=== PATIENT | male | born 1945 | race Caucasian/White ===

== ENCOUNTER → 2016-07-29 16:59 | Outpatient (CLI) | payer MEDICARE ==
[2016-01-21 04:57] VITALS: BMI 41.6
[~2016-07-29 16:59] MED LIST: ARAVA10 MG PO; BABY ASPIRIN81 MG PO; BACLOFEN20 M1 PO; BUDEPRION SR150 MG PO; CARAFATE1 G PO; CATAPRES0.1 MG PO; CLEOCIN HCL150 MG PO; COZAAR25 MG PO; COZAAR50 MG PO; CYCLOSPORINE50 MG PO; DEXILANT60 MG PO; DIOVAN HCT 320/1 TA2 PO; EFFEXOR XR150 MG PO; EFFEXOR XR75 MG PO; EFFIENT10 MG PO; ENDOCET 10-3251 TAB PO; FLOMAX0.4 MG PO; FOLIC ACID1 MG PO; FUROSEMIDE20 MG PO; HYDROCODONE-APA1 TAB PO; IMODIUM A-D2 MG PO; LEVAQUIN500 MG PO; MEDROL DOSE PACK4 MG PO; METHOTREXATE2.5 MG PO; NEURONTIN 300300 MG PO; NEXIUM20 MG PO; NITROSTAT0.4 MG SL; NORCO 10/325 TA1 TA1 PO; PLAVIX75 MG PO; PRAVACHOL40 MG PO; PROSCAR5 MG PO; PROTONIX40 MG PO; SOMA350 MG PO; TRICOR145 MG PO; TRIGLIDE160 MG PO; VITAMIN D31000 UNIT PO; VYTORIN 10-40 M1 TAB PO; WELLBUTRIN SR150 MG PO; ZANAFLEX4 MG; ZANAFLEX4 MG PO; ZANTAC150 MG PO; ZESTRIL20 MG PO; ZOCOR80 MG PO; ZOFRAN4 MG PO
[2016-07-29 19:21] LABS: ANION GAP 10.4 mmol/L (8-16); CALCIUM 8.8 mg/dL (8.5-10.1); CARBON DIOXIDE 31.9 mmol/L (21.0-32.0); CREATININE - SERUM 1.4 mg/dL (0.6-1.3); POTASSIUM - SERUM 4.3 mmol/L (3.5-5.1)
== END | disposition home or self-care (01) ==
LOC: D.LABREF 16:59
PROVIDERS: Internal Medicine Interventional Cardiology
DX: I25.10 Atherosclerotic heart disease of native coronary artery without angina pectoris (principal); R60.9 Edema, unspecified

== ENCOUNTER 2016-11-05 20:36 | Emergency (ER) | payer MEDICARE ==
[2016-01-21 04:57] VITALS: BMI 41.6
[2016-11-05 23:33] LABS: HEMATOCRIT 38.8 % (42.0-54.0); HEMOGLOBIN 12.7 g/dL (13.5-17.5); LYMPHOCYTES 25.8 % (15-50); MCH 31.1 pg (26.0-34.0); MCHC 32.7 g/dL (31.0-37.0); MCV 94.9 fL (80.0-100.0); MEAN PLATELET VOLUME 9.8 fL (7.4-10.4); NEUTROPHILS 62.7 % (40-80); RBC 4.09 10x6/uL (4.20-6.10); RDW 13.4 % (11.5-14.5); WBC 9.7 10x3/uL (4.8-10.8)
[2016-11-05 23:34] LABS: PLATELET COUNT 224 10x3/uL (130-400)
[2016-11-05 23:43] LABS: ALBUMIN 3.4 g/dL (3.4-5.0); ANION GAP 10.7 mmol/L (8-16); BILIRUBIN - TOTAL 0.22 mg/dL (0.2-1.3); CALCIUM 9.2 mg/dL (8.5-10.1); CARBON DIOXIDE 29.3 mmol/L (21.0-32.0); CREATININE - SERUM 1.3 mg/dL (0.6-1.3); PROTEIN - SERUM 7.1 g/dL (6.4-8.2)
== END 2016-11-06 00:20 | disposition home or self-care (01) ==
LOC: D.ER 20:36
PROVIDERS: Nurse Practitioner Family
DX: M50.30 Other cervical disc degeneration, unspecified cervical region (principal); S16.1XXA Strain of muscle, fascia and tendon at neck level, initial encounter; X58.XXXA Exposure to other specified factors, initial encounter; Y93.89 Activity, other specified; Y92.89 Other specified places as the place of occurrence of the external cause; I10 Essential (primary) hypertension; Z95.0 Presence of cardiac pacemaker

== ENCOUNTER → 2016-12-26 14:46 | Outpatient (CLI) | payer MEDICARE ==
[2016-01-21 04:57] VITALS: BMI 41.6
== END | disposition home or self-care (01) ==
LOC: D.RAD 14:46
DX: M54.5 Low back pain (principal); R53.1 Weakness

== ENCOUNTER 2017-04-08 06:03 | Day surgery (SDC) | payer MEDICARE ==
[~2017-04-08] VITALS: Ht 165.1 cm; Wt 101.8 kg
[2017-04-08] MEDS ORDERED: OMEPRAZOLE20 M1 PO (07:23)
[2017-04-08] MEDS ORDERED: ZANTAC150 MG PO (07:23)
[2017-04-08] MEDS ORDERED: CARDIZEM CD180 MG PO (07:24)
[2017-04-08] MEDS ORDERED: AZULFIDINE500 MG PO (07:25)
[2017-04-08] MEDS ORDERED: MS CONTIN15 MG PO (07:25)
[2017-04-08] MEDS ORDERED: EFFEXOR75 MG PO (07:26)
[2017-04-08] MEDS ORDERED: VITAMIN D31000 UNIT PO (07:26)
[2017-04-08 07:32] VITALS: BP 142/62; Ht 165.1 cm; Wt 101.8 kg
[2017-04-08 08:36] LABS: HEMATOCRIT 40.6 % (42.0-54.0); HEMOGLOBIN 13.2 g/dL (13.5-17.5); MCH 32.3 pg (26.0-34.0); MCHC 32.5 g/dL (31.0-37.0); MCV 99.3 fL (80.0-100.0); MEAN PLATELET VOLUME 10.7 fL (7.4-10.4); RBC 4.09 10x6/uL (4.20-6.10); WBC 6.8 10x3/uL (4.8-10.8)
--- NOTE | 2017-04-08 08:49 | NUR ---
0850-18 BAHRAINI CRE BALLOON TO 54 BAHRAINI
--- NOTE | 2017-04-08 10:12 | NUR ---
D/C INSTRUCTIONS EXPLAINED TO PT. VOICED UNDERSTANDING. COPIES OF ALL GIVEN TO PT.
--- NOTE | 2017-04-08 10:16 | NUR ---
D/C'D HOME VIA W/C TO PRIVATE CAR.
--- NOTE | 2017-04-15 15:43 | OP ---
PATIENT NAME: MONO MENSAH MEDICAL RECORD: [id number] :49 LOCATION:D.OPS ADMISSION DATE: SURGEON: MELQUIADES GOVEA MD DATE OF OPERATION: 04/08/2017 PREOPERATIVE DIAGNOSES: 1. Volume reflux. 2. Rule out eosinophilic esophagitis. 3. Dysphagia. 4. Gastroesophageal reflux. 5. History of gastric antral vascular ectasias. POSTOPERATIVE DIAGNOSES: 1. Volume reflux. 2. Rule out eosinophilic esophagitis. 3. Dysphagia. 4. Gastroesophageal reflux. 5. History of gastric antral vascular ectasias. 6. One prepyloric erosion. 7. Grade III hiatal hernia. 8. Rule out Walls esophagus. 9. No residual gastric antral vascular ectasias. PROCEDURES: Esophagogastroduodenoscopy with antral and random esophageal biopsies. Esophageal dilation through the catheter balloon to 54-Libyan. SURGEON: Melquiades Govea MD LAND SURVEY TECHNICIAN: None. BLOOD LOSS: Minimal. ANESTHESIA: IV sedation. COMPLICATIONS: None. The risks, possible complications, and alternatives to the procedure were explained to the patient. A consent form was signed. OPERATIVE COURSE: The patient was conveyed to the gastroenterology laboratory on 04/08/2017. IV sedation was induced by the anesthesia staff. A bite block was inserted. A gastroscope was inserted into the mouth. It was advanced easily into the esophagus. The stomach and duodenum were easily intubated. I advanced the third portion of duodenum. Upon withdrawal, retroflexed and angulus views were obtained. Antral biopsies were obtained. I then withdrew into the cardia of the stomach. Through the catheter a balloon was advanced. I sequentially dilated the entire length of the esophagus to 54-Libyan. The gastroscope and esophageal balloon were removed. The gastroscope was then readvanced. There had been no false passage. No perforation. Random esophageal biopsies were obtained to rule out Walls esophagus as well as eosinophilic esophagitis. The endoscope was then withdrawn under direct vision. I will see the patient in my office in 2-3 weeks. He needs to continue on his proton pump inhibitor. OPERATIVE REPORT [id number] MONO MENSAH TRANSINT:[id number] Voice Confirmation ID: [id number] DOCUMENT ID: [id number] MELQUIADES GOVEA MD at 5865 CC: VINAYAK MCFARLANE DO and MARK CORDERO MD [id number] DICTATION DATE: 04/08/17 0903 HIGH SCHOOL CHEMISTRY TEACHER: 04/08/17 1005 [facility] 04/08/17 [id number] [place] [address]
--- NOTE | 2017-04-15 15:43 | HP ---
PATIENT: MONO MENSAH MEDICAL RECORD: [id number] ACCOUNT: [id number] LOCATION:[place] : [birth year] ADMISSION DATE: 04/08/17 HISTORY AND PHYSICAL EXAMINATION CHIEF COMPLAINT: Reflux. HISTORY OF PRESENT ILLNESS: The patient has a history of hiatal hernia and he has dysphagia at the level of the cricopharyngeus, also reflux. He has volume refluxer. Also, history of gastric antral vascular ectasias. He has noted no rectal bleeding. I will plan for an EGD with biopsies of the esophagus and stomach with esophageal dilation and possible gold probe treatment of any areas of gastric antral vascular ectasias, also esophageal biopsies to rule out eosinophilic esophagitis. The patient has explosive belching as well as bloating. Reglan helps with the volume reflux. 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 He has diffuse abdominal pain as well. The risks, possible complications, and alternatives to procedure were explained to the patient. He elects to proceed. ALLERGIES: No known drug allergies. HOME MEDICATIONS: MS Contin, baclofen, Neurontin, Azulfidine, [place], nitroglycerin, Pravachol, Effexor, Lasix, omeprazole, aspirin, Zofran, Zantac. SOCIAL HISTORY: Ex-smoker. PAST MEDICAL AND SURGICAL HISTORY: Depression, neuropathy, he is hard of hearing, hiatal hernia, gastroesophageal reflux, history of prostate cancer, history of coronary stents, ORIF, foraminotomy, carpal tunnel release, hypertension, coronary artery disease, history of pacemaker placement, history of multiple coronary stents, COPD. PHYSICAL EXAMINATION: GENERAL: The patient does not appear acutely ill. He does not appear chronically ill. VITAL SIGNS: Reviewed. HEAD: External ears appear normal. EYES: Extraocular movements are intact. NECK: Trachea is midline. CHEST: No intercostal retractions. PULMONARY: Nonlabored. No stridor. ABDOMEN: No peritonitis with movement. IMPRESSION: 1. Gastroesophageal reflux. 2. Rule out eosinophilic esophagitis. 3. Dysphagia. 4. History of hiatal hernia. PLAN: EGD with biopsies and esophageal dilation. TRANSINT:[id number] Voice Confirmation ID: [id number] DOCUMENT ID: [id number] HISTORY AND PHYSICAL [id number] MAKENNAMONOBrenda GOVEA, MELQUIADES HERRERA at 1543 CC: MATILDE DOTY MD, VINAYAK MCFARLANE DO and MARK CORDERO [id number] DICTATION DATE: 04/08/17 0841 CEMETERY LABORER: 04/08/1754 [facility] SDC 04/08/17 [address] [place] [address]
== END 2017-04-08 10:18 | disposition home or self-care (01) ==
LOC: D.OPS 06:03
PROVIDERS: Anesthesiology
DX: K25.9 Gastric ulcer, unspecified as acute or chronic, without hemorrhage or perforation (principal); K44.9 Diaphragmatic hernia without obstruction or gangrene; R13.10 Dysphagia, unspecified; I25.10 Atherosclerotic heart disease of native coronary artery without angina pectoris; Z95.5 Presence of coronary angioplasty implant and graft; I10 Essential (primary) hypertension; Z95.0 Presence of cardiac pacemaker; J44.9 Chronic obstructive pulmonary disease, unspecified; F32.9 Major depressive disorder, single episode, unspecified; G62.9 Polyneuropathy, unspecified; Z85.46 Personal history of malignant neoplasm of prostate; Z79.891 Long term (current) use of opiate analgesic; Z79.82 Long term (current) use of aspirin; Z79.899 Other long term (current) drug therapy; Z87.891 Personal history of nicotine dependence; Z01.812 Encounter for preprocedural laboratory examination

== ENCOUNTER 2018-01-01 08:35 | Day surgery (SDC) | payer MEDICARE ==
[2017-12-31 15:12] LABS: BASOPHILS 0.6 % (0-2); EOSINOPHILS 5.6 % (0-7); HEMATOCRIT 42.6 % (42.0-54.0); HEMOGLOBIN 14.2 g/dL (13.5-17.5); IMMATURE GRANULOCYTES 0.5 % (0-5); LYMPHOCYTES 25.8 % (15-50); MCH 32.4 pg (26.0-34.0); MCHC 33.3 g/dL (31.0-37.0); MCV 97.3 fL (80.0-100.0); MEAN PLATELET VOLUME 9.9 fL (7.4-10.4); MONOCYTES 9.9 % (2-11); NEUTROPHILS 57.6 % (40-80); PLATELET COUNT 297 10x3/uL (130-400); RBC 4.38 10x6/uL (4.20-6.10); RDW 13.3 % (11.5-14.5); WBC 8.8 10x3/uL (4.8-10.8)
[2017-12-31 15:20] LABS: APTT 25.4 SECONDS (22.8-39.4); INR 1.06 (0.85-1.17); PROTIME 13.4 SECONDS (11.6-15.0)
[2017-12-31 15:22] LABS: ANION GAP 11.5 mmol/L (8-16); CALCIUM 8.7 mg/dL (8.5-10.1); CARBON DIOXIDE 26.5 mmol/L (21.0-32.0); CREATININE - SERUM 1.2 mg/dL (0.6-1.3)
[~2018-01-01] VITALS: Ht 165.1 cm; Wt 100.2 kg
--- NOTE | ~2018-01-01 | OP ---
PATIENT NAME: MONO MENSAH MEDICAL RECORD: [id number] :49 LOCATION:D.OPS ADMISSION DATE: SURGEON: CEZAR SMITH MD DATE OF OPERATION: 01/01/2018 PREOPERATIVE DIAGNOSIS: Right cubital tunnel syndrome. POSTOPERATIVE DIAGNOSIS: Right cubital tunnel syndrome. PROCEDURE: Right cubital tunnel release. SURGEON: Cezar Smith MD ANESTHESIA: General. INTRAOPERATIVE COMPLICATIONS: None. SUMMARY OF PATHOLOGIC FINDINGS: The patient has very tight bands at the cubital tunnel, more so proximally. OPERATIVE SUMMARY IN DETAIL: After obtaining the appropriate preoperative orthopedic surgery consent as well as anesthetic consultation, evaluation and clearance, the patient was brought to the operating room and placed on the operating table in supine. After general laryngeal mask was administered, tourniquet was placed about the proximal aspect of the right upper extremity. Right upper extremity was then prepped and draped in routine sterile fashion. The arm was elevated and exsanguinated. Tourniquet was inflated to 250 mmHg. Planned incision was drawn with a sterile marking pin. The incision was made between the medial epicondyle and the ulnar and the olecranon. Incision was gently taken down until the ulnar nerve was identified. Serial and sequential release of the ulnar nerve was done for approximately 10 cm distal and 10 cm proximal. The ulnar nerve was not transposed. Once the ulnar was completely free of all adhesions, wound was then irrigated and closed with 2-0 Vicryl followed by 4-0 Prolene in running fashion. Sterile dressings were applied. Tourniquet was deflated. The patient was awakened and taken to the recovery room in stable condition. All final needle and sponge counts were correct. TRANSINT:[id number] Voice Confirmation ID: [id number] DOCUMENT ID: [id number] CEZAR SMITH MD at 0939 CC: [id number] DICTATION DATE: 01/07/18820 HAND COPER: 01/07/18 1114 [facility] 01/01/[address] [address]
[~2018-01-01 08:35] MED LIST changes: +AZULFIDINE500 MG PO; +CARDIZEM CD180 MG PO; +CARTIA XT120 MG PO; +EFFEXOR75 MG PO; +MS CONTIN15 MG PO; +OMEPRAZOLE20 M1 PO
[2018-01-01 08:49] VITALS: BP 151/74; Ht 165.1 cm; Wt 100.2 kg
[2018-01-01] MEDS ORDERED: DILAUDID2 MG PO (10:04)
== END 2018-01-01 11:25 | disposition home or self-care (01) ==
LOC: D.OPS 08:35 → D.PAN 09:30 → D.OPS 10:30 → D.PAN 11:00 → D.OPS 11:00
PROVIDERS: Anesthesiology
DX: G56.21 Lesion of ulnar nerve, right upper limb (principal); Z01.812 Encounter for preprocedural laboratory examination

== ENCOUNTER → 2018-01-13 16:39 | Outpatient (CLI) | payer MEDICARE ==
[2018-01-01 08:49] VITALS: BMI 36.8
[~2018-01-13 16:39] MED LIST changes: +DILAUDID2 MG PO
[2018-01-13 17:27] LABS: BASOPHILS 0.5 % (0-2); EOSINOPHILS 4.7 % (0-7); HEMATOCRIT 40.9 % (42.0-54.0); HEMOGLOBIN 13.8 g/dL (13.5-17.5); IMMATURE GRANULOCYTES 0.5 % (0-5); LYMPHOCYTES 26.3 % (15-50); MCH 32.3 pg (26.0-34.0); MCHC 33.7 g/dL (31.0-37.0); MCV 95.8 fL (80.0-100.0); MEAN PLATELET VOLUME 10.7 fL (7.4-10.4); MONOCYTES 9.6 % (2-11); NEUTROPHILS 58.4 % (40-80); PLATELET COUNT 266 10x3/uL (130-400); RBC 4.27 10x6/uL (4.20-6.10); RDW 13.4 % (11.5-14.5); WBC 7.7 10x3/uL (4.8-10.8)
== END | disposition home or self-care (01) ==
LOC: D.LABREF 16:39
PROVIDERS: Nurse Practitioner
DX: I10 Essential (primary) hypertension (principal)

== ENCOUNTER → 2018-02-02 08:09 | Outpatient (CLI) | payer MEDICARE ==
[2018-01-01 08:49] VITALS: BMI 36.8
== END | disposition home or self-care (01) ==
LOC: D.NM 08:09
DX: C61 Malignant neoplasm of prostate (principal)

== ENCOUNTER 2018-02-18 08:24 | Inpatient (IN) | payer MEDICARE ==
[~2018-02-18] VITALS: Ht 165.1 cm; Wt 110.2 kg
[~2018-02-18 08:24] MED LIST changes: +ZANTAC300 MG PO
[2018-02-18] MEDS ORDERED: CARDIZEM CD180 MG PO (08:40)
[2018-02-18] MEDS ORDERED: NORCO 7.5/325 T1 TA1 PO (08:41)
[2018-02-18] MEDS ORDERED: COZAAR25 MG PO (08:43)
[2018-02-18] MEDS ORDERED: PROTONIX40 MG PO (08:43)
[2018-02-18] MEDS ORDERED: PLAQUENIL 200200 MG PO (08:44)
[2018-02-18 08:58] VITALS: BP 131/101
[2018-02-18 09:16] LABS: HEMATOCRIT 37.7 % (42.0-54.0); HEMOGLOBIN 12.7 g/dL (13.5-17.5); LYMPHOCYTES 11.9 % (15-50); MCH 32.2 pg (26.0-34.0); MCHC 33.7 g/dL (31.0-37.0); MCV 95.4 fL (80.0-100.0); MEAN PLATELET VOLUME 9.6 fL (7.4-10.4); NEUTROPHILS 79.6 % (40-80); PLATELET COUNT 291 10x3/uL (130-400); RBC 3.95 10x6/uL (4.20-6.10); RDW 13.2 % (11.5-14.5); WBC 12.6 10x3/uL (4.8-10.8)
[2018-02-18 09:24] LABS: APTT 28.8 SECONDS (22.8-39.4); INR 1.1 (0.85-1.17); PROTIME 13.8 SECONDS (11.6-15.0)
[2018-02-18 09:32] LABS: ALBUMIN 4.1 g/dL (3.4-5.0); ALKALINE PHOSPHATASE 64 U/L (46-116); ALT (SGPT) 38 U/L (10-68); BILIRUBIN - TOTAL 0.38 mg/dL (0.2-1.3); CALC OSMOLALITY 275 mosm/kg (275-300); CALCIUM 8.8 mg/dL (8.5-10.1); CARBON DIOXIDE 22.7 mmol/L (21.0-32.0); CHLORIDE - SERUM 100 mmol/L (98-107); CREATININE - SERUM 3.6 mg/dL (0.6-1.3); GLUCOSE 105 mg/dL (74-106); POTASSIUM - SERUM 4.3 mmol/L (3.5-5.1); PROTEIN - SERUM 7.8 g/dL (6.4-8.2); SODIUM 134 mmol/L (136-145); UREA NITROGEN 35 mg/dL (7-18); eGFR NON AFRICAN AMERICAN 18 mL/min (90-120)
[2018-02-18 09:43] LABS: CKMB 58.2 U/L (0.0-3.6); TROPONIN-I < 0.017 ng/mL (0.000-0.060)
[2018-02-18 09:46] LABS: CREATINE KINASE 1824 UL (21-232)
[2018-02-18 10:51] LABS: APPEARANCE HAZY (CLEAR); BACTERIA MODERATE /hpf (NONE SEEN); BILIRUBIN NEGATIVE (NEGATIVE); COLOR YELLOW (YELLOW); EPITHELIAL CELLS 0-5 /hpf (0-5); GLUCOSE NEGATIVE (NEGATIVE); GRANULAR CAST RARE /lpf (NONE SEEN); HYALINE CAST 0-5 /lpf (NONE SEEN); KETONE NEGATIVE (NEGATIVE); MUCUS <1+ /lpf (NONE SEEN); NITRITE NEGATIVE (NEGATIVE); PROTEIN NEGATIVE (NEGATIVE); SPECIFIC GRAVITY 1.025 (1.005-1.020); UROBILINOGEN NORMAL (NORMAL); WHITE CELLS - URINE 0-5 /hpf (0-5)
[2018-02-18 13:45] VITALS: BP 125/76
[2018-02-18 16:53] VITALS: BP 125/76; BMI 36.6
[2018-02-18 18:55] LABS: PROTEIN - URINE 50.4 mg/dL (0.0-11.9)
[2018-02-18 18:57] LABS: CREATININE - URINE 247.1 mg/dL (30-125); PRO/CRE RATIO URINE 0.2 mg/g
[2018-02-18 20:00] VITALS: BP 127/85
[2018-02-19] VITALS: BP 141/96
[2018-02-19 04:00] VITALS: BP 141/90
[2018-02-19 06:26] LABS: BASOPHILS 0.1 % (0-2); HEMATOCRIT 35.9 % (42.0-54.0); HEMOGLOBIN 11.6 g/dL (13.5-17.5); IMMATURE GRANULOCYTES 0.4 % (0-5); LYMPHOCYTES 18.3 % (15-50); MCH 31.9 pg (26.0-34.0); MCHC 32.3 g/dL (31.0-37.0); MONOCYTES 9.6 % (2-11); NEUTROPHILS 69.6 % (40-80); RBC 3.64 10x6/uL (4.20-6.10); RDW 13.8 % (11.5-14.5); WBC 10.6 10x3/uL (4.8-10.8)
[2018-02-19 06:39] LABS: MCV 98.6 fL (80.0-100.0); PLATELET COUNT 214 10x3/uL (130-400)
[2018-02-19 07:09] LABS: ALBUMIN 3.5 g/dL (3.4-5.0); ALKALINE PHOSPHATASE 51 U/L (46-116); ALT (SGPT) 39 U/L (10-68); BILIRUBIN - TOTAL 0.37 mg/dL (0.2-1.3); CALCIUM 8.2 mg/dL (8.5-10.1); CHLORIDE - SERUM 101 mmol/L (98-107); GLUCOSE 93 mg/dL (74-106); POTASSIUM - SERUM 3.9 mmol/L (3.5-5.1); PROTEIN - SERUM 6.9 g/dL (6.4-8.2); SODIUM 137 mmol/L (136-145); URIC ACID 8.5 mg/dL (2.6-7.2)
[2018-02-19 07:11] LABS: CALC OSMOLALITY 284 mosm/kg (275-300); CKMB 49.1 U/L (0.0-3.6); CREATINE KINASE 1798 UL (21-232); CREATININE - SERUM 2.6 mg/dL (0.6-1.3); UREA NITROGEN 44 mg/dL (7-18); eGFR NON AFRICAN AMERICAN 26 mL/min (90-120)
[2018-02-19 09:03] VITALS: BP 215/175
[2018-02-19 11:04] VITALS: BP 113/64
[2018-02-19 12:33] VITALS: Ht 165.1 cm; Wt 110.2 kg
[2018-02-19 15:26] VITALS: BP 122/80
[2018-02-19 19:36] LABS: APPEARANCE CLEAR (CLEAR); BILIRUBIN NEGATIVE (NEGATIVE); COLOR YELLOW (YELLOW); GLUCOSE NEGATIVE (NEGATIVE); KETONE NEGATIVE (NEGATIVE); NITRITE NEGATIVE (NEGATIVE); PROTEIN TRACE mg/dL (NEGATIVE); SPECIFIC GRAVITY 1.025 (1.005-1.020); UROBILINOGEN NORMAL (NORMAL); WHITE CELLS - URINE 0-5 /hpf (0-5)
[2018-02-19 19:37] LABS: BACTERIA MODERATE /hpf (NONE SEEN); EPITHELIAL CELLS 0-5 /hpf (0-5)
[2018-02-19 20:37] VITALS: BP 119/59
[2018-02-20 01:19] VITALS: BP 120/94
[2018-02-20 05:38] VITALS: BP 138/57
[2018-02-20 06:28] LABS: BASOPHILS 0.1 % (0-2); EOSINOPHILS 2.4 % (0-7); HEMATOCRIT 35.3 % (42.0-54.0); HEMOGLOBIN 11.2 g/dL (13.5-17.5); IMMATURE GRANULOCYTES 0.3 % (0-5); LYMPHOCYTES 17.9 % (15-50); MCH 31.6 pg (26.0-34.0); MCHC 31.7 g/dL (31.0-37.0); MCV 99.7 fL (80.0-100.0); MEAN PLATELET VOLUME 10.3 fL (7.4-10.4); MONOCYTES 11.1 % (2-11); NEUTROPHILS 68.2 % (40-80); PLATELET COUNT 202 10x3/uL (130-400); RBC 3.54 10x6/uL (4.20-6.10); RDW 13.8 % (11.5-14.5); WBC 7.6 10x3/uL (4.8-10.8)
[2018-02-20 07:04] LABS: CALCIUM 8.2 mg/dL (8.5-10.1); CARBON DIOXIDE 31.8 mmol/L (21.0-32.0); CHLORIDE - SERUM 103 mmol/L (98-107); PHOSPHOROUS 3.1 mg/dL (2.5-4.9); POTASSIUM - SERUM 3.4 mmol/L (3.5-5.1); SODIUM 139 mmol/L (136-145); UREA NITROGEN 40 mg/dL (7-18)
[2018-02-20 07:09] LABS: CALC OSMOLALITY 290 mosm/kg (275-300); CREATINE KINASE 1308 UL (21-232); CREATININE - SERUM 1.6 mg/dL (0.6-1.3); GLUCOSE 156 mg/dL (74-106); eGFR NON AFRICAN AMERICAN 46 mL/min (90-120)
[2018-02-20 07:10] LABS: CKMB 17.2 U/L (0.0-3.6)
[2018-02-20 12:12] VITALS: BP 149/69
[2018-02-20 12:18] VITALS: BP 140/51
[2018-02-20 21:13] VITALS: BP 145/58
[2018-02-21 00:54] VITALS: BP 132/45
[2018-02-21 05:23] LABS: BASOPHILS 0.2 % (0-2); EOSINOPHILS 2.8 % (0-7); HEMATOCRIT 33.9 % (42.0-54.0); HEMOGLOBIN 10.9 g/dL (13.5-17.5); IMMATURE GRANULOCYTES 0.2 % (0-5); LYMPHOCYTES 13.5 % (15-50); MCH 31.8 pg (26.0-34.0); MCHC 32.2 g/dL (31.0-37.0); MCV 98.8 fL (80.0-100.0); MEAN PLATELET VOLUME 10.2 fL (7.4-10.4); MONOCYTES 12.2 % (2-11); NEUTROPHILS 71.1 % (40-80); PLATELET COUNT 199 10x3/uL (130-400); RBC 3.43 10x6/uL (4.20-6.10); RDW 13.5 % (11.5-14.5); WBC 8.6 10x3/uL (4.8-10.8)
[2018-02-21 05:25] VITALS: BP 149/47
[2018-02-21 05:44] LABS: CALCIUM 8.5 mg/dL (8.5-10.1); CARBON DIOXIDE 33.8 mmol/L (21.0-32.0); CHLORIDE - SERUM 106 mmol/L (98-107); GLUCOSE 161 mg/dL (74-106); SODIUM 140 mmol/L (136-145)
[2018-02-21 05:46] LABS: CALC OSMOLALITY 281 mosm/kg (275-300); CREATININE - SERUM 0.9 mg/dL (0.6-1.3); UREA NITROGEN 12 mg/dL (7-18); eGFR NON AFRICAN AMERICAN 89 mL/min (90-120)
[2018-02-21 06:39] LABS: CREATINE KINASE 464 UL (21-232); PHOSPHOROUS 1.1 mg/dL (2.5-4.9)
[2018-02-21 06:42] LABS: CKMB 5.1 U/L (0.0-3.6)
[2018-02-21 08:54] VITALS: BP 142/58
[2018-02-21 12:36] VITALS: BP 151/58
[2018-02-21 16:25] VITALS: BP 146/77
[2018-02-21 20:30] VITALS: BP 201/81
[2018-02-22 00:30] VITALS: BP 131/81
[2018-02-22 04:30] VITALS: BP 136/80
[2018-02-22 05:06] LABS: BASOPHILS 0.2 % (0-2); EOSINOPHILS 1.8 % (0-7); HEMOGLOBIN 11.1 g/dL (13.5-17.5); IMMATURE GRANULOCYTES 0.2 % (0-5); LYMPHOCYTES 13.4 % (15-50); MCH 32.3 pg (26.0-34.0); MCHC 33.6 g/dL (31.0-37.0); MEAN PLATELET VOLUME 10.5 fL (7.4-10.4); MONOCYTES 11.4 % (2-11); PLATELET COUNT 229 10x3/uL (130-400); RBC 3.44 10x6/uL (4.20-6.10); RDW 13.1 % (11.5-14.5)
[2018-02-22 05:10] LABS: MCV 95.9 fL (80.0-100.0)
[2018-02-22 05:32] LABS: CALCIUM 8.8 mg/dL (8.5-10.1); CARBON DIOXIDE 25.9 mmol/L (21.0-32.0); CHLORIDE - SERUM 105 mmol/L (98-107); CREATININE - SERUM 0.8 mg/dL (0.6-1.3); POTASSIUM - SERUM 3.4 mmol/L (3.5-5.1); SODIUM 140 mmol/L (136-145); eGFR NON AFRICAN AMERICAN > 90 mL/min (90-120)
[2018-02-22 05:38] LABS: CALC OSMOLALITY 277 mosm/kg (275-300); GLUCOSE 112 mg/dL (74-106); PHOSPHOROUS 1.7 mg/dL (2.5-4.9); UREA NITROGEN 7 mg/dL (7-18)
[2018-02-22 08:37] VITALS: BP 160/40
[2018-02-22 11:16] VITALS: BP 177/72
[2018-02-22] MEDS ORDERED: NEUTRA-PHOS PAC1 PK1 PO (12:29)
== END 2018-02-22 14:41 | disposition home or self-care (01) | DRG 683 ==
LOC: D.ER 08:24 → D.M2 12:03 → D.EDHOLD 12:03 → D.M2 13:48
PROVIDERS: Family Medicine; Internal Medicine Nephrology
DX: N17.9 Acute kidney failure, unspecified (principal); N39.0 Urinary tract infection, site not specified; M62.82 Rhabdomyolysis; J44.9 Chronic obstructive pulmonary disease, unspecified; K21.9 Gastro-esophageal reflux disease without esophagitis; E78.5 Hyperlipidemia, unspecified; I25.10 Atherosclerotic heart disease of native coronary artery without angina pectoris; I10 Essential (primary) hypertension; G62.9 Polyneuropathy, unspecified; E83.39 Other disorders of phosphorus metabolism; E87.6 Hypokalemia; Z85.46 Personal history of malignant neoplasm of prostate; Z95.1 Presence of aortocoronary bypass graft; Z95.0 Presence of cardiac pacemaker; Z87.891 Personal history of nicotine dependence

== ENCOUNTER 2018-04-12 09:14 | Observation (INO) | payer MEDICARE ==
[~2018-04-12] VITALS: Ht 165.1 cm; Wt 100.9 kg
--- NOTE | ~2018-04-12 | MORECARE ---
CASE MANAGEMENT DISCHARGE SUMMARY PATIENT: MONO MENSAH UNIT: [id number] ADM DATE: 04/12/18 AGE: 72 : 47 SEX: M ROOM/BED: D.2139 AUTHOR: JOSEPH RÍOS PHYSICIAN: REFERRING PHYSICIAN: NADER SHORT MD DATE OF SERVICE: 04/13/18 Discharge Plan Patient Name: MONO MENSAH Facility: [facility]:[place] : 1945 Planned Disposition: Home Anticipated Discharge Date: 04/13/18 Discharge Date: Expected LOS: 1 Initial Reviewer: [email or web address] Initial Review Date: 04/13/2018 Generated: 04/13/18 11:47 am Patient Name: MONO MENSAH Page 08540 at 1047 All edits/amendments must be made on the electronic document DICTATION DATE: 04/13/18 1047 LOCK SETTER: PAOLO 04/13/18 1047 RPT#: [id number] DC DATE: STATUS: ADM IN [facility] [address] [place] [address] END OF REPORT
--- NOTE | ~2018-04-12 | MORECARE ---
CASE MANAGEMENT DISCHARGE SUMMARY PATIENT: MONO MENSAH UNIT: [id number] ADM DATE: 04/12/18 AGE: 72 : 47 SEX: M ROOM/BED: D.6456 AUTHOR: KHUSHBU,DOC PHYSICIAN: REFERRING PHYSICIAN: NADER SHORT MD DATE OF SERVICE: 04/13/18 Discharge Plan Patient Name: MONO MENSAH Facility: [facility]:[place] : 1945 Planned Disposition: Home Anticipated Discharge Date: 04/13/18 Discharge Date: Expected LOS: 1 Initial Reviewer: [email or web address] Initial Review Date: 04/13/2018 Generated: 04/13/18 12:37 pm Comments DCP- Discharge Planning Updated by [email or web address]: Tex Lara on 04/13/18 10:[address] Patient Name: MONO MENSAH Admission Status: ER Accout number: [id number] Admission Date: 04-12-2018 : 1945 Admission Diagnosis: Attending: NADER SHORT Current LOS: 1 Anticipated DC Date: 04-13-2018 Planned Disposition: Home Primary Insurance: MEDICARE A & B Discharge Planning Comments: CM MET WITH PT AND SPOUSE IN ROOM TO DISCUSS DISCHARGE PLANNING AND NEEDS. MONO MENSAH provided verbal consent to discuss current and ongoing needs with/in the presence of: SAMUEL, SPOUSE. PT REPORTS LIVING AT HOME INDEPENDENTLY WITH SPOUSE. PT HAS CPAP THAT HE DOES NOT WEAR AND NEBULIZER FROM [facility]. PT HAS NO OUTSIDE SERVICES ASSISTING IN THE HOME. CM DISCUSSED AVAILABILITY OF HOME HEALTH, REHAB SERVICES AND MEDICAL EQUIPMENT. PT DENIES DISCHARGE NEEDS OTHER THAN OXYGEN THAT WAS ORDERED. PT NOT HAPPY ABOUT HAVING TO WEAR OXYGEN, PT ASKED CM TO MAKE ARRANGEMENTS WITH [facility]. PT REPORTS HIS IS HERE AND WILL PICK HIM UP FOR DISCHARGE HOME NOW. CM CALLED [facility], , SPOKE TO AMADOR AND PROVIDED REFERRAL INFORMATION. CM FAXED REFERRAL TO [facility] AT [phone]. [facility] TO DELIVER PORTABLE OXYGEN TO PT'S HOSPITAL ROOM FOR DISCHARGE HOME. [facility] TO ARRANGE HOME OXYGEN AT PT'S HOME AFTER HIS ARRIVAL THERE. BEDSIDE NURSE NOTIFIED. Exhauster Engineer: Tex Lara DCPIA - Discharge Planning Initial Assessment Updated by [email or web address]: Tex Lara on 04/13/18 11:31 am * Is the patient Alert and Oriented? Yes * How many steps to enter\exit or inside your home? * PCP DR. SHORT * Pharmacy [facility] * Preadmission Environment Home with Family * ADLs Independent * Equipment CPAP Nebulizer * Other Equipment [facility] - MEDICAL EQUIPMENT PROVIDER * List name and contact numbers for known caregivers / representatives who currently or will assist patient after discharge: SAMUEL MENSAH, SPOUSE, * Verbal permission to speak to the caregivers and representatives has been obtained from the patient. Yes * Community resources currently utilized None * Please name any agencies selected above. NONE * Additional services required to return to the preadmission environment? No * Can the patient safely return to the preadmission environment? Yes * Has this patient been hospitalized within the prior 30 days at any hospital? No Last DP export: 04/13/18 9:56 Patient Name: MONO MENSAH Page 59175 at 1137 All edits/amendments must be made on the electronic document DICTATION DATE: 04/13/18 1136 MELT ROOM OPERATOR: PAOLO 04/13/18 1136 RPT#: [id number] [place] DATE: STATUS: ADM IN [facility] [address] [place] [address] END OF REPORT
--- NOTE | ~2018-04-12 | HP ---
PATIENT: MONO MENSAH MEDICAL RECORD: [id number] ACCOUNT: [id number] LOCATION:[address] : [birth year] ADMISSION DATE: 04/12/18 PCP: NADER SHORT HISTORY AND PHYSICAL EXAMINATION DATE OF ADMISSION: 04/12/2018 CHIEF COMPLAINT: Weakness, wheezing and shortness of breath. HISTORY OF PRESENT ILLNESS: This is a 72-year-old white male with multiple medical problems followed by Paradise Cid APN, at [facility]. His brought him in for increased lethargy and weakness. She states the last time he was like this, he was admitted and had kidney failure. He is not sleeping well. He has a history of sleep apnea; however, has not been able to tolerate CPAP in the past. In the ER, a CAT scan and chest x-ray showed no acute problems. White count was normal. His creatinine was a little elevated at 1.9. CK little elevated at 424, but troponin is less than 0.017. ABG showed he was a little acidotic with pH of 7.28, pCO2 of 54, pO2 of 76 on 2 liters of oxygen. Urine drug screen is positive for opiates. He is admitted for further treatment. PAST MEDICAL AND SURGICAL HISTORY: He has had hypertension, heart disease, hyperlipidemia, COPD, sleep apnea, cataracts, psoriasis, depression, chronic neck pain, reflux, prostate cancer, followed at [facility], soon to be evaluated for radiation therapy. PAST SURGICAL HISTORY: Pacemaker placement, coronary stents. He has had a cervical spine surgeries, has spinal cord stimulator now. DRUG ALLERGIES: None known. HOME MEDICATIONS: Sulfasalazine 1500 mg t.i.d., baclofen 10 mg t.i.d., diltiazem CD 180 once a day, Benicar 20 mg twice a day, gabapentin 300 mg twice a day, Effexor 75 twice a day, hydrocodone 7.5/325 one pill twice a day, morphine ER 15 mg twice a day, Lasix 20 mg once a day, Zofran 4 mg p.r.n. nausea, Zantac 150 mg at bedtime, Protonix 40 mg twice a day, vitamin D3 1000 units twice a day, Plaquenil 200 mg once a day, aspirin 81 mg a day. FAMILY HISTORY: Parents had lung and heart disease. HABITS: The patient is a former smoker, no alcohol or drugs. SOCIAL HISTORY: He is , now retired. He is also disabled with his neck problems. REVIEW OF SYSTEMS: GENERAL: No major weight changes. HEENT: He has sinus problems. RESPIRATORY: He has COPD. He has nebulizer at home, but does not use it. He has sleep apnea, but is intolerant of CPAP. GASTROINTESTINAL: He has had reflux. GENITOURINARY: Again, his prostate cancer been followed by [facility] for a while, now being referred for evaluation for radiation. NEUROLOGIC: No migraines, no seizures. DERMATOLOGY: He has psoriasis. HISTORY AND PHYSICAL [id number] MONO MENSAH PSYCHIATRIC: He has depression. PHYSICAL EXAMINATION: VITAL SIGNS: Temperature 98.2, heart rate 64, respirations 18, blood pressure 144/79, O2 sat on 2 liters is 92% GENERAL: Exam took place in the Emergency Department. He is lying on the exam bed, sleeping, snoring, very difficult to arouse, most of the history is from the . HEENT: Unremarkable. NECK: Supple. No bruits. HEART: Regular rate and rhythm. LUNGS: Fairly clear, few scattered wheezes. ABDOMEN: Soft, obese. EXTREMITIES: Trace edema. MUSCULOSKELETAL: Chronic pain in his neck. LABORATORY AND DIAGNOSTIC DATA: CT of the head shows no acute process. Chest x-ray shows no acute process. CBC with a white count of 10,400, hemoglobin 12.3, hematocrit 37.8. Basic metabolic panel is all okay except creatinine elevated at 1.9. Liver function tests are okay. CK is little elevated at 424. The troponin is less than 0.017. ABG: pH 7.28, pCO2 54, pO2 76 on 2 liters of oxygen. Urine drug screen positive for opiates. Urinalysis okay. ASSESSMENT: 1. Altered mental status due to chronic obstructive pulmonary disease. 2. Obstructive sleep apnea with history of noncompliance, on CPAP. 3. Chronic pain, on morphine and [place]. 4. Prostate cancer to be evaluated soon for radiation therapy. 5. Hypertension. 6. History of heart disease. PLAN: We will consult pulmonology for his respiratory problems. He has actually never seen a game technician. May need a revisit sleep apnea. We will follow his kidney function and see if it is getting worse or if it would get better. Other tests or procedures as warranted. TRANSINT:[id number] Voice Confirmation ID: [id number] DOCUMENT ID: [id number] CHUYITA ROSALES MD at 1908 CC: [id number] DICTATION DATE: 04/13/18828 BRAKE LINING DRILLER: 04/13/18 1106 DIS IN 04/13/18 [facility] [address] [id number]
--- NOTE | ~2018-04-12 | MORECARE ---
CASE MANAGEMENT DISCHARGE SUMMARY PATIENT: MONO MENSAH UNIT: [id number] ADM DATE: 04/12/18 AGE: 72 : 47 SEX: M ROOM/BED: D.2139 AUTHOR: JOSEPH RÍOS PHYSICIAN: REFERRING PHYSICIAN: NADER SHORT MD DATE OF SERVICE: 04/13/18 Discharge Plan Patient Name: MONO MENSAH Facility: [facility]:[place] : 1945 Planned Disposition: Home Anticipated Discharge Date: 04/13/18 Discharge Date: Expected LOS: 1 Initial Reviewer: [email or web address] Initial Review Date: 04/13/2018 Generated: 04/13/18 11:56 am DCPIA - Discharge Planning Initial Assessment Updated by [email or web address]: Tex Lara on 04/13/18 10:52 am * Is the patient Alert and Oriented? Yes * How many steps to enter\exit or inside your home? * PCP DR. SHORT * Pharmacy [facility] * Preadmission Environment Home with Family * ADLs Independent * Equipment Nebulizer * Other Equipment [facility] - MEDICAL EQUIPMENT PROVIDER * List name and contact numbers for known caregivers / representatives who currently or will assist patient after discharge: SAMUEL MENSAH, SPOUSE, * Verbal permission to speak to the caregivers and representatives has been obtained from the patient. Yes * Community resources currently utilized None * Please name any agencies selected above. NONE * Additional services required to return to the preadmission environment? No * Can the patient safely return to the preadmission environment? Yes * Has this patient been hospitalized within the prior 30 days at any hospital? No External Providers External Provider: [facility] Next Contact Date: 04/13/2018 Service Request Date: Service Type: Resolution: Reviewer: Comments: Last DP export: 04/13/18 9:47 Patient Name: MONO MENSAH Page 26094 at 1056 All edits/amendments must be made on the electronic document DICTATION DATE: 04/13/18 1056 BUSINESS RESILIENCY MANAGER: PAOLO 04/13/18 1056 RPT#: [id number] DC DATE: STATUS: ADM IN [facility] [address] [place] [address] END OF REPORT
[~2018-04-12 09:14] MED LIST changes: +NEUTRA-PHOS PAC1 PK1 PO; +NORCO 7.5/325 T1 TA1 PO; +PLAQUENIL 200200 MG PO
[2018-04-12 10:46] LABS: BASOPHILS 0.5 % (0-2); EOSINOPHILS 3.5 % (0-7); HEMATOCRIT 37.8 % (42.0-54.0); HEMOGLOBIN 12.3 g/dL (13.5-17.5); IMMATURE GRANULOCYTES 0.4 % (0-5); LYMPHOCYTES 25.4 % (15-50); MCH 31.6 pg (26.0-34.0); MCHC 32.5 g/dL (31.0-37.0); MCV 97.2 fL (80.0-100.0); MEAN PLATELET VOLUME 10.5 fL (7.4-10.4); NEUTROPHILS 60.2 % (40-80); PLATELET COUNT 244 10x3/uL (130-400); RBC 3.89 10x6/uL (4.20-6.10); RDW 13.5 % (11.5-14.5); WBC 10.4 10x3/uL (4.8-10.8)
[2018-04-12 10:53] LABS: ALBUMIN 3.8 g/dL (3.4-5.0); ALKALINE PHOSPHATASE 62 U/L (46-116); ALT (SGPT) 26 U/L (10-68); BILIRUBIN - TOTAL 0.32 mg/dL (0.2-1.3); CALC OSMOLALITY 280 mosm/kg (275-300); CALCIUM 8.7 mg/dL (8.5-10.1); CARBON DIOXIDE 23.9 mmol/L (21.0-32.0); CHLORIDE - SERUM 104 mmol/L (98-107); CREATININE - SERUM 1.9 mg/dL (0.6-1.3); GLUCOSE 104 mg/dL (74-106); POTASSIUM - SERUM 4.4 mmol/L (3.5-5.1); SODIUM 140 mmol/L (136-145); UREA NITROGEN 18 mg/dL (7-18); eGFR NON AFRICAN AMERICAN 37 mL/min (90-120)
[2018-04-12 11:01] LABS: CKMB 12.2 U/L (0.0-3.6); CREATINE KINASE 424 UL (21-232); TROPONIN-I < 0.017 ng/mL (0.000-0.060)
[2018-04-12 11:41] LABS: APPEARANCE CLEAR (CLEAR); BILIRUBIN NEGATIVE (NEGATIVE); COLOR YELLOW (YELLOW); GLUCOSE NEGATIVE (NEGATIVE); KETONE NEGATIVE (NEGATIVE); NITRITE NEGATIVE (NEGATIVE); PROTEIN TRACE mg/dL (NEGATIVE); UROBILINOGEN NORMAL (NORMAL)
[2018-04-12 11:43] LABS: BACTERIA FEW /hpf (NONE SEEN); EPITHELIAL CELLS 0-5 /hpf (0-5); RED CELLS - URINE 0-5 /hpf (0-5); UDS - AMPHET NEGATIVE QUAL (NEGATIVE); UDS - BARB NEGATIVE QUAL (NEGATIVE); UDS - BENZO NEGATIVE QUAL (NEGATIVE); UDS - COCAINE NEGATIVE QUAL (NEGATIVE); UDS - OPIATE POSITIVE QUAL (NEGATIVE); UDS - PCP NEGATIVE QUAL (NEGATIVE); UDS - THC NEGATIVE QUAL (NEGATIVE); WHITE CELLS - URINE 0-5 /hpf (0-5)
[2018-04-12 11:44] LABS: HYALINE CAST 0-5 /lpf (NONE SEEN); MUCUS <1+ /lpf (NONE SEEN)
[2018-04-12 13:00] VITALS: BP 104/42
[2018-04-12 14:44] VITALS: BP 107/39
[2018-04-12] MEDS ORDERED: BENICAR20 MG PO (16:17)
[2018-04-12 16:35] VITALS: BP 119/61
[2018-04-12 17:35] VITALS: BP 119/61; Ht 165.1 cm; Wt 100.9 kg
[2018-04-12 20:52] VITALS: BP 136/97
[2018-04-13] VITALS: BP 136/68
[2018-04-13 04:00] VITALS: BP 137/61
[2018-04-13 06:50] LABS: BASOPHILS 0.1 % (0-2); EOSINOPHILS 0.1 % (0-7); HEMATOCRIT 36.4 % (42.0-54.0); HEMOGLOBIN 11.9 g/dL (13.5-17.5); IMMATURE GRANULOCYTES 0.2 % (0-5); LYMPHOCYTES 11.2 % (15-50); MCH 32.2 pg (26.0-34.0); MCHC 32.7 g/dL (31.0-37.0); MCV 98.6 fL (80.0-100.0); MEAN PLATELET VOLUME 10.2 fL (7.4-10.4); MONOCYTES 1.5 % (2-11); NEUTROPHILS 86.9 % (40-80); PLATELET COUNT 202 10x3/uL (130-400); RBC 3.69 10x6/uL (4.20-6.10); RDW 13.6 % (11.5-14.5); WBC 10.6 10x3/uL (4.8-10.8)
[2018-04-13 07:18] LABS: ANION GAP 12.2 mmol/L (8-16); CALCIUM 8.5 mg/dL (8.5-10.1); CARBON DIOXIDE 24.1 mmol/L (21.0-32.0); CREATININE - SERUM 1.3 mg/dL (0.6-1.3); MAGNESIUM - SERUM 1.9 mg/dL (1.8-2.4); PHOSPHOROUS 4.1 mg/dL (2.5-4.9); POTASSIUM - SERUM 4.3 mmol/L (3.5-5.1); THYROID STIMULATING HORMONE 0.55 uIU/mL (0.36-3.74)
[2018-04-13 08:06] VITALS: BP 146/73
[2018-04-13] MEDS ORDERED: IPRAT-ALBUT 0.5-3 ML UPD (08:50)
[2018-04-13] MEDS ORDERED: MEDROL DOSE PACK4 MG PO (08:51)
[2018-04-13 11:40] VITALS: BP 136/55
== END 2018-04-13 13:44 | disposition home or self-care (01) ==
LOC: D.ER 09:14 → D.EDHOLD 13:54 → OBSVTIME 13:54 → D.M2 15:02
PROVIDERS: Family Medicine
DX: J44.1 Chronic obstructive pulmonary disease with (acute) exacerbation (principal); N17.9 Acute kidney failure, unspecified; I10 Essential (primary) hypertension; E78.5 Hyperlipidemia, unspecified; G47.33 Obstructive sleep apnea (adult) (pediatric); Z91.19 Patient's noncompliance with other medical treatment and regimen; D64.9 Anemia, unspecified; E55.9 Vitamin D deficiency, unspecified; F32.9 Major depressive disorder, single episode, unspecified; G89.29 Other chronic pain; K21.9 Gastro-esophageal reflux disease without esophagitis; C61 Malignant neoplasm of prostate; G47.00 Insomnia, unspecified; E66.01 Morbid (severe) obesity due to excess calories; Z68.37 Body mass index [BMI] 37.0-37.9, adult; I25.10 Atherosclerotic heart disease of native coronary artery without angina pectoris

== ENCOUNTER 2018-04-25 22:54 | Inpatient (IN) | payer MEDICARE ==
[~2018-04-25] VITALS: Ht 165.1 cm; Wt 99.8 kg
--- NOTE | ~2018-04-25 | MORECARE ---
CASE MANAGEMENT DISCHARGE SUMMARY PATIENT: MONO MENSAH UNIT: [id number] ADM DATE: 04/26/18 AGE: 73 : 47 SEX: M ROOM/BED: D.2218 AUTHOR: JOSEPH RÍOS PHYSICIAN: REFERRING PHYSICIAN: NADER SHORT MD DATE OF SERVICE: 04/28/18 Discharge Plan Patient Name: MONO MENSAH Facility: [facility]:[place] : 1945 Planned Disposition: Home or Self Care Anticipated Discharge Date: Discharge Date: Expected LOS: Initial Reviewer: [email or web address] Initial Review Date: 04/26/2018 Generated: 04/28/18 2:04 pm Comments DCP- Discharge Planning Updated by [email or web address]: Valeri Coyle on 04/28/18 12:[address] Patient Name: MONO MENSAH Admission Status: ER Accout number: [id number] Admission Date: 04-26-2018 : 1945 Admission Diagnosis: Attending: NADER SHORT Current LOS: 2 Anticipated DC Date: Planned Disposition: Home or Self Care Primary Insurance: MEDICARE A & B Discharge Planning Comments: CM met with patient and to assess discharge planning needs. Patient is independent with his care at home. He has a cane (that he does not use) home o2, portable o2 ([facility]) and nebulizer at home. He does not want home health. He said his home is safe to return. IMM served and explained. Renea with [facility] will set up home vent tonight and patient should dc tomorrow. CM will continue to follow and assist with DC planning as needed It Consulting Manager: Valeri Coyle DCP- Discharge Planning Updated by [email or web address]: Valeri Coyle on 04/28/18 9:[address] SPOKE WITH [facility] THEY STATED THAT THEY HAVE NOT RECEIVED A ORDER FOR ANYTHING BUT HOME O2, SENT CLINICAL INFORMATION TO [facility] FOR HOME VENT. CM WILL CONTINUE TO FOLLOW AND ASSIST WITH DC PLANNING DCPIA - Discharge Planning Initial Assessment Updated by [email or web address]: Valeri Coyle on 04/28/18 12:58 pm * Is the patient Alert and Oriented? Yes * How many steps to enter\exit or inside your home? * PCP [place] * Pharmacy [facility] * Preadmission Environment Home with Family * ADLs Independent * Equipment Cane Nebulizer Oxygen * List name and contact numbers for known caregivers / representatives who currently or will assist patient after discharge: SAMUEL [phone] * Additional services required to return to the preadmission environment? Yes * Can the patient safely return to the preadmission environment? Yes * Has this patient been hospitalized within the prior 30 days at any hospital? No Coverage Notice Reviewer: [email or web address] Deion Coyle Notice Issued Date-Time: 04/28/2018 12:25 Notice Type: IM Discharge Notice Notice Delivered To: Patient Relationship to Patient: Holiday Detector Operator Name: Delivery Method: HAND - Hand Delivered Vero Days: Prior Verbal Notification: Recipient Understood Notice: Yes Recipient Signature: Yes Med Rec Note Co-signed by Attending: Coverage Notice Comment: Last DP export: 04/28/18 11:55 Patient Name: MONO MENSAH Page 61534 at 1304 All edits/amendments must be made on the electronic document DICTATION DATE: 04/28/18 1304 RN HOME CARE: PAOLO 04/28/18 1304 RPT#: [id number] DC DATE: STATUS: ADM IN [facility] [address] [place] [address] END OF REPORT
--- NOTE | ~2018-04-25 | HP ---
PATIENT: MONO MENSAH MEDICAL RECORD: [id number] ACCOUNT: [id number] LOCATION:D.MS [id number] : [birth year] ADMISSION DATE: 04/26/18 PCP: NADER SHORT HISTORY AND PHYSICAL EXAMINATION REASON FOR ADMISSION: Confusion and shortness of breath. HISTORY OF PRESENT ILLNESS: The patient is a 73-year-old male well known to this hospital with history of COPD, obstructive sleep apnea for which he is not using CPAP due to noncompliance. The patient was hospitalized on April 12 for similar presentation. He was seen by pulmonary and treated with neb treatments, IV steroids, BiPAP. His said he was not on antibiotics. He has been home for a couple of weeks, been doing pretty well until he awakened, confused from a nap last evening. He was more short of breath, was brought to the Emergency Room for that reason. He said he has had cough, was productive of some clear sputum and did spike a temperature to 100 degrees Fahrenheit last night. PAST MEDICAL HISTORY: O2 dependent COPD with hypercarbia; obstructive sleep apnea; essential hypertension; hyperlipidemia; psoriasis; prostate cancer, awaiting radiation therapy held at [facility]; sick sinus syndrome; coronary artery disease post PTCA, multiple; psoriatic arthritis; GERD. 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 FAMILY HISTORY: Positive for rheumatoid arthritis in mother and younger sister. SOCIAL HISTORY: He quit smoking about 8 years ago. Does not use illicit drugs. He is . HOME MEDICATIONS: Sulfasalazine 1500 mg p.o. b.i.d., Zofran 4 mg every 6 hours p.r.n. nausea, Benicar 20 mg daily, aspirin 81 mg daily, losartan 25 mg a day, clonidine 0.1 every 6 hours p.r.n. elevated blood pressure, ranitidine 300 mg a day, morphine ER 15 mg 1 every 12 hours, Baclofen 10 mg t.i.d., furosemide 20 mg q.a.m., DuoNeb updrafts 4 times daily, vitamin D 1000 units p.o. b.i.d., Protonix 40 mg daily, Plaquenil 200 mg p.o. daily, hydrocodone 7.5 daily as needed for pain. ALLERGIES: None known. REVIEW OF SYSTEMS: GENERAL: Chronically ill. No recent fever. HEENT: No recent visual change, sinus congestion, or sore throat. RESPIRATORY: Chronic shortness of breath, worse with cough productive of clear sputum for the last 8 hours. No hemoptysis. CARDIAC: No chest pain at rest or with exertion. No palpitations. GASTROINTESTINAL: No nausea or vomiting. GENITOURINARY: Has chronic trouble with nocturia and poor voiding stream and says lying down he required a catheter. He has prostate cancer, awaiting radiation therapy. ENDOCRINE: Denies polyuria, polydipsia, heat or cold intolerance. NEUROLOGIC: Denies seizures, memory loss, was confused this morning as he said. HISTORY AND PHYSICAL [id number] MONO MENSAH Also, known FLACA, which could exacerbate confusion. MUSCULOSKELETAL: Chronic arthralgias in multiple joints. Cervical and lumbar stiffness and he has chronic muscular twitching. INTEGUMENT: No rash or itching. PSYCHIATRIC: Denies depressed mood. PHYSICAL EXAMINATION: VITAL SIGNS: Show a temp of 98.1 degrees Fahrenheit it is as high of 100, O2 sat 95% on 2 liters, blood pressure 134/69, heart rate of 75, respirations of 19. GENERAL: The patient is awake, fairly oriented with poor historian. HEENT: His eyes are clear and nonicteric. Oropharynx is unremarkable. NECK: No bruits or masses, limited range of motion on forward flexion and side bending. CHEST: He has distant breath sounds without wheeze or rales. HEART: Regular without murmur. ABDOMEN: Obese, soft, nontender. EXTREMITIES: He has no peripheral edema. NEUROLOGICAL: The patient is oriented to person and place, but not time. Motor: He tends to have some rigidity in his upper extremities and intermittent twitching almost like a Anthony reflex in the upper extremities which his says is chronic. I did not stand the patient. LABORATORY [place]: [place] [address], H&H of 12.5 and 38.8. Chemistry: Sodium is 133, BUN and creatinine are 34 and 2.0, phosphorus 6.8. Liver functions are normal. TSH is normal. ABG: pH 7.276, CO2 of 56, pCO2 of 85 on 2 liters. Urine by Morales is clear. Chest x-ray, no infiltrate with COPD changes. ASSESSMENT: 1. Exacerbation of chronic obstructive pulmonary disease with leukocytosis and fever. 2. Prostate cancer. 3. Seronegative spondyloarthropathy. 4. Coronary artery disease, sick sinus syndrome, hypertension, psoriatic arthritis, hyponatremia. PLAN: The patient will be admitted and cultured, placed on updrafts, his home meds, IV Levaquin. Pulmonary consult if indicated. TRANSINT:[id number] Voice Confirmation ID: [id number] DOCUMENT ID: [id number] MATILDE DOTY MD at 0750 CC: [id number] DICTATION DATE: 04/26/18734 BREAKFAST HOSTESS: 04/26/18 1046 ADM IN [place] [id number] [place] [id number]
--- NOTE | ~2018-04-25 | MORECARE ---
CASE MANAGEMENT DISCHARGE SUMMARY PATIENT: MONO MENSAH UNIT: [id number] ADM DATE: 04/26/18 AGE: 73 : 47 SEX: M ROOM/BED: D.2218 AUTHOR: JOSEPH RÍOS PHYSICIAN: REFERRING PHYSICIAN: NADER SHORT MD DATE OF SERVICE: 04/28/18 Discharge Plan Patient Name: MONO MENSAH Facility: [facility]:[place] : 1945 Planned Disposition: Home or Self Care Anticipated Discharge Date: Discharge Date: Expected LOS: Initial Reviewer: [email or web address] Initial Review Date: 04/26/2018 Generated: 04/28/18 1:55 pm Comments DCP- Discharge Planning Updated by [email or web address]: Valeri Coyle on 04/28/18 9:[address] [facility] THEY STATED THAT THEY HAVE NOT RECEIVED A ORDER FOR ANYTHING BUT HOME O2, [facility] CM WILL CONTINUE TO FOLLOW AND ASSIST WITH DC PLANNING External Providers External [facility] Next Contact Date: Service Request Date: Service Type: Resolution: Reviewer: Comments: Patient Name: MONO MENSAH Page 34819 at 1256 All edits/amendments must be made on the electronic document DICTATION DATE: 04/28/18 1255 DELICATESSEN GOODS STOCK CLERK: PAOLO 04/28/18 1255 RPT#: [id number] DC DATE: STATUS: ADM IN [facility] [address] [place] [address] END OF REPORT
[~2018-04-25 22:54] MED LIST changes: +BENICAR20 MG PO; +IPRAT-ALBUT 0.5-3 ML UPD
[2018-04-25 23:16] VITALS: BP 126/67
[2018-04-25 23:27] LABS: BASOPHILS 0.1 % (0-2); EOSINOPHILS 1.5 % (0-7); HEMATOCRIT 38.8 % (42.0-54.0); HEMOGLOBIN 12.5 g/dL (13.5-17.5); IMMATURE GRANULOCYTES 1.3 % (0-5); LYMPHOCYTES 15.5 % (15-50); MCH 32.1 pg (26.0-34.0); MCHC 32.2 g/dL (31.0-37.0); MCV 99.7 fL (80.0-100.0); MEAN PLATELET VOLUME 10.2 fL (7.4-10.4); MONOCYTES 9.6 % (2-11); PLATELET COUNT 186 10x3/uL (130-400); RBC 3.89 10x6/uL (4.20-6.10); RDW 13.9 % (11.5-14.5); WBC 18.8 10x3/uL (4.8-10.8)
[2018-04-25 23:41] LABS: ALBUMIN 3.6 g/dL (3.4-5.0); ANION GAP 14.3 mmol/L (8-16); BILIRUBIN - TOTAL 0.34 mg/dL (0.2-1.3); CALCIUM 8.9 mg/dL (8.5-10.1); CARBON DIOXIDE 26.4 mmol/L (21.0-32.0); POTASSIUM - SERUM 4.7 mmol/L (3.5-5.1)
[2018-04-25 23:50] LABS: MAGNESIUM - SERUM 1.9 mg/dL (1.8-2.4); PHOSPHOROUS 6.8 mg/dL (2.5-4.9); THYROID STIMULATING HORMONE 2.5 uIU/mL (0.36-3.74)
[2018-04-26] VITALS (7 sets, daily range): BP systolic 116–153; BP diastolic 55–73; BMI 36.6
[2018-04-26 00:25] LABS: APPEARANCE CLEAR (CLEAR); COLOR YELLOW (YELLOW); GLUCOSE NEGATIVE (NEGATIVE); KETONE NEGATIVE (NEGATIVE); NITRITE NEGATIVE (NEGATIVE); PROTEIN NEGATIVE (NEGATIVE); UROBILINOGEN NORMAL (NORMAL)
[2018-04-26 00:26] LABS: BILIRUBIN NEGATIVE (NEGATIVE)
[2018-04-26] MEDS ORDERED: ASPIRIN81 MG PO (01:50)
[2018-04-26] MEDS ORDERED: IPRAT-ALBUT 0.5-3 ML UPD (01:52)
[2018-04-26] MEDS ORDERED: GARLIC PO (01:58)
[2018-04-26] MEDS ORDERED: FISH OIL 1,0001 CA1 PO (01:59)
[2018-04-27 04:23] LABS: BASOPHILS 0 % (0-2); EOSINOPHILS 0 % (0-7); HEMATOCRIT 35.5 % (42.0-54.0); HEMOGLOBIN 11.7 g/dL (13.5-17.5); IMMATURE GRANULOCYTES 0.5 % (0-5); LYMPHOCYTES 3.8 % (15-50); MCH 32.7 pg (26.0-34.0); MCV 99.2 fL (80.0-100.0); MEAN PLATELET VOLUME 10.3 fL (7.4-10.4); MONOCYTES 3.2 % (2-11); NEUTROPHILS 92.5 % (40-80); PLATELET COUNT 170 10x3/uL (130-400); RBC 3.58 10x6/uL (4.20-6.10); RDW 13.9 % (11.5-14.5)
[2018-04-27 04:45] LABS: CALCIUM 8.7 mg/dL (8.5-10.1); CARBON DIOXIDE 27.9 mmol/L (21.0-32.0); MAGNESIUM - SERUM 2.3 mg/dL (1.8-2.4); POTASSIUM - SERUM 4.9 mmol/L (3.5-5.1)
[2018-04-27 04:49] LABS: CREATININE - SERUM 1.2 mg/dL (0.6-1.3); PHOSPHOROUS 2.5 mg/dL (2.5-4.9)
[2018-04-27 08:24] VITALS: BP 149/69
[2018-04-27 11:56] VITALS: BP 126/50
[2018-04-27 12:31] VITALS: Ht 165.1 cm; Wt 99.8 kg
[2018-04-27 15:57] VITALS: BP 132/60
[2018-04-27 20:00] VITALS: BP 134/68
[2018-04-28] VITALS (7 sets, daily range): BP systolic 167–200; BP diastolic 72–104
[2018-04-29 04:50] VITALS: BP 207/87
[2018-04-29 09:21] LABS: SPE - A/G RATIO 1.2 (0.7-1.7); SPE - ALBUMIN 3.4 g/dL (2.9-4.4); SPE - ALPHA-1 GLOBULIN 0.4 g/dL (0.0-0.4); SPE - ALPHA-2 GLOBULIN 0.7 g/dL (0.4-1.0); SPE - BETA GLOBULIN 1.1 g/dL (0.7-1.3); SPE - GAMMA GLOBULIN 0.8 g/dL (0.4-1.8); SPE - M-SPIKE Not Observed g/dL (Not Observed); SPE - TOTAL PROTEIN 6.3 g/dL (6.0-8.5)
[2018-04-29 09:38] VITALS: BP 205/91
[2018-04-29 13:03] VITALS: BP 156/102
[2018-04-29] MEDS ORDERED: CASODEX50 MG PO (17:09)
[2018-04-29] MEDS ORDERED: CATAPRES0.1 MG PO (17:10)
[2018-04-29] MEDS ORDERED: PULMICORT0.5 MG/21 UPD (17:12)
[2018-04-29] MEDS ORDERED: CARDIZEM CD240 MG PO (17:13)
[2018-04-29 17:15] VITALS: BP 167/101
[2018-04-29] MEDS ORDERED: LEVAQUIN750 MG PO (17:15)
[2018-04-29] MEDS ORDERED: MEDROL DOSE PACK4 MG PO (17:22)
[2018-05-01 03:10] LABS: IMMUNOGLOBULIN E 16 IU/mL (0-100)
== END 2018-04-29 18:49 | disposition home or self-care (01) | DRG 189 ==
LOC: D.ER 22:54 → D.MS 04-26 00:22
PROVIDERS: Emergency Medicine; Internal Medicine Pulmonary Disease
DX: J96.22 Acute and chronic respiratory failure with hypercapnia (principal); J44.1 Chronic obstructive pulmonary disease with (acute) exacerbation; J44.0 Chronic obstructive pulmonary disease with (acute) lower respiratory infection; I13.0 Hypertensive heart and chronic kidney disease with heart failure and stage 1 through stage 4 chronic kidney disease, or unspecified chronic kidney disease; I50.32 Chronic diastolic (congestive) heart failure; J96.21 Acute and chronic respiratory failure with hypoxia; J20.9 Acute bronchitis, unspecified; G47.33 Obstructive sleep apnea (adult) (pediatric); Z91.19 Patient's noncompliance with other medical treatment and regimen; N18.9 Chronic kidney disease, unspecified; E78.5 Hyperlipidemia, unspecified; I25.10 Atherosclerotic heart disease of native coronary artery without angina pectoris; K21.9 Gastro-esophageal reflux disease without esophagitis; C61 Malignant neoplasm of prostate; M12.88 Other specific arthropathies, not elsewhere classified, other specified site; E55.9 Vitamin D deficiency, unspecified; D64.9 Anemia, unspecified; J32.9 Chronic sinusitis, unspecified; L40.50 Arthropathic psoriasis, unspecified; E66.01 Morbid (severe) obesity due to excess calories; R41.0 Disorientation, unspecified; Z87.891 Personal history of nicotine dependence; Z68.36 Body mass index [BMI] 36.0-36.9, adult

== ENCOUNTER 2018-04-30 15:04 | Emergency (ER) | payer MEDICARE ==
[~2018-04-30] VITALS: Ht 165.1 cm; Wt 99.8 kg
[~2018-04-30 15:04] MED LIST changes: +ASPIRIN81 MG PO; +CARDIZEM CD240 MG PO; +CASODEX50 MG PO; +FISH OIL 1,0001 CA1 PO; +GARLIC PO; +LEVAQUIN750 MG PO; +PULMICORT0.5 MG/21 UPD
[2018-04-30 15:12] VITALS: BP 116/75; Ht 165.1 cm; Wt 99.8 kg
== END 2018-04-30 15:53 | disposition left against medical advice (07) ==
LOC: D.ER 15:04
DX: R06.89 Other abnormalities of breathing (principal); J44.1 Chronic obstructive pulmonary disease with (acute) exacerbation; I12.9 Hypertensive chronic kidney disease with stage 1 through stage 4 chronic kidney disease, or unspecified chronic kidney disease; N18.9 Chronic kidney disease, unspecified; N40.0 Benign prostatic hyperplasia without lower urinary tract symptoms; R33.9 Retention of urine, unspecified; R41.82 Altered mental status, unspecified

== ENCOUNTER 2018-05-07 21:48 | Inpatient (IN) | payer MEDICARE ==
[~2018-05-07] VITALS: Ht 165.1 cm; Wt 98.0 kg
[2018-05-07 22:37] LABS: BASOPHILS 0.2 % (0-2); EOSINOPHILS 1.4 % (0-7); HEMATOCRIT 39.6 % (42.0-54.0); IMMATURE GRANULOCYTES 0.6 % (0-5); LYMPHOCYTES 6.7 % (15-50); MCH 32.4 pg (26.0-34.0); MCHC 32.8 g/dL (31.0-37.0); MCV 98.8 fL (80.0-100.0); MEAN PLATELET VOLUME 10.2 fL (7.4-10.4); NEUTROPHILS 84.1 % (40-80); PLATELET COUNT 201 10x3/uL (130-400); RBC 4.01 10x6/uL (4.20-6.10); RDW 13.6 % (11.5-14.5); WBC 19.5 10x3/uL (4.8-10.8)
[2018-05-07 22:51] LABS: ALBUMIN 3.5 g/dL (3.4-5.0); ALKALINE PHOSPHATASE 68 U/L (46-116); ALT (SGPT) 34 U/L (10-68); BILIRUBIN - TOTAL 0.39 mg/dL (0.2-1.3); CALC OSMOLALITY 283 mosm/kg (275-300); CALCIUM 9.4 mg/dL (8.5-10.1); CHLORIDE - SERUM 101 mmol/L (98-107); CREATININE - SERUM 2.5 mg/dL (0.6-1.3); POTASSIUM - SERUM 4.7 mmol/L (3.5-5.1); PROTEIN - SERUM 7.1 g/dL (6.4-8.2); SODIUM 136 mmol/L (136-145); UREA NITROGEN 46 mg/dL (7-18); eGFR NON AFRICAN AMERICAN 27 mL/min (90-120)
[2018-05-07 22:55] LABS: GLUCOSE 90 mg/dL (74-106)
[2018-05-07 23:02] LABS: MAGNESIUM - SERUM 1.6 mg/dL (1.8-2.4); TROPONIN-I < 0.017 ng/mL (0.000-0.060)
[2018-05-07 23:12] LABS: CREATINE KINASE 869 UL (21-232)
[2018-05-07 23:20] VITALS: BP 115/54
[2018-05-07 23:21] LABS: APPEARANCE CLEAR (CLEAR); BILIRUBIN NEGATIVE (NEGATIVE); COLOR YELLOW (YELLOW); GLUCOSE NEGATIVE (NEGATIVE); KETONE NEGATIVE (NEGATIVE); NITRITE NEGATIVE (NEGATIVE); PROTEIN NEGATIVE (NEGATIVE); SPECIFIC GRAVITY 1.015 (1.005-1.020); UROBILINOGEN NORMAL (NORMAL)
[2018-05-07 23:44] VITALS: BP 107/47
[2018-05-08] VITALS (27 sets, daily range): BP systolic 84–140; BP diastolic 43–87; Ht 165.1 cm; Wt 98.0 kg
--- NOTE | 2018-05-08 18:37 | MORECARE ---
CASE MANAGEMENT DISCHARGE SUMMARY PATIENT: MONO MENSAH UNIT: [id number] ADM DATE: 05/07/18 AGE: 73 : 47 SEX: M ROOM/BED: D.2304 AUTHOR: JOSEPH RÍOS PHYSICIAN: REFERRING PHYSICIAN: NADER SHORT MD DATE OF SERVICE: 05/08/18 Discharge Plan Patient Name: MONO MENSAH [facility] [facility] 1945 Planned Disposition: Home Anticipated Discharge Date: Discharge Date: Expected LOS: Initial Reviewer: [email or web address] Initial Review Date: 05/08/2018 Generated: 05/08/18 7:37 pm DCPIA - Discharge Planning Initial Assessment Updated by [email or web address]: Judy Lares on 05/08/18 6:33 pm * Is the patient Alert and Oriented? Yes * How many steps to enter\exit or inside your home? * PCP HAN * Pharmacy [facility] * Preadmission Environment Home with Family * ADLs Independent * Equipment Enteral Feeding and Supplies * Other Equipment CPAP, HOME / PORTABLE 02, CANE, SHOWER CHAIR * List name and contact numbers for known caregivers / representatives who currently or will assist patient after discharge: JULIÁN FLYNN DAUGHTER [phone] * Verbal permission to speak to the caregivers and representatives has been obtained from the patient. Yes * Community resources currently utilized None * Additional services required to return to the preadmission environment? No * Can the patient safely return to the preadmission environment? Yes * Has this patient been hospitalized within the prior 30 days at any hospital? Yes Patient Name: MONO MENSHA Page 08998 at 1837 All edits/amendments must be made on the electronic document DICTATION DATE: 05/08/181835 CASH SPECIALIST: PAOLO 05/08/181835 RPT#: [id number] DC DATE: STATUS: ADM IN [facility] [address] [place] [address] END OF REPORT
--- NOTE | 2018-05-08 18:44 | MORECARE ---
CASE MANAGEMENT DISCHARGE SUMMARY PATIENT: MONO MENSAH UNIT: [id number] ADM DATE: 05/07/18 AGE: 73 : 47 SEX: M ROOM/BED: D.2304 AUTHOR: KHUSHBU,DOC PHYSICIAN: REFERRING PHYSICIAN: NADER SHORT MD DATE OF SERVICE: 05/08/18 Discharge Plan Patient Name: MONO MENSAH Facility: [facility]:[place] : 1945 Planned Disposition: Home Anticipated Discharge Date: Discharge Date: Expected LOS: Initial Reviewer: [email or web address] Initial Review Date: 05/08/2018 Generated: 05/08/18 7:44 pm Comments DCP- Discharge Planning Updated by [email or web address]: Judy Lares on 05/08/18 5:[address] Patient Name: MONO MENSAH Admission Status: ER Accout number: [id number] Admission Date: 05-07-2018 : 1945 Admission Diagnosis: Attending: NADER SHORT Current LOS: 1 Anticipated DC Date: Planned Disposition: Home Primary Insurance: MEDICARE A & B Discharge Planning Comments: CM met with patient and spouse at bedside. Patient states that he plans to return home after discharge. Patient denies any discharge needs at this time. CM will continue to follow and assist with discharge planning / needs. Newscast Producer: Judy Lares DCPIA - Discharge Planning Initial Assessment Updated by [email or web address]: Judy Lares on 05/08/18 6:33 pm * Is the patient Alert and Oriented? Yes * How many steps to enter\exit or inside your home? * PCP HAN * Pharmacy [facility] * Preadmission Environment Home with Family * ADLs Independent * Equipment Enteral Feeding and Supplies * Other Equipment CPAP, HOME / PORTABLE 02, CANE, SHOWER CHAIR * List name and contact numbers for known caregivers / representatives who currently or will assist patient after discharge: JULIÁN FLYNN DAUGHTER [phone] * Verbal permission to speak to the caregivers and representatives has been obtained from the patient. Yes * Community resources currently utilized None * Additional services required to return to the preadmission environment? No * Can the patient safely return to the preadmission environment? Yes * Has this patient been hospitalized within the prior 30 days at any hospital? Yes Last DP export: 05/08/18 5:37 Patient Name: MONO MENSAH Page 58682 at 1844 All edits/amendments must be made on the electronic document DICTATION DATE: 05/08/181842 NAILER HAND: PAOLO 05/08/181842 RPT#: [id number] DC DATE: STATUS: ADM IN [facility] [address] [place] [address] END OF REPORT
[2018-05-09 00:04] VITALS: BP 108/58
[2018-05-09 05:06] VITALS: BP 93/57
[2018-05-09 08:21] VITALS: BP 142/65
--- NOTE | 2018-05-09 09:09 | HP ---
PATIENT: MONO MENSAH MEDICAL RECORD: [id number] ACCOUNT: [id number] LOCATION:[place] [address] : [birth year] ADMISSION DATE: 05/07/18 PCP: MATILDE DOTY MD HISTORY AND PHYSICAL EXAMINATION REASON FOR ADMISSION: Confusion. HISTORY OF PRESENT ILLNESS: The patient is a 73-year-old male with history of severe COPD, on BiPAP at home and prostate cancer. The said the patient had been doing his usual state until the day before admission. He seemed more fatigued and tired. On day of admission he awoke more alert, but after a nap just would not wake up. said he did not use his BiPAP as directed during the day. That reason he presented to the Emergency Room by EMS, he was hypotensive and confused, but arousable. His ammonia level was mildly elevated. Denied any recent fever, increasing cough. His said he has not been taking liquids as per usual. He had been admitted approximately 2 weeks ago with similar presentation in swqfy-se-xpmevwh renal insufficiency. He was seen by Dr. Garcia, medications were adjusted, he had been discharged home and BiPAP had been delivered. PAST MEDICAL HISTORY: COPD, prostate cancer, hypercarbia, FLACA, essential hypertension, hyperlipidemia, psoriasis, CAD post-PTCA, multiple psoriatic arthritis, GERD, sick sinus syndrome with pacemaker. PAST SURGICAL HISTORY: Cardiac pacemaker placement, carpal tunnel release, elbow release, cervical fusion, LEATHER STAKER with coronary stents, multiple history of hernia repair, history of rhabdomyolysis in 2018, spondyloarthritis, carpal tunnel release on the right, TURP. FAMILY HISTORY: Positive for RA in his mother and younger sister. SOCIAL HISTORY: He quit smoking about 8 years ago. Does not use illicit drugs. He is and lives at home with his . HOME MEDICATIONS: DuoNeb every 4 hours, aspirin 81 mg a day, baclofen 10 mg p.o. t.i.d., Casodex 50 mg daily, Pulmicort 0.5 mg per updraft b.i.d., vitamin D 1000 units p.o. b.i.d., Catapres 0.1 mg every 4 hours p.r.n. systolic blood pressure greater than 190 or diastolic greater than 110, Cardizem-CD 240 mg p.o. daily, fish oil 1000 mg p.o. b.i.d., Lasix 20 mg p.o. every morning, Neurontin 300 mg p.o. b.i.d., Happy 7.5/325 one p.o. b.i.d. p.r.n. back pain, Plaquenil 200 mg p.o. daily, MS Contin 15 mg p.o. every 12 hours, Benicar 40 mg daily, Zofran 4 mg every 4 hours p.r.n. nausea or vomiting, Protonix 40 mg p.o. daily, Zantac 150 mg p.o. at bedtime, Silvadene 1500 mg p.o. b.i.d., Effexor 75 mg p.o. b.i.d., garlic 1000 mg p.o. daily. REVIEW OF SYSTEMS: GENERAL: Chronically fatigued with inability to care for self. No recent fever. HEENT: No recent visual change, sinus congestion. He does have trouble hearing. RESPIRATORY: As above. He has chronic cough, not recently productive. He is chronically short of breath. He semi-compliant on BiPAP. CARDIAC: No palpitations, edema, or chest pain. GASTROINTESTINAL: No nausea, vomiting, change in stools or blood per rectum. GENITOURINARY: He has decreased urine output, chronically nocturia. Denies HISTORY AND PHYSICAL [id number] MONO MENSAH dysuria or hematuria. MUSCULOSKELETAL: Has chronic arthralgia in lumbar spine. ENDOCRINE: Denies polyuria, polydipsia, heat or cold intolerance. NEUROLOGIC: Has chronic tremors and muscle spasms in his left side. Confusion as mentioned by his today. PHYSICAL EXAMINATION: VITAL SIGNS: Blood pressure was 87/49, pulse of 60, respirations of 20 and sat of 97% on 2 liters. Height is 5 feet 5 inches, weight 217 pounds, temperature 99. GENERAL: The patient is chronically ill-appearing, but no acute distress. He is responsive to questions and pretty much his normal baseline from what I have seen him previously. HEENT: Normocephalic. Eyes are clear. NECK: Supple. CHEST: He has bibasilar crackles with expiratory wheezing in the upper lobes. He is not tachypneic. HEART: Regular rate without gallop. ABDOMEN: Obese, soft, nontender. GENITOURINARY: Deferred. EXTREMITIES: A 2+ mild pedal and pretibial edema of the knees bilaterally. SKIN: No obvious skin lesions appreciated. NEUROLOGIC: The patient is oriented to person. He can relate his birthday, but he is not aware that Lyndsay is coming. He did mention the New Year. He has no obvious motor deficits. He has intermittent spasms in his left upper extremity. LABORATORY DATA: Blood gas pH 7.3, pCO2 41, pO2 72. Lactic acid 0.9 on 2 [place] [address], H&H of 13 and 39 respectively, 84 polys. Urinalysis is unremarkable. Chemistry: BUN and creatinine are 46 and 2.5, elevated from discharge creatinine of 1.5. Anion gap is 16, glucose 114. Uric acid is 8.5. Ammonia is 39, creatinine kinase 869. Troponin is less than 0.017. CRP is 3.2. ProBNP is 384. Cholesterol elevated at 238. IMAGING: Chest x-ray shows low lung volumes bilaterally, stable AICD, stable neural stimulator leads. Postsurgical changes of cervical fusion. No acute findings. ASSESSMENT: 1. Hypotension, etiology unknown. 2. Yqzjk-fv-kmbxhzf renal insufficiency. 3. Chronic obstructive pulmonary disease with hypercarbia, chronic. 4. Questionable compliance on BiPAP. 5. Coronary artery disease. 6. History of arrhythmia. 7. Leukocytosis, probably from steroids. PLAN: The patient has been cultured. He will be placed in ICU overnight due to his hypotension, give fluid challenges. Pulmonary consult. Further workup pending clinical course. TRANSINT:[id number] Voice Confirmation ID: [id number] DOCUMENT ID: [id number] HISTORY AND PHYSICAL [id number] MONO MENSAH TIMOTHY MD at 0909 CC: [id number] DICTATION DATE: 05/08/18808 SHED BOSS: 05/08/18 0935 ADM IN [place] [address] [place] [address]
[2018-05-09 12:55] VITALS: BP 162/63
[2018-05-09 16:18] VITALS: BP 153/58
[2018-05-09 20:00] VITALS: BP 169/74
[2018-05-10] VITALS: BP 134/64
[2018-05-10 04:00] VITALS: BP 154/65
[2018-05-10 07:25] VITALS: BP 181/72
[2018-05-10 07:49] LABS: BASOPHILS 0.1 % (0-2); EOSINOPHILS 0.1 % (0-7); HEMATOCRIT 36.6 % (42.0-54.0); HEMOGLOBIN 12.1 g/dL (13.5-17.5); IMMATURE GRANULOCYTES 0.4 % (0-5); LYMPHOCYTES 8.3 % (15-50); MCH 32.4 pg (26.0-34.0); MCHC 33.1 g/dL (31.0-37.0); MCV 97.9 fL (80.0-100.0); MEAN PLATELET VOLUME 10.9 fL (7.4-10.4); MONOCYTES 3.6 % (2-11); NEUTROPHILS 87.5 % (40-80); RBC 3.74 10x6/uL (4.20-6.10); RDW 13.9 % (11.5-14.5); WBC 10.2 10x3/uL (4.8-10.8)
[2018-05-10 07:51] LABS: PLATELET COUNT 155 10x3/uL (130-400)
[2018-05-10 07:58] LABS: ALBUMIN 2.6 g/dL (3.4-5.0); ALKALINE PHOSPHATASE 57 U/L (46-116); ALT (SGPT) 24 U/L (10-68); BILIRUBIN - DIRECT 0.02 mg/dL (0.00-0.30); BILIRUBIN - INDIRECT 0.19 mg/dL (0.00-1.00); BILIRUBIN - TOTAL 0.21 mg/dL (0.2-1.3); CALC OSMOLALITY 280 mosm/kg (275-300); CALCIUM 8.5 mg/dL (8.5-10.1); CARBON DIOXIDE 23.4 mmol/L (21.0-32.0); CHLORIDE - SERUM 105 mmol/L (98-107); CREATININE - SERUM 0.6 mg/dL (0.6-1.3); POTASSIUM - SERUM 4.7 mmol/L (3.5-5.1); PROTEIN - SERUM 6.6 g/dL (6.4-8.2); SODIUM 139 mmol/L (136-145); UREA NITROGEN 9 mg/dL (7-18); eGFR NON AFRICAN AMERICAN > 90 mL/min (90-120)
[2018-05-10 08:03] LABS: GLUCOSE 163 mg/dL (74-106)
[2018-05-10 11:32] VITALS: BP 172/80
[2018-05-10 15:23] VITALS: BP 170/76
[2018-05-10 18:00] VITALS: BP 162/79
[2018-05-11 00:30] VITALS: BP 184/82
[2018-05-11 04:00] VITALS: BP 143/70
[2018-05-11 08:47] VITALS: BP 181/84
[2018-05-11] MEDS ORDERED: OMNICEF300 MG PO (10:36)
[2018-05-11] MEDS ORDERED: VIBRAMYCIN 100100 MG PO (10:36)
[2018-05-11] MEDS ORDERED: NEURONTIN 300300 MG PO (10:37)
[2018-05-11 12:07] VITALS: BP 171/81
--- NOTE | 2018-05-13 10:27 | MORECARE ---
CASE MANAGEMENT DISCHARGE SUMMARY PATIENT: MONO MENSAH UNIT: [id number] ADM DATE: 05/07/18 AGE: 73 : 47 SEX: M ROOM/BED: D.1212 AUTHOR: KHUSHBUDOC PHYSICIAN: REFERRING PHYSICIAN: NADER SHORT MD DATE OF SERVICE: 05/13/18 Discharge Plan Patient Name: MONO MENSAH Facility: [facility]:[place] : 1945 Planned Disposition: Home Anticipated Discharge Date: 05/11/18 Discharge Date: 05/11/2018 Expected LOS: 4 Initial Reviewer: [email or web address] Initial Review Date: 05/08/2018 Generated: 05/13/18 11:27 am Comments DCP- Discharge Planning Updated by [email or web address]: Judy Lares on 05/08/18 5:[address] Patient Name: MONO MENSAH Admission Status: ER Accout number: [id number] Admission Date: 05-07-2018 : 1945 Admission Diagnosis: Attending: NADER SHORT Current LOS: 1 Anticipated DC Date: Planned Disposition: Home Primary Insurance: MEDICARE A & B Discharge Planning Comments: CM met with patient and spouse at bedside. Patient states that he plans to return home after discharge. Patient denies any discharge needs at this time. CM will continue to follow and assist with discharge planning / needs. [place] Operator: Judy Lares DCPIA - Discharge Planning Initial Assessment Updated by [email or web address]: Judy Lares on 05/08/18 6:33 pm * Is the patient Alert and Oriented? Yes * How many steps to enter\exit or inside your home? * PCP HAN * Pharmacy [facility] * Preadmission Environment Home with Family * ADLs Independent * Equipment Enteral Feeding and Supplies * Other Equipment CPAP, HOME / PORTABLE 02, CANE, SHOWER CHAIR * List name and contact numbers for known caregivers / representatives who currently or will assist patient after discharge: JULIÁN FLYNN DAUGHTER [phone] * Verbal permission to speak to the caregivers and representatives has been obtained from the patient. Yes * Community resources currently utilized None * Additional services required to return to the preadmission environment? No * Can the patient safely return to the preadmission environment? Yes * Has this patient been hospitalized within the prior 30 days at any hospital? Yes Last DP export: 05/08/18 5:44 Patient Name: MONO MENSAH Page 16037 at 1027 All edits/amendments must be made on the electronic document DICTATION DATE: 05/13/18 1026 HAND BRIM IRONER: PAOLO 05/13/18 1026 RPT#: [id number] DC DATE:05/11/18 STATUS: DIS IN [facility] [address] [place] [address] END OF REPORT
--- NOTE | 2018-05-19 11:50 | EC ---
PATIENT:MONO MENSAH DATE OF SERVICE: 05/07/18 SEX: M MEDICAL RECORD: [id number] DATE OF : [birth year] [facility] AGE OF PATIENT: 73 ADMISSION DATE: 05/07/18 REFERRING PHYSICIAN: INTERPRETING PHYSICIAN: WILLOW SCHULTZ MD ECHOCARDIOGRAM REPORT ECHO CHARGES 4 ECHO COMPLETE Date: 05/08/18 CLINICAL DIAGNOSIS: HTN/CAD ECHOCARDIOGRAPHIC MEASUREMENTS (adult normal given) AC root (d.<3.7cm) 3.4 cm LV Septum d (<1.2 cm> 1.3 cm Valve Excursion 2.5 cm LV Septum (systole) 2.3 cm Left Atria (s.<4.0cm> 3.9 cm LVPW d(<1.2cm) 1.4 cm RV (d.<2.3cm) 2.3 cm LVPW (sytole) 2.4 cm LV diastole(<5.6CM) 5.8 cm MV E-F(>70mm/sec) cm LV systole 2.6 cm LVOT Diameter 2.0 cm MV exc.(>10mm) cm Est.ejection fraction (50-75%) % DOPPLER: LVIT cm/sec A 92.0 cm/sec E 77.0 cm/sec LA cm/sec RVSP 31.0 mmHg LVOT 167 cm/sec AOP1/2T m/s Asc. Ao 211 cm/sec RVOT 93.0 cm/sec RA cm/sec PA 116 cm/sec AV Gradient Peak 18.0 mmHg AV Mean 8.8 mmHg AV Area 2.2 cm MV Gradient Peak 6.1 mmHg MV Mean 2.1 mmHg MV Area cm COMMENTS: Circle Saw Operator: 1 VIVIANE WAGNEROE Supervisor Gas Meter Repair: 3 Dr. Corbett TAPE# PACS Pericardial Effusion N DATE OF SERVICE: Adequate 2-D echo, color flow and spectral Doppler, and M-mode. Mild LVH. LV internal dimension is normal. Wall motion is normal. EF is greater than or equal to 55%. Aortic valve sclerosis without stenosis by Doppler interrogation. Left atrium is normal at 3.9 cm. Mitral valve shows no prolapse. Trace MR. Right-sided chamber is normal. Trace TR. TRANSINT:[id number] Voice Confirmation ID: [id number] DOCUMENT ID: [id number] ECHOCARDIOGRAM REPORT [id number] MONO MENSAH GREGORY A MD at 1150 CC: [id number] DICTATION DATE: 05/08/18 1225 RESORT HOUSEKEEPER: 05/08/18 1514 DIS IN 05/11/18 [place] [id number] [place] [id number]
== END 2018-05-11 16:36 | disposition home or self-care (01) | DRG 177 ==
LOC: D.ER 21:48 → D.EDHOLD 22:56 → D.ICU 22:56 → D.M2 22:56 → D.ICU 05-08 00:30 → D.M3 05-08 21:50
PROVIDERS: Emergency Medicine; Family Medicine; ADMIT Family Medicine
PROC: 5A09457 Assistance with Respiratory Ventilation, 24-96 Consecutive Hours, Continuous Positive Airway Pressure (ICD-10-PCS; principal; 2018-05-09)
DX: J69.0 Pneumonitis due to inhalation of food and vomit (principal); J96.22 Acute and chronic respiratory failure with hypercapnia; J96.21 Acute and chronic respiratory failure with hypoxia; J44.1 Chronic obstructive pulmonary disease with (acute) exacerbation; N17.9 Acute kidney failure, unspecified; J44.0 Chronic obstructive pulmonary disease with (acute) lower respiratory infection; R41.0 Disorientation, unspecified; I95.9 Hypotension, unspecified; K21.9 Gastro-esophageal reflux disease without esophagitis; I12.9 Hypertensive chronic kidney disease with stage 1 through stage 4 chronic kidney disease, or unspecified chronic kidney disease; N18.9 Chronic kidney disease, unspecified; E66.01 Morbid (severe) obesity due to excess calories; Z68.35 Body mass index [BMI] 35.0-35.9, adult; J20.9 Acute bronchitis, unspecified; D64.9 Anemia, unspecified; E78.5 Hyperlipidemia, unspecified; E55.9 Vitamin D deficiency, unspecified; Z87.891 Personal history of nicotine dependence

== ENCOUNTER → 2018-10-21 12:26 | Outpatient (CLI) | payer MEDICARE ==
[2018-05-08 09:36] VITALS: BMI 35.9
[~2018-10-21 12:26] MED LIST changes: +OMNICEF300 MG PO; +VIBRAMYCIN 100100 MG PO
== END | disposition home or self-care (01) ==
LOC: D.RT 12:26
PROVIDERS: ATTEND Internal Medicine Pulmonary Disease
DX: J44.9 Chronic obstructive pulmonary disease, unspecified (principal)

== ENCOUNTER 2018-10-27 09:54 | Outpatient (CLI) | payer MEDICARE ==
[~2018-10-27] VITALS: Ht 165.1 cm; Wt 99.5 kg
[2018-10-27 10:55] VITALS: BP 128/65; Ht 165.1 cm; Wt 99.5 kg
[2018-10-27 13:37] LABS: CALC OSMOLALITY 291 mosm/kg (275-300); CALCIUM 8.8 mg/dL (8.5-10.1); CARBON DIOXIDE 26.2 mmol/L (21.0-32.0); CHLORIDE - SERUM 108 mmol/L (98-107); CREATININE - SERUM 0.9 mg/dL (0.6-1.3); POTASSIUM - SERUM 4.3 mmol/L (3.5-5.1); SODIUM 143 mmol/L (136-145); UREA NITROGEN 32 mg/dL (7-18); eGFR NON AFRICAN AMERICAN 88 mL/min (90-120)
[2018-10-27 13:38] LABS: GLUCOSE 98 mg/dL (74-106)
== END 2018-10-27 13:53 | disposition home or self-care (01) ==
LOC: D.OPS 09:54
PROVIDERS: ATTEND Family Medicine
DX: N17.9 Acute kidney failure, unspecified (principal); E86.0 Dehydration

== ENCOUNTER 2018-11-18 12:56 | Outpatient (CLI) | payer MEDICARE ==
[~2018-11-18] VITALS: Ht 165.1 cm; Wt 99.5 kg
[2018-11-18 13:30] VITALS: Ht 165.1 cm; Wt 99.5 kg
--- NOTE | 2018-11-18 14:00 | NUR ---
NS INFUSION INITIATED VIA RIGHT HAND. BOLUS TO INFUSE OVER ONE HOUR.
--- NOTE | 2018-11-18 15:07 | NUR ---
1500 INFUSION COMPLETED, COLA REQUESTED AND SERVED LAB NOTIFIED OF BMP REQUEST.
[2018-11-18 15:33] LABS: ANION GAP 12.3 mmol/L (8-16); CALCIUM 8.9 mg/dL (8.5-10.1); CARBON DIOXIDE 26.5 mmol/L (21.0-32.0); CREATININE - SERUM 1.2 mg/dL (0.6-1.3); POTASSIUM - SERUM 3.8 mmol/L (3.5-5.1)
--- NOTE | 2018-11-18 15:53 | NUR ---
[address] CULLEN' OFFICE. 1550 IV DC'D WITH CATH INTACT SHOES ON RELEASED IN WC GUEST HOUSE MANAGER HOME.
--- NOTE | 2018-11-18 16:00 | NUR ---
1555 DC INSTS GIVEN RELEASED IN WC DIAGNOSTIC SALES SPECIALIST HOME.
== END 2018-11-18 15:55 | disposition home or self-care (01) ==
LOC: D.OPS 12:56
PROVIDERS: ATTEND Family Medicine
DX: N17.9 Acute kidney failure, unspecified (principal); R33.9 Retention of urine, unspecified

== ENCOUNTER → 2018-12-22 13:35 | Outpatient (CLI) | payer MEDICARE ==
[2018-11-18 13:30] VITALS: BMI 36.5
== END | disposition home or self-care (01) ==
LOC: D.CT 13:35
PROVIDERS: ATTEND Clinical Nurse Specialist Family Health
DX: M25.551 Pain in right hip (principal)

== ENCOUNTER 2019-01-06 17:33 | Observation (INO) | payer MEDICARE ==
[~2019-01-06] VITALS: Ht 165.1 cm; Wt 99.8 kg
[2019-01-06 19:38] LABS: BASOPHILS 0.3 % (0-2); EOSINOPHILS 2.6 % (0-7); HEMATOCRIT 32.4 % (42.0-54.0); HEMOGLOBIN 10.8 g/dL (13.5-17.5); IMMATURE GRANULOCYTES 0.4 % (0-5); LYMPHOCYTES 13.5 % (15-50); MCHC 33.3 g/dL (31.0-37.0); MCV 95.9 fL (80.0-100.0); MEAN PLATELET VOLUME 9.4 fL (7.4-10.4); MONOCYTES 10.4 % (2-11); NEUTROPHILS 72.8 % (40-80); PLATELET COUNT 176 10x3/uL (130-400); RBC 3.38 10x6/uL (4.20-6.10); RDW 13.3 % (11.5-14.5); WBC 11.2 10x3/uL (4.8-10.8)
[2019-01-06 20:05] LABS: ALBUMIN 3.5 g/dL (3.4-5.0); ANION GAP 13.9 mmol/L (8-16); BILIRUBIN - TOTAL 0.28 mg/dL (0.2-1.3); CALCIUM 8.8 mg/dL (8.5-10.1); CARBON DIOXIDE 25.3 mmol/L (21.0-32.0); CREATININE - SERUM 2.2 mg/dL (0.6-1.3); POTASSIUM - SERUM 4.2 mmol/L (3.5-5.1); PROTEIN - SERUM 6.5 g/dL (6.4-8.2)
[2019-01-06 22:39] VITALS: BP 144/88
[2019-01-06] MEDS ORDERED: AZULFIDINE500 MG PO (23:15)
[2019-01-06 23:31] VITALS: BP 123/95; Ht 165.1 cm; Wt 99.8 kg
[2019-01-07 05:36] VITALS: BP 124/84
[2019-01-07 06:42] LABS: BASOPHILS 0.2 % (0-2); EOSINOPHILS 4.6 % (0-7); HEMATOCRIT 37.1 % (42.0-54.0); HEMOGLOBIN 12.1 g/dL (13.5-17.5); IMMATURE GRANULOCYTES 0.7 % (0-5); MCH 31.7 pg (26.0-34.0); MCHC 32.6 g/dL (31.0-37.0); MCV 97.1 fL (80.0-100.0); MEAN PLATELET VOLUME 9.7 fL (7.4-10.4); MONOCYTES 10.3 % (2-11); NEUTROPHILS 68.2 % (40-80); PLATELET COUNT 174 10x3/uL (130-400); RBC 3.82 10x6/uL (4.20-6.10); RDW 13.6 % (11.5-14.5); WBC 8.5 10x3/uL (4.8-10.8)
[2019-01-07 06:46] LABS: ALBUMIN 3.7 g/dL (3.4-5.0); ANION GAP 11.9 mmol/L (8-16); BILIRUBIN - TOTAL 0.31 mg/dL (0.2-1.3); CALCIUM 9.2 mg/dL (8.5-10.1); CARBON DIOXIDE 26.1 mmol/L (21.0-32.0)
[2019-01-07 06:47] LABS: CREATININE - SERUM 1.3 mg/dL (0.6-1.3)
[2019-01-07 09:01] VITALS: BP 106/61
--- NOTE | 2019-01-07 09:54 | MORECARE ---
CASE MANAGEMENT DISCHARGE SUMMARY PATIENT: MONO MENSAH UNIT: [id number] ADM DATE: 01/06/19 AGE: 73 : 47 SEX: M ROOM/BED: D.2230 AUTHOR: JOSEPH RÍOS PHYSICIAN: REFERRING PHYSICIAN: CHUYITA ROSALES MD DATE OF SERVICE: 01/07/19 Discharge Plan Patient Name: MONO MENSAH Facility: [facility]:[place] : 1945 Planned Disposition: Home Anticipated Discharge Date: 01/07/19 Discharge Date: Expected LOS: 1 Initial Reviewer: [email or web address] Initial Review Date: 01/06/2019 Generated: 01/07/19 10:53 am Comments DCP- Discharge Planning Updated by [email or web address]: Laila Rock on 01/07/19 8:[address] Patient Name: MONO MENSAH Admission Status: Elective Accout number: [id number] Admission Date: 01-06-2019 : 1945 Admission Diagnosis: Attending: CHUYITA ROSALES Current LOS: 1 Anticipated DC Date: 01-07-2019 Planned Disposition: Home Primary Insurance: MEDICARE A & B Discharge Planning Comments: CM MET WITH PATIENT AND HIS ABOUT DC PLANNING/NEEDS. STATES PLANS TO DC TO HOME AND DENIES NEEDS. CM TO FOLLOW. Music Assistant: Laila Rock Patient Name: MONO MENSAH Page 93414 at 0954 All edits/amendments must be made on the electronic document DICTATION DATE: 01/07/1953 MARINE EQUIPMENT TEST ENGINEER: PAOLO 01/07/19 0953 RPT#: [id number] DC DATE: STATUS: ADM IN [facility] [address] [place] [address] END OF REPORT
--- NOTE | 2019-01-08 08:30 | MORECARE ---
CASE MANAGEMENT DISCHARGE SUMMARY PATIENT: MONO MENSAH UNIT: [id number] ADM DATE: 01/06/19 AGE: 73 : [birth year] SEX: M ROOM/BED: D.2230 AUTHOR: JOSEPH RÍOS PHYSICIAN: REFERRING PHYSICIAN: CHUYITA ROSALES MD DATE OF SERVICE: 01/08/19 Discharge Plan Patient Name: MONO MENSAH Facility: [facility]:[place] : 1945 Planned Disposition: Home Anticipated Discharge Date: 01/07/19 Discharge Date: 01/07/2019 Expected LOS: 1 Initial Reviewer: [email or web address] Initial Review Date: 01/06/2019 Generated: 01/08/19 9:30 am Comments DCP- Discharge Planning Updated by [email or web address]: Laila Rock on 01/07/19 8:[address] Patient Name: MONO MENSAH Admission Status: Elective Accout number: [id number] Admission Date: 01-06-2019 : 1945 Admission Diagnosis: Attending: CHUYITA ROSALES Current LOS: 1 Anticipated DC Date: 01-07-2019 Planned Disposition: Home Primary Insurance: MEDICARE A & B Discharge Planning Comments: CM MET WITH PATIENT AND HIS ABOUT DC PLANNING/NEEDS. STATES PLANS TO DC TO HOME AND DENIES NEEDS. CM TO FOLLOW. Intervention Specialist: Laila Tay DP export: 01/07/19 8:54 a Patient Name: MONO MENSAH Page 14864 at 0830 All edits/amendments must be made on the electronic document DICTATION DATE: 01/08/19829 SKIN DRIER: PAOLO 01/08/19 0830 RPT#: [id number] DC DATE:01/07/19 STATUS: DIS IN [facility] [address] [place] [address] END OF REPORT
--- NOTE | 2019-01-09 11:21 | HP ---
PATIENT: MONO MENSAH MEDICAL RECORD: [id number] ACCOUNT: [id number] LOCATION:D.[id number] : 49 ADMISSION DATE: 01/06/19 PCP: MATILDE DOTY MD HISTORY AND PHYSICAL EXAMINATION DATE OF ADMISSION: 01/06/2019 CHIEF COMPLAINT: Sleepiness, confusion, fatigue, weakness, and decreased urinary output. HISTORY OF PRESENT ILLNESS: A 73-year-old male was brought in by his for symptoms above. She states when he gets this way his kidneys are shutting down. He was able to get a urinary specimen today because he self-caths, it looked okay, but his creatinine was 2.49. On 12/29/2018, at [facility], his creatinine was 1.5. With these symptoms, he is admitted to the hospital for acute on chronic kidney injury, weakness, and dehydration. PAST MEDICAL HISTORY: He has a psoriatic arthritis followed by rheumatology at [facility]. He has hypertension, history of prostate cancer, sleep apnea - he is on BiPAP. He has COPD, hypertension, coronary artery disease, reflux, hyperlipidemia. His creatinine in the last 2 years is running anywhere from 0.75 but mostly above 1, around 1.4 to 1.5. PAST SURGICAL HISTORY: He has had TURP. He has had angioplasties, he has had cervical fusions. He has had carpal tunnel release. He has had a pacemaker placement. ALLERGIES: HE IS INTOLERANT TO STATINS. HOME MEDICATIONS: Include sulfasalazine actually 1000 mg twice a day (this was just reduced to this dose from 1500 mg twice a day on 12/29/2018), he gets Casodex 50 mg once a day, baclofen 20 mg 3 times a day, DuoNeb q. 4 hours p.r.n. wheezing and shortness of breath, Cardizem 240 mg once a day. Fish oil 1 twice a day, olmesartan 40 mg once a day, clonidine 0.1 mg p.r.n. systolic pressure greater than 190 or diastolic pressure greater than 110, aspirin 81 mg a day, gabapentin 300 mg p.o. at bedtime, hydrocodone 7.5/325 b.i.d. p.r.n. pain, morphine long-acting 15 mg q. 12 hours, Effexor 75 mg twice a day, Lasix 20 mg once a day, Pulmicort 0.5 mg b.i.d., Zofran 4 mg q. 4-6 hours p.r.n. nausea, Protonix 40 mg twice a day, Zantac 150 mg at bedtime, vitamin D3 1000 units b.i.d., garlic 1000 mg once a day, Plaquenil 200 mg twice a day. HABITS: Former smoker, no alcohol or drugs. FAMILY HISTORY: Mother had rheumatoid arthritis. Sister had rheumatoid arthritis. SOCIAL HISTORY: Retired, and lives with his . REVIEW OF SYSTEMS: GENERAL: No major weight changes. HEENT: No particular sinus or allergy problems. RESPIRATORY: Has history of COPD and sleep apnea, on BiPAP. He is followed by Dr. Burrows. CARDIAC: Has a history of coronary artery disease, arrhythmia, followed by Dr. Olson. HISTORY AND PHYSICAL [id number] MONO MENSAH GASTROINTESTINAL: He has had reflux. GENITOURINARY: He sometimes has difficulty urinating, has to self-cath at times. He has a history of prostate cancer and recently completed chemo for that. MUSCULOSKELETAL: History of psoriatic arthritis, followed at [facility]. NEUROLOGIC: No migraines, no seizure disorder. PSYCHIATRIC: Denies depression or melancholia. PHYSICAL EXAMINATION: VITAL SIGNS: Temperature 98.4, pulse 72, respirations 18, blood pressure 144/88, O2 sat 94% on 2 liters of oxygen. GENERAL: In my office, the patient was sleeping and difficult to arouse. He was awakened and he was able to walk down to the lab and give blood and give a urine specimen and when he was brought back to the room, he sat down in his chair and then fell asleep again. SKIN: Warm and dry. HEENT: Grossly within normal limits. NECK: Supple. HEART: Regular rate and rhythm. LUNGS: Fairly clear. Scattered wheeze. ABDOMEN: Soft and nontender. EXTREMITIES: Trace edema. NEUROLOGIC: Again, he is very drowsy, difficult to wake. LABORATORY DATA: In my office, his urinalysis was all okay except he had 5-10 white blood cells. Basic Metabolic Panel: Sodium was 142, potassium 4.5, chloride 105, CO2 of 27.2, BUN 38, creatinine 2.49, glucose was 113, and calcium is 9.5. ASSESSMENT: 1. Acute kidney injury on chronic kidney disease with baseline creatinine around 1.4 now up to 2.49. 2. Weakness. PLAN: Admit, give IV fluids. We will scan his bladder and see if he has retained fluid and retained urine. We will get a chest x-ray. We will give him IV fluids. We will see how he is doing in the morning. Other tests or procedures as warranted. TRANSINT:[id number] Voice Confirmation ID: [id number] DOCUMENT ID: [id number] CHUYITA ROSALES MD at 1121 CC: [id number] DICTATION DATE: 01/06/199 TOXICOLOGY TEACHER: 01/07/19 0040 DIS IN 01/07/19 [id number] [place] [address]
[2019-01-19] MEDS ORDERED: FLOMAX0.4 MG PO (13:13)
[2019-01-19] MEDS ORDERED: PREDNISONE5 MG PO (13:14)
== END 2019-01-07 11:00 | disposition home or self-care (01) ==
LOC: D.MS 17:33 → OBSVTIME 17:34 → D.MS 01-07 11:00
PROVIDERS: ADMIT Family Medicine; ATTEND Family Medicine
DX: I12.9 Hypertensive chronic kidney disease with stage 1 through stage 4 chronic kidney disease, or unspecified chronic kidney disease (principal); N18.9 Chronic kidney disease, unspecified; N17.9 Acute kidney failure, unspecified; R53.1 Weakness

== ENCOUNTER → 2019-01-15 10:11 | Outpatient (CLI) | payer MEDICARE ==
[~2019-01-15 10:11] MED LIST changes: +ERYTHROMYCIN E400 MG PO; +LEVOFLOXACIN500 MG PO; +PREDNISONE5 MG PO; +URISPAS100 MG PO
== END | disposition home or self-care (01) ==
LOC: D.CT 10:11
PROVIDERS: ATTEND Clinical Nurse Specialist Family Health
DX: M54.16 Radiculopathy, lumbar region (principal)

== ENCOUNTER 2019-01-21 09:07 | Day surgery (SDC) | payer MEDICARE ==
[2019-01-19 13:54] LABS: BASOPHILS 0.6 % (0-2); EOSINOPHILS 2.2 % (0-7); HEMATOCRIT 40.3 % (42.0-54.0); HEMOGLOBIN 13.6 g/dL (13.5-17.5); IMMATURE GRANULOCYTES 0.6 % (0-5); LYMPHOCYTES 16.7 % (15-50); MCH 32.1 pg (26.0-34.0); MCHC 33.7 g/dL (31.0-37.0); MEAN PLATELET VOLUME 9.8 fL (7.4-10.4); MONOCYTES 9.9 % (2-11); RBC 4.24 10x6/uL (4.20-6.10); RDW 13.1 % (11.5-14.5); WBC 8.5 10x3/uL (4.8-10.8)
[2019-01-19 14:10] LABS: CALCIUM 8.9 mg/dL (8.5-10.1); CARBON DIOXIDE 28.1 mmol/L (21.0-32.0); CREATININE - SERUM 1.2 mg/dL (0.6-1.3); POTASSIUM - SERUM 4.1 mmol/L (3.5-5.1)
[2019-01-19 14:21] LABS: APTT 26.3 SECONDS (22.8-39.4); PROTIME 12.7 SECONDS (11.6-15.0)
[2019-01-19 14:22] LABS: PLATELET COUNT 224 10x3/uL (130-400)
[~2019-01-21] VITALS: Ht 165.1 cm; Wt 99.3 kg
[2019-01-21 08:48] VITALS: BP 144/81; Ht 165.1 cm; Wt 99.3 kg
--- NOTE | 2019-01-21 09:01 | NUR ---
DR GUSTAFSON NOTIFIED AND REVIEWED PT'S ASSESSMENT RESULTS. PT IS A LOW RISK PER DR GUSTAFSON. DR GUSTAFSON STATED TO GIVE RESOURCES TO PT AT TIME OF DISCHARGE. NO FURTHER ORDERS AT THIS TIME. RESOURCES REVIEWED WITH PT AND HE VERBALIZED UNDERSTANDING.
[~2019-01-21 09:07] MED LIST changes: -ERYTHROMYCIN E400 MG PO; -LEVOFLOXACIN500 MG PO; -URISPAS100 MG PO
--- NOTE | 2019-02-04 09:16 | OP ---
PATIENT NAME: MONO MENSAH MEDICAL RECORD: [id number] :49 LOCATION:[facility] ADMISSION DATE: SURGEON: CEZAR SMITH MD DATE OF OPERATION: 01/21/2019 PREOPERATIVE DIAGNOSIS: Right small finger trigger finger. POSTOPERATIVE DIAGNOSIS: Right small finger trigger finger. PROCEDURE: A1 em release of right small finger, trigger finger. SURGEON: Cezar Smith MD ANESTHESIA: TIVA with local. INTRAOPERATIVE COMPLICATIONS: None. SUMMARY OF PATHOLOGIC FINDINGS: The patient had a tight A1 em with some attritional changes seen of the flexor tendon; however, no tearing was noted. OPERATIVE SUMMARY IN DETAIL: After obtaining the appropriate preoperative orthopedic surgery consent as well as anesthetic consultation, evaluation and clearance, the patient was brought to the operating room and placed in supine position. After adequate MAC anesthesia was administered, the patient's right upper extremity was prepped and draped in routine sterile fashion. The arm was elevated and exsanguinated, tourniquet inflated to 350 mmHg. Routine local infiltration of 0.25% Marcaine plain was injected about the area. Incision was taken down to the level of A1 em. Digital nerves were identified and retracted. The A1 em was incised in its entirety. The flexor mechanism was observed as above. The wound was then irrigated and closed with 4-0 Prolene in routine interrupted fashion. Sterile dressings were applied. Tourniquet was deflated. The patient was awakened and taken to recovery room in stable condition. All final needle and sponge counts were correct. TRANSINT:[id number] Voice Confirmation ID: [id number] DOCUMENT ID: [id number] 02/03/2019 Edited to right small finger, dmm. CEZAR SMITH MD at 0916 CC: [id number] DICTATION DATE: 01/22/19917 HOSE MAKER: 01/22/19 1055 [facility] 01/21/[address] [address]
== END 2019-01-21 14:15 | disposition home or self-care (01) ==
LOC: D.OPS 09:07 → D.PAN 09:45 → D.OPS 10:15 → D.PAN 10:15 → D.OPS 10:30 → D.PAN 11:00 → D.OPS 11:45 → D.PAN 11:45 → D.OPS 14:15
PROVIDERS: Anesthesiology; ATTEND Orthopaedic Surgery
DX: M65.341 Trigger finger, right ring finger (principal); Z01.812 Encounter for preprocedural laboratory examination

== ENCOUNTER 2019-01-27 10:48 | Inpatient (IN) | payer MEDICARE ==
[2019-01-27] VITALS (7 sets, daily range): BP systolic 88–134; BP diastolic 54–97; Ht 165.1 cm; Wt 102.2 kg
[~2019-01-27] VITALS: Ht 165.1 cm; Wt 102.2 kg
[2019-01-27 11:48] LABS: ALBUMIN 3.7 g/dL (3.4-5.0); ANION GAP 14.7 mmol/L (8-16); BILIRUBIN - TOTAL 0.2 mg/dL (0.2-1.3); CALCIUM 8.9 mg/dL (8.5-10.1); CARBON DIOXIDE 25.7 mmol/L (21.0-32.0); CREATININE - SERUM 3.6 mg/dL (0.6-1.3); POTASSIUM - SERUM 4.4 mmol/L (3.5-5.1); PROTEIN - SERUM 6.9 g/dL (6.4-8.2)
[2019-01-27 12:00] LABS: APTT 27.8 SECONDS (22.8-39.4); INR 0.99 (0.85-1.17); PROTIME 12.6 SECONDS (11.6-15.0)
[2019-01-27 12:09] LABS: CKMB 27.2 U/L (0.0-3.6); CREATINE KINASE 597 UL (21-232)
[2019-01-27 12:16] LABS: TROPONIN-I < 0.017 ng/mL (0.000-0.060)
[2019-01-27 12:27] LABS: BASOPHILS 0.5 % (0-2); EOSINOPHILS 4.3 % (0-7); HEMATOCRIT 34.5 % (42.0-54.0); HEMOGLOBIN 11.7 g/dL (13.5-17.5); IMMATURE GRANULOCYTES 0.5 % (0-5); LYMPHOCYTES 19.3 % (15-50); MCH 32.2 pg (26.0-34.0); MCHC 33.9 g/dL (31.0-37.0); MEAN PLATELET VOLUME 9.8 fL (7.4-10.4); MONOCYTES 10.4 % (2-11); PLATELET COUNT 235 10x3/uL (130-400); RBC 3.63 10x6/uL (4.20-6.10); RDW 13.2 % (11.5-14.5); WBC 9.9 10x3/uL (4.8-10.8)
[2019-01-27 13:50] LABS: APPEARANCE CLOUDY (CLEAR); BACTERIA MODERATE /hpf (NONE SEEN); BILIRUBIN NEGATIVE (NEGATIVE); CALCIUM OXALATE CRYSTALS RARE /hpf (NONE SEEN); COLOR YELLOW (YELLOW); EPITHELIAL CELLS 0-5 /hpf (0-5); GLUCOSE NEGATIVE (NEGATIVE); GRANULAR CAST OCC /lpf (NONE SEEN); KETONE NEGATIVE (NEGATIVE); MUCUS <1+ /lpf (NONE SEEN); NITRITE NEGATIVE (NEGATIVE); PROTEIN NEGATIVE (NEGATIVE); SPECIFIC GRAVITY 1.025 (1.005-1.020); URIC ACID CRYSTALS RARE /hpf (NONE SEEN); UROBILINOGEN NORMAL (NORMAL); WHITE CELLS - URINE 0-5 /hpf (0-5)
[2019-01-27 13:54] LABS: AMORPHOUS SEDIMENT <1+ /lpf (NONE SEEN)
--- NOTE | 2019-01-27 14:00 | NUR ---
ORDERED MERREM COMPLETED AT 1400.
--- NOTE | 2019-01-27 15:00 | NUR ---
ORDERED LEVAQUIN CONTINUED ON TRANSFER.
--- NOTE | 2019-01-27 15:45 | NUR ---
PT RECEIVED FROM ER. REFER TO FLOW SHEET. VSS DENIES NEEDS FAMILY AT BEDSIDE GIVEN UDPATE. WILL CONTINUE TO MONITOR
--- NOTE | 2019-01-27 19:00 | NUR ---
BEDSIDE REPORT AND SHIFT ASSESSMENT COMPLETE. PT ALERT AND ORIENTED. R HAND PIV DRESSING CDI, NS @ 100. VSS, NO SIGNS OF ACUTE DISTRESS NOTED. CALL LIGHT IN REACH, DENIES NEEDS AT THIS TIME. WILL CONTINUE TO MONITOR.
--- NOTE | 2019-01-27 21:00 | NUR ---
MEDS GIVEN PER MAR. NO DIFFICULTIES SWALLOWING NOTED. VSS, NO SIGNS OF ACUTE DISTRESS NOTED. WILL CONTINUE TO MONITOR.
--- NOTE | 2019-01-27 23:00 | NUR ---
REASSESSMENT COMPLETE. VSS, NO SIGNS OF ACUTE DISTRESS NOTED. PT AMBULATED TO BEDSIDE COMMODE WITH MINIMAL ASSISTANCE. CALL LIGHT IN REACH, WILL CONTINUE TO MONITOR.
[2019-01-28] VITALS (11 sets, daily range): BP systolic 98–166; BP diastolic 48–80
--- NOTE | 2019-01-28 | NUR ---
PT C/O CHEST PAIN, STAT EKG PERFORMED - SHOWED NSR. NO EKG, HR, B/P CHANGES NOTED. VSS. WILL CONTINUE TO MONITOR.
--- NOTE | 2019-01-28 01:00 | NUR ---
PT SLEEPING. VSS, NO SIGNS OF ACUTE DISTRESS NOTED. CALL LIGHT IN REACH, WILL CONTINUE TO MONITOR.
--- NOTE | 2019-01-28 03:00 | NUR ---
REASSESSMENT COMPLETE. VSS, NO SIGNS OF ACUTE DISTRESS NOTED. CALL LIGHT IN REACH, WILL CONTINUE TO MONITOR.
--- NOTE | 2019-01-28 03:20 | NUR ---
VOMITED AGAIN APPROXIMATELY 100 ML. OFFERED ZOFRAN THEN PT REFUSED. STATES, "I THINK THATS WHAT MADE ME SICK."
[2019-01-28 04:11] LABS: BASOPHILS 0.3 % (0-2); EOSINOPHILS 3.4 % (0-7); HEMATOCRIT 33.3 % (42.0-54.0); HEMOGLOBIN 11.1 g/dL (13.5-17.5); IMMATURE GRANULOCYTES 0.3 % (0-5); LYMPHOCYTES 14.3 % (15-50); MCH 32.2 pg (26.0-34.0); MCHC 33.3 g/dL (31.0-37.0); MCV 96.5 fL (80.0-100.0); MEAN PLATELET VOLUME 9.5 fL (7.4-10.4); MONOCYTES 8.3 % (2-11); NEUTROPHILS 73.4 % (40-80); RBC 3.45 10x6/uL (4.20-6.10); RDW 13.3 % (11.5-14.5); WBC 7.6 10x3/uL (4.8-10.8)
[2019-01-28 04:18] LABS: PLATELET COUNT 159 10x3/uL (130-400)
[2019-01-28 04:24] LABS: ANION GAP 10.7 mmol/L (8-16); CALCIUM 8.1 mg/dL (8.5-10.1); CARBON DIOXIDE 26.1 mmol/L (21.0-32.0); CREATININE - SERUM 1.6 mg/dL (0.6-1.3); POTASSIUM - SERUM 4.8 mmol/L (3.5-5.1)
--- NOTE | 2019-01-28 05:00 | NUR ---
PT SLEEPING. VSS, NO SIGNS OF ACUTE DISTRESS NOTED. WILL CONTINUE TO MONITOR.
--- NOTE | 2019-01-28 07:00 | NUR ---
RECEIVED REPORT FAT BEDSIDE FROM AUDREY WILEY. PT RESTING IN BED AWAKE AND ALERT C VSS. RIGHT HAND IV C NS AT 100ML/HR. GUAJARDO DRAINING CLEAR YELLOW URINE. WILL CONTINUE TO MONITOR
--- NOTE | 2019-01-28 09:00 | NUR ---
ORDERED PT REGULAR DIET AND BREAKFAST TRAY. VSS. FAMILY MEMBER IN ROOM
--- NOTE | 2019-01-28 09:41 | NUR ---
BREAKFAST TRAY SERVED TO PATIENT. VSS. NO COMPLAINTS
--- NOTE | 2019-01-28 10:50 | NUR ---
REPORT GIVEN TO AUDREY MONTERO FROM [facility] 3.
--- NOTE | 2019-01-28 11:01 | NUR ---
TRANSFERRED PATIENT TO 1213 ON MED 3 VIA WHEEL CHAIR. PT STABLE. WITH PATIENT.
--- NOTE | 2019-01-28 11:24 | NUR ---
PT ARRIVED TO FLOOR VIA WHEELCHAIR FROM ICU. FAMILY AT BEDSIDE, VSS AND WNL. DENIES ANY NEEDS AT THIS TIME. WILL CONT TO FOLLOW POC
--- NOTE | 2019-01-28 16:13 | NUR ---
PT RESTING IN BED, DENIES ANY NEEDS AT THIS TIME, WILL CONT TO FOLLOW POC
--- NOTE | 2019-01-28 19:15 | NUR ---
LYING IN BED. ALERT AND ORIENTED X4. FLAT AFFECT. SLOW TO RESPOND TO QUESTIONS. IRRITABLE. ENCOURAGED USE OF CPAP. O2 @ 2L/NC. BRUISES NOTED TO BUE AND BLE. GUAJARDO CATH PATENT AND DRAINING CLEAR YELLOW URINE. ABD DISTENDED. BS PRESENT X4 QUADS. NS @ 100 ML/HR INFUSING IN RT HAND WITHOUT DIFF. RESP SLIGHTLY LABORED, IRREGULAR. SR ELEVATED X1. CL IN REACH.
--- NOTE | 2019-01-28 21:00 | NUR ---
CPAP ON. PM MEDS GIVEN. NO DISTRESS. DENIES NEEDS. CL IN REACH.
--- NOTE | 2019-01-28 23:35 | NUR ---
PT C/O NAUSEA. MEDICATED WITH ZOFRAN.
[2019-01-29 00:05] VITALS: BP 168/78
--- NOTE | 2019-01-29 00:24 | NUR ---
PT PROJECTILE VOMITED LARGE AMOUNT OF UNDIGESTED FOOD. B/P ELEVATED AT THIS TIME BUT NO DISTRESS. O2 @ 2L/NC. CL IN REACH.
--- NOTE | 2019-01-29 02:39 | NUR ---
LYING IN BED WITH EYES CLOSED. SNORING. O2 @ 2L/NC. NOT WEARING CPAP SINCE EPISODE OF VOMITING. CL IN REACH.
--- NOTE | 2019-01-29 03:20 | NUR ---
VOMITED APPROX 100 ML. OFFERED ZOFRAN THAN REFUSED IT. STATES, "I THINK THATS WHAT MADE ME SICK"
[2019-01-29 03:46] VITALS: BP 164/74
--- NOTE | 2019-01-29 07:56 | NUR ---
ALERT AND ORIENTED X4. LUNGS DISMINISHED TO BLQ POSTERIOR. O2-2L N/C. NO DYSPNEA OR SOB NOTED AT THIS TIME. GUAJARDO CATH PATENT WITH CLEAR ROLLY URINE NOTED. SBA TO BATHROOM. IV TO RT. HAND INFUSING AT PRESCRIBED RATE. ABDOMEN OBESE WITH BS NOTED X4. ENOUCARAGED TO USE CALL LIGHT FOR ASSIST.
[2019-01-29 07:59] VITALS: BP 191/87
[2019-01-29 08:50] LABS: CALCIUM 8.7 mg/dL (8.5-10.1); CHLORIDE - SERUM 109 mmol/L (98-107); GLUCOSE 97 mg/dL (74-106); POTASSIUM - SERUM 4.7 mmol/L (3.5-5.1); SODIUM 145 mmol/L (136-145)
[2019-01-29 08:52] LABS: CALC OSMOLALITY 287 mosm/kg (275-300); CARBON DIOXIDE 33.5 mmol/L (21.0-32.0); CREATININE - SERUM 0.8 mg/dL (0.6-1.3); UREA NITROGEN 11 mg/dL (7-18); eGFR NON AFRICAN AMERICAN > 90 mL/min (90-120)
--- NOTE | 2019-01-29 09:19 | MORECARE ---
CASE MANAGEMENT DISCHARGE SUMMARY PATIENT: MONO MENSAH UNIT: [id number] ADM DATE: 01/27/19 AGE: 73 : 47 SEX: M ROOM/BED: D.1213 AUTHOR: JOSEPH RÍOS PHYSICIAN: REFERRING PHYSICIAN: LAZARO BATISTA MD DATE OF SERVICE: 01/29/19 Discharge Plan Patient Name: MONO MENSAH Facility: [facility]:[place] : 1945 Planned Disposition: Home Anticipated Discharge Date: Discharge Date: Expected LOS: Initial Reviewer: [email or web address] Initial Review Date: 01/29/2019 Generated: 01/29/19 10:19 am Patient Name: MONO MENSAH Page [id number] at 0919 All edits/amendments must be made on the electronic document DICTATION DATE: 01/29/19918 SPRAY OPERATOR: PAOLO 01/29/19918 RPT#: [id number] DC DATE: STATUS: ADM IN [facility] [address] [place] [address] END OF REPORT
--- NOTE | 2019-01-29 09:26 | MORECARE ---
CASE MANAGEMENT DISCHARGE SUMMARY PATIENT: MONO MENSAH UNIT: [id number] ADM DATE: 01/27/19 AGE: 73 : 47 SEX: M ROOM/BED: D.1213 AUTHOR: [email or web address] PHYSICIAN: REFERRING PHYSICIAN: LAZARO BATISTA MD DATE OF SERVICE: 01/29/19 Discharge Plan Patient Name: MONO MENSAH Facility: [facility]:[place] : 1945 Planned Disposition: Home Anticipated Discharge Date: Discharge Date: Expected LOS: Initial Reviewer: [email or web address] Initial Review Date: 01/29/2019 Generated: 01/29/19 10:26 am Comments DCP- Discharge Planning Updated by [email or web address]: Laila Rock on 01/29/19 8:[address] Patient Name: MONO MENSAH Admission Status: ER Accout number: [id number] Admission Date: 01-27-2019 : 1945 Admission Diagnosis: Attending: LAZARO BATISTA Current LOS: 2 Anticipated DC Date: Planned Disposition: Home Primary Insurance: MEDICARE A & B Discharge Planning Comments: CM MET WITH PATIENT AND HIS SAMUEL ABOUT DC PLANNING/NEEDS. STATES HAS TRILOGY, O2, NEBS AND CANE AT HOME. STATES SHE HELPS CARE FOR HIM AT HOME AND THAT HE WOULD NOT WANT HH. IMM SIGNED. CM TO FOLLOW AND ASSIST. Manager Studio: Laila Rock DCPIA - Discharge Planning Initial Assessment Updated by [email or web address]: Laila Rock on 01/29/19 9:20 am * Is the patient Alert and Oriented? Yes * PCP HAN * Pharmacy DEE * Preadmission Environment Home with Family * ADLs Independent * Equipment Cane Nebulizer Oxygen * Other Equipment TRILOGY-AEROCARE * List name and contact numbers for known caregivers / representatives who currently or will assist patient after discharge: SAMUEL, * Verbal permission to speak to the caregivers and representatives has been obtained from the patient. Yes * Community resources currently utilized None * Additional services required to return to the preadmission environment? No * Can the patient safely return to the preadmission environment? Yes * Has this patient been hospitalized within the prior 30 days at any hospital? No Last DP export: 9/13/19 8:20 a Patient Name: MONO MENSAH Page 63790 at 0926 All edits/amendments must be made on the electronic document DICTATION DATE: 01/29/19925 AUTO BODY SHOP MANAGER: PAOLO 01/29/19925 RPT#: [id number] DC DATE: STATUS: ADM IN [facility] [address] [place] [address] END OF REPORT
[2019-01-29 12:00] VITALS: BP 189/94
[2019-01-29 15:37] VITALS: BP 169/65
[2019-01-29 20:00] VITALS: BP 158/71
[2019-01-30] VITALS: BP 170/68
[2019-01-30 07:47] LABS: BASOPHILS 0.2 % (0-2); EOSINOPHILS 2.5 % (0-7); HEMATOCRIT 36.5 % (42.0-54.0); IMMATURE GRANULOCYTES 0.2 % (0-5); LYMPHOCYTES 13.3 % (15-50); MCH 31.5 pg (26.0-34.0); MCHC 32.9 g/dL (31.0-37.0); MCV 95.8 fL (80.0-100.0); MEAN PLATELET VOLUME 9.8 fL (7.4-10.4); MONOCYTES 8.8 % (2-11); PLATELET COUNT 181 10x3/uL (130-400); RBC 3.81 10x6/uL (4.20-6.10); WBC 8.6 10x3/uL (4.8-10.8)
[2019-01-30 08:04] LABS: CALC OSMOLALITY 283 mosm/kg (275-300); CALCIUM 8.7 mg/dL (8.5-10.1); CARBON DIOXIDE 33.7 mmol/L (21.0-32.0); CHLORIDE - SERUM 108 mmol/L (98-107); CREATININE - SERUM 0.7 mg/dL (0.6-1.3); GLUCOSE 88 mg/dL (74-106); POTASSIUM - SERUM 4.3 mmol/L (3.5-5.1); SODIUM 144 mmol/L (136-145); eGFR NON AFRICAN AMERICAN > 90 mL/min (90-120)
[2019-01-30 08:07] VITALS: BP 160/80
[2019-01-30 08:13] LABS: UREA NITROGEN 6 mg/dL (7-18)
[2019-01-30] MEDS ORDERED: LEVOFLOXACIN500 MG PO (08:59)
--- NOTE | 2019-01-30 09:00 | NUR ---
ALERT AND OREITNED X4. O2 2L N/C. DIMINISHED BREATH SOUNDS POSTERIOR TO BLQ POSTERIOR. HRRR WITH SKIN WARM AND DRY. GUAJARDO CATH PATNET WITH STRAW COLOR URINE NOTED. NO COMPLAINTS AT THIS TIME AND ENCOURAGED TO USE CALL LIGHT FOR ASSIST.
--- NOTE | 2019-01-30 10:47 | MORECARE ---
CASE MANAGEMENT DISCHARGE SUMMARY PATIENT: MONO MENSAH UNIT: [id number] ADM DATE: 01/27/19 AGE: 73 : 47 SEX: M ROOM/BED: D.1213 AUTHOR: JOSEPH RÍOS PHYSICIAN: REFERRING PHYSICIAN: LAZARO BATISTA MD DATE OF SERVICE: 01/30/19 Discharge Plan Patient Name: MONO MENSAH Facility: [facility]:[place] : 1945 Planned Disposition: Home Anticipated Discharge Date: Discharge Date: Expected LOS: Initial Reviewer: [email or web address] Initial Review Date: 01/29/2019 Generated: 01/30/19 11:47 am DCP- Discharge Planning Updated by [email or web address]: Laila Rock on 01/29/19 8:[address] Patient Name: MONO MENSAH Admission Status: ER Accout number: [id number] Admission Date: 01-27-2019 : 1945 Admission Diagnosis: Attending: LAZARO BATISTA Current LOS: 2 Anticipated DC Date: Planned Disposition: Home Primary Insurance: MEDICARE A & B Discharge Planning Comments: CM MET WITH PATIENT AND HIS SAMUEL ABOUT DC PLANNING/NEEDS. STATES HAS TRILOGY, O2, NEBS AND CANE AT HOME. STATES SHE HELPS CARE FOR HIM AT HOME AND THAT HE WOULD NOT WANT HH. IMM SIGNED. CM TO FOLLOW AND ASSIST. Cloud Developer: Laila Rock DCPIA - Discharge Planning Initial Assessment Updated by [email or web address]: Laila Rock on 01/29/19 9:20 am * Is the patient Alert and Oriented? Yes * PCP HAN * Pharmacy DEE * Preadmission Environment Home with Family * ADLs Independent * Equipment Cane Nebulizer Oxygen * Other Equipment TRILOGY-AEROCARE * List name and contact numbers for known caregivers / representatives who currently or will assist patient after discharge: SAMUEL, * Verbal permission to speak to the caregivers and representatives has been obtained from the patient. Yes * Community resources currently utilized None * Additional services required to return to the preadmission environment? No * Can the patient safely return to the preadmission environment? Yes * Has this patient been hospitalized within the prior 30 days at any hospital? No External Providers External Provider: [facility] Next Contact Date: Service Request Date: Service Type: Resolution: Reviewer: Comments: Coverage Notice Reviewer: [id number] - Laila Rock Notice Issued Date-Time: 01/29/2019 9:27 Notice Type: IM Discharge Notice Notice Delivered To: Patient Relationship to Patient: Self Certified Registered Nurse Anesthetist Name: Delivery Method: HAND - Hand Delivered Vero Days: Prior Verbal Notification: Recipient Understood Notice: Yes Recipient Signature: Yes Med Rec Note Co-signed by Attending: Coverage Notice Comment: Last DP export: 01/29/19 8:26 a Patient Name: MONO MENSAH Page 11449 at 1047 All edits/amendments must be made on the electronic document DICTATION DATE: 01/30/19 104 CARPENTER WOODEN TANK ERECTING: PAOLO 01/30/19 1047 RPT#: [id number] DC DATE: STATUS: ADM IN [facility] [address] [place] [address] END OF REPORT
--- NOTE | 2019-01-30 11:02 | MORECARE ---
CASE MANAGEMENT DISCHARGE SUMMARY PATIENT: MONO MENSAH UNIT: [id number] ADM DATE: 01/27/19 AGE: 73 : 47 SEX: M ROOM/BED: D.1213 AUTHOR: JOSEPH RÍOS PHYSICIAN: REFERRING PHYSICIAN: LAZARO BATISTA MD DATE OF SERVICE: 01/30/19 Discharge Plan Patient Name: MONO MENSAH Facility: [facility]:[place] : 1945 Planned Disposition: Home Anticipated Discharge Date: Discharge Date: Expected LOS: Initial Reviewer: [email or web address] Initial Review Date: 01/29/2019 Generated: 01/30/19 12:02 pm Comments DCP- Discharge Planning Updated by [email or web address]: Monica Casey on 01/30/19 9:[address] DC PLAN: Patient discharging home today with and [facility]. DC order received with order for home health for routine [facility]. CM met with patient and his to discuss. CM noted refusal of HH services prior to discharge. Both patient and his are agreeable to HH now due to [facility] care. SIENA discussed, list of HH agencies provided, spouse stated she has heard good things about [facility] and wishes to use them. SIENA signed by patient for [facility]. Signed from placed in patient's chart and copy given to the patient. Patient denied further discharge needs at this time. CM left contact number and encouraged them to call if further needs arise. Monica Casey RN,[facility] DCP- Discharge Planning Updated by [email or web address]: Laila Rock on 01/29/19 8:[address] Patient Name: MONO MENSAH Admission Status: ER Accout number: [id number] Admission Date: 01-27-2019 : 1945 Admission Diagnosis: Attending: LAZARO BATISTA Current LOS: 2 Anticipated DC Date: Planned Disposition: Home Primary Insurance: MEDICARE A & B Discharge Planning Comments: CM MET WITH PATIENT AND HIS SAMUEL ABOUT DC PLANNING/NEEDS. STATES HAS TRILOGY, O2, NEBS AND CANE AT HOME. STATES SHE HELPS CARE FOR HIM AT HOME AND THAT HE WOULD NOT WANT HH. IMM SIGNED. CM TO FOLLOW AND ASSIST. Latent Fingerprint Examiner: Laila Rock DCPIA - Discharge Planning Initial Assessment Updated by [email or web address]: Laila Rock on 01/29/19 9:20 am * Is the patient Alert and Oriented? Yes * PCP HAN * Pharmacy DEE * Preadmission Environment Home with Family * ADLs Independent * Equipment Cane Nebulizer Oxygen * Other Equipment TRILOGY-AEROCARE * List name and contact numbers for known caregivers / representatives who currently or will assist patient after discharge: SAMUEL, * Verbal permission to speak to the caregivers and representatives has been obtained from the patient. Yes * Community resources currently utilized None * Additional services required to return to the preadmission environment? No * Can the patient safely return to the preadmission environment? Yes * Has this patient been hospitalized within the prior 30 days at any hospital? No Coverage Notice Reviewer: [id number] - Laila Rock Notice Issued Date-Time: 01/29/2019 9:27 Notice Type: IM Discharge Notice Notice Delivered To: Patient Relationship to Patient: Self Home Restoration Service Supervisor Name: Delivery Method: HAND - Hand Delivered Vero Days: Prior Verbal Notification: Recipient Understood Notice: Yes Recipient Signature: Yes Med Rec Note Co-signed by Attending: Coverage Notice Comment: Last DP export: 01/30/19 9:47 a Patient Name: MONO MENSAH Page 33805 at 1102 All edits/amendments must be made on the electronic document DICTATION DATE: 01/30/191101 WATER TAXI BOAT MATE: PAOLO 01/30/191101 RPT#: [id number] DC DATE: STATUS: ADM IN [facility] [address] [place] [address] END OF REPORT
--- NOTE | 2019-01-30 11:39 | NUR ---
IV DISCONTINUED AND VERBALIZED UNDERSTANDING OF DISCHARGE INSTRUCTIONS. STABLE AT TIME OF DEPARTURE VIA POV WITH .
--- NOTE | 2019-02-01 08:40 | MORECARE ---
CASE MANAGEMENT DISCHARGE SUMMARY PATIENT: MONO MENSAH UNIT: [id number] ADM DATE: 01/27/19 AGE: 73 : 47 SEX: M ROOM/BED: D.1213 AUTHOR: JOSEPH RÍOS PHYSICIAN: REFERRING PHYSICIAN: LAZARO BATISTA MD DATE OF SERVICE: 02/01/19 Discharge Plan Patient Name: MONO MENSAH Facility: [facility]:[place] : 1945 Planned Disposition: Home Anticipated Discharge Date: Discharge Date: 01/30/2019 Expected LOS: Initial Reviewer: [email or web address] Initial Review Date: 01/29/2019 Generated: 02/01/19 9:39 am Comments DCP- Discharge Planning Updated by [email or web address]: Monica Casey on 01/30/19 9:[address] DC PLAN: Patient discharging home today with and [facility]. DC order received with order for home health for routine [facility] care. CM met with patient and his to discuss. CM noted refusal of HH services prior to discharge. Both patient and his are agreeable to HH now due to [facility] care. SIENA discussed, list of HH agencies provided, spouse stated she has heard good things about [facility] and wishes to use them. SIENA signed by patient for [facility]. Signed from placed in patient's chart and copy given to the patient. Patient denied further discharge needs at this time. CM left contact number and encouraged them to call if further needs arise. Monica Casey RN,[facility] DCP- Discharge Planning Updated by [email or web address]: Laila Rock on 01/29/19 8:[address] Patient Name: MONO MENSAH Admission Status: ER Accout number: [id number] Admission Date: 01-27-2019 : 1945 Admission Diagnosis: Attending: LAZARO BATISTA Current LOS: 2 Anticipated DC Date: Planned Disposition: Home Primary Insurance: MEDICARE A & B Discharge Planning Comments: CM MET WITH PATIENT AND HIS SAMUEL ABOUT DC PLANNING/NEEDS. STATES HAS TRILOGY, O2, NEBS AND CANE AT HOME. STATES SHE HELPS CARE FOR HIM AT HOME AND THAT HE WOULD NOT WANT HH. IMM SIGNED. CM TO FOLLOW AND ASSIST. Traffic Personnel Supervisor: Laila Rock DCPIA - Discharge Planning Initial Assessment Updated by [email or web address]: Laila Rock on 01/29/19 9:20 am * Is the patient Alert and Oriented? Yes * PCP HAN * Pharmacy DEE * Preadmission Environment Home with Family * ADLs Independent * Equipment Cane Nebulizer Oxygen * Other Equipment TRILOGY-AEROCARE * List name and contact numbers for known caregivers / representatives who currently or will assist patient after discharge: SAMUEL, * Verbal permission to speak to the caregivers and representatives has been obtained from the patient. Yes * Community resources currently utilized None * Additional services required to return to the preadmission environment? No * Can the patient safely return to the preadmission environment? Yes * Has this patient been hospitalized within the prior 30 days at any hospital? No Coverage Notice Reviewer: [id number] - Laila Rock Notice Issued Date-Time: 01/29/2019 9:27 Notice Type: IM Discharge Notice Notice Delivered To: Patient Relationship to Patient: Self Candy Packer Name: Delivery Method: HAND - Hand Delivered Vero Days: Prior Verbal Notification: Recipient Understood Notice: Yes Recipient Signature: Yes Med Rec Note Co-signed by Attending: Coverage Notice Comment: Last DP export: 01/30/19 10:02 a Patient Name: MONO MENSAH Page 19741 at 0840 All edits/amendments must be made on the electronic document DICTATION DATE: 02/01/19838 NATURAL RESOURCES SPECIALIST: PAOLO 02/01/19838 RPT#: [id number] DC DATE:01/30/19 STATUS: DIS IN [facility] [address] [place] [address] END OF REPORT
== END 2019-01-30 11:40 | disposition home health service (06) | DRG 699 ==
LOC: D.ER 10:48 → D.ICU 13:30 → D.M3 13:30
PROVIDERS: Emergency Medicine; ADMIT Family Medicine; ATTEND Family Medicine
DX: N13.9 Obstructive and reflux uropathy, unspecified (principal); N17.9 Acute kidney failure, unspecified; I95.9 Hypotension, unspecified; E86.0 Dehydration; R33.9 Retention of urine, unspecified; N40.0 Benign prostatic hyperplasia without lower urinary tract symptoms; J44.9 Chronic obstructive pulmonary disease, unspecified; I10 Essential (primary) hypertension; K21.9 Gastro-esophageal reflux disease without esophagitis; I25.10 Atherosclerotic heart disease of native coronary artery without angina pectoris; E78.5 Hyperlipidemia, unspecified; F32.9 Major depressive disorder, single episode, unspecified; G62.9 Polyneuropathy, unspecified; Z91.19 Patient's noncompliance with other medical treatment and regimen

== ENCOUNTER 2019-02-14 04:20 | Inpatient (IN) | payer MEDICARE ==
[~2019-02-14] VITALS: Ht 165.1 cm; Wt 106.6 kg
[~2019-02-14 04:20] MED LIST changes: +LEVOFLOXACIN500 MG PO
--- NOTE | 2019-02-14 04:52 | NUR ---
PT LEFT ED VIA STRETCHER FOR CT.
[2019-02-14 05:39] LABS: COLOR YELLOW (YELLOW)
[2019-02-14 05:40] VITALS: BP 132/69
[2019-02-14 05:40] LABS: APPEARANCE CLOUDY (CLEAR); BILIRUBIN NEGATIVE (NEGATIVE); GLUCOSE NEGATIVE (NEGATIVE); KETONE NEGATIVE (NEGATIVE); NITRITE NEGATIVE (NEGATIVE); PROTEIN 2+ mg/dL (NEGATIVE); SPECIFIC GRAVITY 1.015 (1.005-1.020); UROBILINOGEN NORMAL (NORMAL)
[2019-02-14 05:41] LABS: EPITHELIAL CELLS 0-5 /hpf (0-5); RED CELLS - URINE 25-50 /hpf (0-5)
[2019-02-14 05:42] LABS: BACTERIA FEW /hpf (NEGATIVE); UDS - AMPHET NEGATIVE QUAL (NEGATIVE); UDS - BARB NEGATIVE QUAL (NEGATIVE); UDS - BENZO NEGATIVE QUAL (NEGATIVE); UDS - COCAINE NEGATIVE QUAL (NEGATIVE); UDS - OPIATE POSITIVE QUAL (NEGATIVE); UDS - PCP NEGATIVE QUAL (NEGATIVE); UDS - THC NEGATIVE QUAL (NEGATIVE); YEAST NONE SEEN /hpf (NONE SEEN)
[2019-02-14 05:45] LABS: BASOPHILS 0.2 % (0-2); EOSINOPHILS 2.9 % (0-7); HEMATOCRIT 37.2 % (42.0-54.0); HEMOGLOBIN 12.2 g/dL (13.5-17.5); IMMATURE GRANULOCYTES 0.7 % (0-5); MCHC 32.8 g/dL (31.0-37.0); MCV 97.6 fL (80.0-100.0); MEAN PLATELET VOLUME 9.1 fL (7.4-10.4); MONOCYTES 9.1 % (2-11); NEUTROPHILS 81.1 % (40-80); PLATELET COUNT 216 10x3/uL (130-400); RBC 3.81 10x6/uL (4.20-6.10); RDW 13.6 % (11.5-14.5); WBC 11.5 10x3/uL (4.8-10.8)
--- NOTE | 2019-02-14 05:50 | NUR ---
PT RESTING ON BED. PT WAKES TO PAINFUL STIMULI. PT FAMILY AT BEDSIDE.
[2019-02-14 06:04] LABS: APTT 27.4 SECONDS (22.8-39.4); PROTIME 12.7 SECONDS (11.6-15.0)
[2019-02-14 06:06] LABS: ALBUMIN 3.8 g/dL (3.4-5.0); ALKALINE PHOSPHATASE 79 U/L (46-116); ALT (SGPT) 18 U/L (10-68); BILIRUBIN - TOTAL 0.25 mg/dL (0.2-1.3); CALC OSMOLALITY 279 mosm/kg (275-300); CALCIUM 8.8 mg/dL (8.5-10.1); CHLORIDE - SERUM 100 mmol/L (98-107); CREATININE - SERUM 2.8 mg/dL (0.6-1.3); GLUCOSE 128 mg/dL (74-106); PROTEIN - SERUM 6.9 g/dL (6.4-8.2); SODIUM 137 mmol/L (136-145); UREA NITROGEN 25 mg/dL (7-18); eGFR NON AFRICAN AMERICAN 24 mL/min (90-120)
--- NOTE | 2019-02-14 06:15 | NUR ---
C COLLAR REMOVED PER TYRON MIRIAM INSTRUCTION.
--- NOTE | 2019-02-14 06:20 | NUR ---
PT WAKES TO VERBAL STIMULI AT THIS TIME. PT C/O LOWER LEGS "HURTING". PT FAMILY AT BEDSIDE.
[2019-02-14 06:21] VITALS: BP 177/84
[2019-02-14 06:26] LABS: CKMB 39.6 U/L (0.0-3.6); CREATINE KINASE 511 UL (21-232); MAGNESIUM - SERUM 1.8 mg/dL (1.8-2.4); THYROID STIMULATING HORMONE 5.61 uIU/mL (0.36-3.74)
[2019-02-14 06:30] LABS: TROPONIN-I < 0.017 ng/mL (0.000-0.060)
[2019-02-14 08:57] VITALS: BP 112/57; BMI 39.1
[2019-02-14 09:36] VITALS: BP 158/67
--- NOTE | 2019-02-14 19:15 | NUR ---
RECEIVED CARE FROM DAY NURSE. LYING IN BED ON RIGHT SIDE. FAMILY AT BEDSIDE. ON TRILIGY WITH EYES CLOSED. RESP EVEN AND UNLABORED. IV INFUSING PER ORDER TO PATENT LEFT FA. DOES RESPOND TO STIMULI. GUAJARDO TO GRAVITY.
[2019-02-14 20:56] VITALS: BP 117/48
[2019-02-15 01:48] VITALS: BP 135/66
[2019-02-15 05:24] VITALS: BP 146/80
[2019-02-15 05:42] LABS: BASOPHILS 0.2 % (0-2); HEMATOCRIT 36.1 % (42.0-54.0); HEMOGLOBIN 11.3 g/dL (13.5-17.5); IMMATURE GRANULOCYTES 0.3 % (0-5); LYMPHOCYTES 11.9 % (15-50); MCH 30.6 pg (26.0-34.0); MCHC 31.3 g/dL (31.0-37.0); MCV 97.8 fL (80.0-100.0); MEAN PLATELET VOLUME 9.9 fL (7.4-10.4); NEUTROPHILS 75.6 % (40-80); PLATELET COUNT 205 10x3/uL (130-400); RBC 3.69 10x6/uL (4.20-6.10); RDW 13.5 % (11.5-14.5); WBC 9.4 10x3/uL (4.8-10.8)
[2019-02-15 06:04] LABS: CALC OSMOLALITY 284 mosm/kg (275-300); CALCIUM 8.5 mg/dL (8.5-10.1); CARBON DIOXIDE 25.5 mmol/L (21.0-32.0); CHLORIDE - SERUM 108 mmol/L (98-107); GLUCOSE 91 mg/dL (74-106); MAGNESIUM - SERUM 1.7 mg/dL (1.8-2.4); PHOSPHOROUS 2.8 mg/dL (2.5-4.9); SODIUM 142 mmol/L (136-145); UREA NITROGEN 19 mg/dL (7-18); eGFR NON AFRICAN AMERICAN 78 mL/min (90-120)
--- NOTE | 2019-02-15 07:21 | NUR ---
PATIENT SAYS HE IS HAVING CHEST PAIN. TELEMETY SHOWS SR. VSS 185/77,HEART RATE 65, RESPIRATIONS 16, 97% ON 2L NC. SKIN WNL. FAMILY AT BEDSIDE. WILL GET EKG. DR. BATISTA HERE NOW.
--- NOTE | 2019-02-15 07:49 | NUR ---
AWAKE AND ALERT. ORIENTED TO SELF. NO NEEDS NOTED. FAMILY AT BEDSIDE. NO C/O PAIN AT THIS TIME. LUNGS ARE CLEAR BILATERALLY, NO COUGH NOTED. SKIN IS INTACT WTIHOUT REDNESS. SCD'S IN PLACE. IV TO LEFT FOREARM IS PATENT WITHOUT REDNESS AT INSERTION SITE. DENIES NEEDS. GUAJARDO PATETN WITH CLEAR ROLLY URINE.
[2019-02-15 07:59] VITALS: BP 185/77
--- NOTE | 2019-02-15 09:30 | NUR ---
DAUGHTER ASSISTED WITH BREAKFAST. ATE ALMOST ALL OF TRAY. TOOK AM MEDS WITHOUT DIFFICULTY.
[2019-02-15 14:55] VITALS: Ht 165.1 cm; Wt 106.6 kg
[2019-02-15 15:55] VITALS: BP 163/73
--- NOTE | 2019-02-15 20:00 | NUR ---
LETHARGIC BUT RESPONDS TO STIMULI. NO SIGNS OF ACUTE DISTRESS NOTED. IV TO THE LT FOREARM WITH NO REDNESS OR SWELLING. GUAJARDO AND TRIOLOGY MACHINE IN PLACE. FAMILY VOICES CONCERN FOR EYE REDNESS AND REQUEST THAT I MAKE NOTE. DENIES OTHER NEEDS. CONTINUE WITH PLAN OF CARE.
[2019-02-15 22:28] VITALS: BP 100/70
[2019-02-16] VITALS (8 sets, daily range): BP systolic 127–231; BP diastolic 71–94
--- NOTE | 2019-02-16 02:03 | NUR ---
GAVE PRN BP MED FOR BP OF 210/84 VIA MANUAL. WILL CONTINUE TO MONITOR.
[2019-02-16 05:20] LABS: BASOPHILS 0.3 % (0-2); EOSINOPHILS 2.5 % (0-7); HEMOGLOBIN 11.4 g/dL (13.5-17.5); IMMATURE GRANULOCYTES 0.4 % (0-5); LYMPHOCYTES 13.6 % (15-50); MCH 31.3 pg (26.0-34.0); MCHC 32.6 g/dL (31.0-37.0); MCV 96.2 fL (80.0-100.0); MEAN PLATELET VOLUME 9.8 fL (7.4-10.4); MONOCYTES 12.1 % (2-11); NEUTROPHILS 71.1 % (40-80); PLATELET COUNT 177 10x3/uL (130-400); RBC 3.64 10x6/uL (4.20-6.10); RDW 13.1 % (11.5-14.5); WBC 7.2 10x3/uL (4.8-10.8)
[2019-02-16 05:31] LABS: CALCIUM 8.6 mg/dL (8.5-10.1); CARBON DIOXIDE 28.9 mmol/L (21.0-32.0); CHLORIDE - SERUM 107 mmol/L (98-107); GLUCOSE 95 mg/dL (74-106); POTASSIUM - SERUM 3.7 mmol/L (3.5-5.1); SODIUM 142 mmol/L (136-145)
[2019-02-16 05:37] LABS: CALC OSMOLALITY 281 mosm/kg (275-300); CREATININE - SERUM 0.6 mg/dL (0.6-1.3); UREA NITROGEN 11 mg/dL (7-18); eGFR NON AFRICAN AMERICAN > 90 mL/min (90-120)
--- NOTE | 2019-02-16 07:42 | NUR ---
PT IS RESTING IN BED WITH EYES OPEN. RESPIRATIONS ARE EVEN AND UNLABORED. PT IS ORIENTED X 3. FAMILY IS AT BEDSIDE. SCDS ARE ON. PT FAMILY REPORTS A FALL AT HOME ON FRIDAY RESULTING IN RIGHT ARM PAIN. WILL ADDRESS. GUAJARDO CATHETER IN PLACE. STAT LOCK IN PLACE. CATHETER IS DRAINING WITHOUT DIFFICULTY. CLEAR DARK YELLOW URINE NOTED TO COLLECTION BAG. PT DENIES PRESENCE OF PAIN/N/V AT THIS TIME. BED ALARM IS ON AND WORKING. BED IS IN THE LOWEST POSITION. CALL LIGHT AND BEDSIDE TABLE ARE WITHIN REACH. SIDE RAILS X 2. PT DENIES FURTHER NEEDS. WILL CONT TO MONITOR.
--- NOTE | 2019-02-16 18:00 | NUR ---
PIV TO LEFT FOREARM WITH REDNESS AND TENDERNESS. PIV REMOVED WITH CATHETER TIP INTACT. IV TO R FA X 1 ATTEMPT BY VASCULAR ACCESS NURSE KATHARINE.
--- NOTE | 2019-02-16 23:12 | NUR ---
A/O WITH NO SIGNS OF ACUTE DISTRESS. IV TO THE RT FOREARM WITH NO REDNESS OR SWELLING NOTED. O2 ON AT 2L AND GUAJARDO IN PLACE. DENIES NEEDS AT THIS TIME. CONTINUE WITH PLAN OF CARE.
--- NOTE | 2019-02-17 01:15 | NUR ---
212/88 BP VIA MANUAL. GAVE PRN BP MED. WILL CONTINUE TO MONITOR.
[2019-02-17 01:50] VITALS: BP 217/98
[2019-02-17 04:58] VITALS: BP 218/88
--- NOTE | 2019-02-17 05:29 | NUR ---
BP OF 200/90 VIA MANUAL. GAVE PRN BP MED. WILL CONTINUE TO MONITOR.
--- NOTE | 2019-02-17 07:19 | NUR ---
PT IS RESTING IN BED WITH EYES OPEN. RESPIRATIONS ARE EVEN AND UNLABORED. PT IS AT BEDSIDE. FLEY CATHETER IS DRAINING WITHOUT DIFFICULTY. DARK YELLOW URINE NOTED IN COLLECTION BAG. PIV TO RIGHT FA IS INFUSING WITHOUT DIFFICULTY. PT IS AAO X 4 BUT IS SLOW TO RESPOND HOWEVER RESPONDS TO QUESTIONS APPROPRIATELY. PT DENIES PRESENCE OF PAIN/N/V AT THIS TIME. BED IS IN THE LOWEST POSITION. CALL LIGHT AND BEDSIDE TABLE ARE WITHIN REACH. SIDE RAILS X 2. BED ALARM IS ON AND WOKRING. PT DENIES FURTHER NEEDS. WILL CONT TO MONITOR.
[2019-02-17 07:33] LABS: BASOPHILS 0.2 % (0-2); EOSINOPHILS 2.1 % (0-7); HEMATOCRIT 33.1 % (42.0-54.0); IMMATURE GRANULOCYTES 0.5 % (0-5); MCH 31.6 pg (26.0-34.0); MCHC 33.2 g/dL (31.0-37.0); MCV 95.1 fL (80.0-100.0); MEAN PLATELET VOLUME 9.8 fL (7.4-10.4); MONOCYTES 11.8 % (2-11); NEUTROPHILS 74.4 % (40-80); PLATELET COUNT 180 10x3/uL (130-400); RBC 3.48 10x6/uL (4.20-6.10); RDW 12.9 % (11.5-14.5); WBC 8.7 10x3/uL (4.8-10.8)
[2019-02-17] MEDS ORDERED: CATAPRES0.1 MG PO (07:51)
[2019-02-17] MEDS ORDERED: URISPAS100 MG PO (07:52)
[2019-02-17] MEDS ORDERED: ERYTHROMYCIN E400 MG PO (07:53)
[2019-02-17 07:56] LABS: CALC OSMOLALITY 277 mosm/kg (275-300); CALCIUM 8.3 mg/dL (8.5-10.1); CHLORIDE - SERUM 105 mmol/L (98-107); CREATININE - SERUM 0.6 mg/dL (0.6-1.3); GLUCOSE 112 mg/dL (74-106); POTASSIUM - SERUM 3.5 mmol/L (3.5-5.1); SODIUM 139 mmol/L (136-145); UREA NITROGEN 10 mg/dL (7-18); VANCOMYCIN - TROUGH 5.5 ug/mL (10.0-20.0); eGFR NON AFRICAN AMERICAN > 90 mL/min (90-120)
--- NOTE | 2019-02-17 08:25 | MORECARE ---
CASE MANAGEMENT DISCHARGE SUMMARY PATIENT: MONO MENSAH UNIT: [id number] ADM DATE: 02/14/19 AGE: 73 : 47 SEX: M ROOM/BED: D.2231 AUTHOR: JOSEPH RÍOS PHYSICIAN: REFERRING PHYSICIAN: LAZARO BATISTA MD DATE OF SERVICE: 02/17/19 Discharge Plan Patient Name: MONO MENSAH Facility: [facility]:[place] : 1945 Planned Disposition: Home with Home Health Anticipated Discharge Date: 02/17/19 Discharge Date: Expected LOS: 3 Initial Reviewer: [email or web address] Initial Review Date: 02/17/2019 Generated: 02/17/19 9:24 am Patient Name: MONO MENSAH Page [id number] at 0825 All edits/amendments must be made on the electronic document DICTATION DATE: 02/17/19823 COMMISSIONER OF INTERNAL REVENUE: PAOLO 02/17/19823 RPT#: [id number] DC DATE: STATUS: ADM IN [facility] [address] [place] [address] END OF REPORT
--- NOTE | 2019-02-17 08:31 | MORECARE ---
CASE MANAGEMENT DISCHARGE SUMMARY PATIENT: MONO DUMONT UNIT: [id number] ADM DATE: 02/14/19 AGE: 73 : 47 SEX: M ROOM/BED: D.2231 AUTHOR: JOSEPH RÍOS PHYSICIAN: REFERRING PHYSICIAN: LAZARO BATISTA MD DATE OF SERVICE: 02/17/19 Discharge Plan Patient Name: MONO DUMONT [facility] [facility] 1945 Planned Disposition: Home with Home Health Anticipated Discharge Date: 02/17/19 Discharge Date: Expected LOS: 3 Initial Reviewer: [email or web address] Initial Review Date: 02/17/2019 Generated: 02/17/19 9:31 am DCPIA - Discharge Planning Initial Assessment Updated by [email or web address]: Cristal Worrell on 02/17/19 8:28 am * Is the patient Alert and Oriented? Yes * PCP Paradise Cid at Dr. Cota's office * [facility] * Preadmission Environment Home with Family * ADLs Partial Dependent * Partial ADLs (Assistance needed) Ambulation * Equipment Cane Nebulizer Other Oxygen * Other Equipment Trilogy portable oxygen * List name and contact numbers for known caregivers / representatives who currently or will assist patient after discharge: Danni Dumont - spouse - [phone] * Verbal permission to speak to the caregivers and representatives has been obtained from the patient. Yes * Community resources currently utilized Home Health * Please name any agencies selected above. [facility] for trilogy and oxygen supplies * Additional services required to return to the preadmission environment? No * Can the patient safely return to the preadmission environment? Yes * Has this patient been hospitalized within the prior 30 days at any hospital? Yes Last DP export: 02/17/19 7:25 a Patient Name: MONO DUMONT Page [phone] at 0831 All edits/amendments must be made on the electronic document DICTATION DATE: 02/17/19830 TECHNICIAN SEMICONDUCTOR DEVELOPMENT: PAOLO 02/17/19830 RPT#: [id number] DC DATE: STATUS: ADM IN [facility] [address] [place] [address] END OF REPORT
--- NOTE | 2019-02-17 08:38 | MORECARE ---
CASE MANAGEMENT DISCHARGE SUMMARY PATIENT: MONO DUMONT UNIT: [id number] ADM DATE: 02/14/19 AGE: 73 : 47 SEX: M ROOM/BED: D.2231 AUTHOR: JOSEPH RÍOS PHYSICIAN: REFERRING PHYSICIAN: LAZARO BATISTA MD DATE OF SERVICE: 02/17/19 Discharge Plan Patient Name: MONO DUMONT Facility: [facility]:[place] : 1945 Planned Disposition: Home with Home Health Anticipated Discharge Date: 02/17/19 Discharge Date: Expected LOS: 3 Initial Reviewer: [email or web address] Initial Review Date: 02/17/2019 Generated: 02/17/19 9:38 am Comments DCP- Discharge Planning Updated by [email or web address]: Cristal Worrell on 02/17/19 7:[address] Patient Name: MONO DUMONT Admission Status: ER Accout number: [id number] Admission Date: 02-14-2019 : 1945 Admission Diagnosis:URINARY TRACT INFECTION, SITE NOT SPECIFIED Attending: LAZARO BATISTA Current LOS: 3 Anticipated DC Date: 02-17-2019 Planned Disposition: Home with Home Health Primary Insurance: MEDICARE A & B Discharge Planning Comments: CM met with patient to complete initial dc planning assessment. CM educated patient on the CM role and verbal consent given by patient to complete assessment. Patient lives at home with his . At discharge patient plans to return and feels this is a safe discharge. CM discussed availability of home health, rehab services, and medical equipment. Patient is current with [facility] and would like this resumed on discharge. Spoke with Zenon and she states she informed the intake team and will get him on the schedule, clinical faxed. CM will continue to follow and will assist as needed with dc plans/needs. Salesperson [employer]: Cristal Worrell DCPIA - Discharge Planning Initial Assessment Updated by [email or web address]: Cristal Worrell on 02/17/19 8:28 am * Is the patient Alert and Oriented? Yes * PCP Paradise Cid at Dr. Cota's office * [facility] * Preadmission Environment Home with Family * ADLs Partial Dependent * Partial ADLs (Assistance needed) Ambulation * Equipment Cane Nebulizer Other Oxygen * Other Equipment Trilogy portable oxygen * List name and contact numbers for known caregivers / representatives who currently or will assist patient after discharge: Danni Dumont - spouse - [phone] * Verbal permission to speak to the caregivers and representatives has been obtained from the patient. Yes * Community resources currently utilized Home Health * Please name any agencies selected above. [facility] for trilogy and oxygen supplies * Additional services required to return to the preadmission environment? No * Can the patient safely return to the preadmission environment? Yes * Has this patient been hospitalized within the prior 30 days at any hospital? Yes External Providers External Provider: [facility] Next Contact Date: Service Request Date: Service Type: Resolution: Reviewer: Comments: Coverage Notice Reviewer: [email or web address] Wrorell Notice Issued Date-Time: 02/17/2019 8:31 Notice Type: IM Discharge Notice Notice Delivered To: Family Member Relationship to Patient: Spouse Painter Set Name: Danni Dumont Delivery Method: HAND - Hand Delivered Vero Days: Prior Verbal Notification: Recipient Understood Notice: Yes Recipient Signature: Yes Med Rec Note Co-signed by Attending: Coverage Notice Comment: IMM explained, signed, given, copy placed in MR Reviewer: [id number] Deion Worrell Notice Issued Date-Time: 02/17/2019 8:31 Notice Type: Patient Choice Letter Notice Delivered To: Family Member Relationship to Patient: Spouse Painter Set Name: Danni Dumont Delivery Method: HAND - Hand Delivered Vero Days: Prior Verbal Notification: Recipient Understood Notice: Yes Recipient Signature: Yes Med Rec Note Co-signed by Attending: Coverage Notice Comment: SIENA for [facility] Last DP export: 02/17/19 7:31 a Patient Name: MONO DUMONT Page 50111 at 0838 All edits/amendments must be made on the electronic document DICTATION DATE: 02/17/19837 WET MACHINE TENDER: PAOLO 02/17/19837 RPT#: [id number] DC DATE: STATUS: ADM IN [facility] [address] [place] [address] END OF REPORT
[2019-02-17 09:03] VITALS: BP 197/83
--- NOTE | 2019-02-17 09:31 | NUR ---
PT REFUSES MEDS DUE TO PENDING DISCHARGE.
--- NOTE | 2019-02-17 09:53 | NUR ---
GUAJARDO CATHETER REMOVED. 10ML REMOVED FROM STABILIZATION BALLOON PRIOR TO CATHETER REMOVAL. 450 ML DARK YELLOW URINE EMPTIED FROM COLLECTION BAG. MEATUS CLEANED. 16FR GUAJARDO CATHETER INSERTED USING STERILE TECHNIQUE. 10ML NS USED TO INFALTE STABILIZATION BALLOON. STAT LOCK PLACED ON RIGHT LEFT AND USED FRO CATHETER STABILIZATION AND PROTECTION. PT EDUCATED ON PROPER CARE/CLEANING OF CATHETER INSERTION SITE. DISCHARGE PAPERS COVERED WITH PT AND PT . ALL QUESTIONS ANSWERED. PT AND PT DENY FURTHER QUESTIONS/CONCERNS/COMMENTS AT THIS TIME. ALL DISCHARGE PAPERS SIGNED. PIV TO RIGHT WRIST REMOVED WITH CATHETER TIP INTACT. DRESSING APPLIED. PT TO NOTIFY NURSE WHEN READY FROM TRANSPORT FROM ROOM. PT DENIES FURTHER QUESTIONS/CONCERNS/NEEDS AT THIS TIME. BED IS IN THE LOWEST POSITION. CALL LIGHT AND BEDSIDE TABLE ARE WITHIN REACH. SIDE RAILS X 2.
--- NOTE | 2019-02-17 10:15 | NUR ---
PT TRANSPORTED FROM ROOM VIA WHEELCHAIR BY VOLUNTEER STAFF. PT DENIES FURTHER QUESTIONS/CONCERNS/NEEDS AT THIS TIME.
--- NOTE | 2019-02-18 10:49 | MORECARE ---
CASE MANAGEMENT DISCHARGE SUMMARY PATIENT: MONO DUMONT UNIT: [id number] ADM DATE: 02/14/19 AGE: 73 : 47 SEX: M ROOM/BED: D.2231 AUTHOR: JOSEPH RÍOS PHYSICIAN: REFERRING PHYSICIAN: LAZARO BATISTA MD DATE OF SERVICE: 02/18/19 Discharge Plan Patient Name: MONO DUMONT Facility: [facility]:[place] : 1945 Planned Disposition: Home with Home Health Anticipated Discharge Date: 02/17/19 Discharge Date: 02/17/2019 Expected LOS: 3 Initial Reviewer: [email or web address] Initial Review Date: 02/17/2019 Generated: 02/18/19 11:49 am Comments DCP- Discharge Planning Updated by [email or web address]: Cristal Worrell on 02/17/19 7:[address] Patient Name: MONO DUMONT Admission Status: ER Accout number: [id number] Admission Date: 02-14-2019 : 1945 Admission Diagnosis:URINARY TRACT INFECTION, SITE NOT SPECIFIED Attending: LAZARO BATISTA Current LOS: 3 Anticipated DC Date: 02-17-2019 Planned Disposition: Home with Home Health Primary Insurance: MEDICARE A & B Discharge Planning Comments: CM met with patient to complete initial dc planning assessment. CM educated patient on the CM role and verbal consent given by patient to complete assessment. Patient lives at home with his . At discharge patient plans to return and feels this is a safe discharge. CM discussed availability of home health, rehab services, and medical equipment. Patient is current with [facility] and would like this resumed on discharge. Spoke with Zenon and she states she informed the intake team and will get him on the schedule, clinical faxed. CM will continue to follow and will assist as needed with dc plans/needs. Rrts: Cristal Worrell DCPIA - Discharge Planning Initial Assessment Updated by [id number]: Cristal Worrell on 02/17/19 8:28 am * Is the patient Alert and Oriented? Yes * PCP Paradise Cid at Dr. Cota's office * [facility] * Preadmission Environment Home with Family * ADLs Partial Dependent * Partial ADLs (Assistance needed) Ambulation * Equipment Cane Nebulizer Other Oxygen * Other Equipment Trilogy portable oxygen * List name and contact numbers for known caregivers / representatives who currently or will assist patient after discharge: Danni Dumont - spouse - [phone] * Verbal permission to speak to the caregivers and representatives has been obtained from the patient. Yes * Community resources currently utilized Home Health * Please name any agencies selected above. [facility] for trilogy and oxygen supplies * Additional services required to return to the preadmission environment? No * Can the patient safely return to the preadmission environment? Yes * Has this patient been hospitalized within the prior 30 days at any hospital? Yes Coverage Notice Reviewer: [id number] Deion Worrell Notice Issued Date-Time: 02/17/2019 8:31 Notice Type: IM Discharge Notice Notice Delivered To: Family Member Relationship to Patient: Spouse Horses Or Mules Teamster Name: Danni Dumont Delivery Method: HAND - Hand Delivered Vero Days: Prior Verbal Notification: Recipient Understood Notice: Yes Recipient Signature: Yes Med Rec Note Co-signed by Attending: Coverage Notice Comment: IMM explained, signed, given, copy placed in MR Reviewer: [id number] Worrell Notice Issued Date-Time: 02/17/2019 8:31 Notice Type: Patient Choice Letter Notice Delivered To: Family Member Relationship to Patient: Spouse Horses Or Mules Teamster Name: Danni Dumont Delivery Method: HAND - Hand Delivered Vero Days: Prior Verbal Notification: Recipient Understood Notice: Yes Recipient Signature: Yes Med Rec Note Co-signed by Attending: Coverage Notice Comment: SIENA for [facility] Last DP export: 02/17/19 7:38 a Patient Name: MONO DUMONT Page [phone] at 1049 All edits/amendments must be made on the electronic document DICTATION DATE: 02/18/19 1048 MEDICAL PRACTICE ASSISTANT: PAOLO 02/18/19 1048 RPT#: [id number] DC DATE:02/17/19 STATUS: DIS IN [facility] [address] [place] [address] END OF REPORT
== END 2019-02-17 11:35 | disposition home health service (06) | DRG 698 ==
LOC: D.ER 04:20 → D.MS 06:47
PROVIDERS: Family Medicine; ADMIT Family Medicine; ATTEND Family Medicine
DX: T83.511A Infection and inflammatory reaction due to indwelling urethral catheter, initial encounter (principal); G93.41 Metabolic encephalopathy; G93.49 Other encephalopathy; N17.9 Acute kidney failure, unspecified; N13.9 Obstructive and reflux uropathy, unspecified; N39.0 Urinary tract infection, site not specified; J43.9 Emphysema, unspecified; E86.0 Dehydration; N18.9 Chronic kidney disease, unspecified; I95.9 Hypotension, unspecified; B95.7 Other staphylococcus as the cause of diseases classified elsewhere; I12.9 Hypertensive chronic kidney disease with stage 1 through stage 4 chronic kidney disease, or unspecified chronic kidney disease; I25.10 Atherosclerotic heart disease of native coronary artery without angina pectoris; M19.90 Unspecified osteoarthritis, unspecified site

== ENCOUNTER 2019-08-25 15:42 | Inpatient (IN) | payer MEDICARE ==
[~2019-08-25] VITALS: Ht 152.4 cm; Wt 95.5 kg
[~2019-08-25 15:42] MED LIST changes: +ERYTHROMYCIN E400 MG PO; +URISPAS100 MG PO; +VITAMIN D10000 UNI1 PO
[2019-08-25 16:31] LABS: BASOPHILS 0.3 % (0-2); EOSINOPHILS 2.6 % (0-7); HEMATOCRIT 35.5 % (42.0-54.0); HEMOGLOBIN 10.8 g/dL (13.5-17.5); IMMATURE GRANULOCYTES 0.4 % (0-5); LYMPHOCYTES 11.2 % (15-50); MCH 30.2 pg (26.0-34.0); MCHC 30.4 g/dL (31.0-37.0); MCV 99.2 fL (80.0-100.0); MEAN PLATELET VOLUME 9.6 fL (7.4-10.4); MONOCYTES 8.2 % (2-11); NEUTROPHILS 77.3 % (40-80); RBC 3.58 10x6/uL (4.20-6.10); RDW 13.6 % (11.5-14.5); WBC 9.3 10x3/uL (4.8-10.8)
[2019-08-25 16:35] LABS: PLATELET COUNT 224 10x3/uL (130-400)
[2019-08-25 16:40] LABS: PROTIME 13.1 SECONDS (11.6-15.0)
[2019-08-25 16:43] LABS: CALC OSMOLALITY 284 mosm/kg (275-300); CALCIUM 8.6 mg/dL (8.5-10.1); CARBON DIOXIDE 25.6 mmol/L (21.0-32.0); CHLORIDE - SERUM 102 mmol/L (98-107); CREATININE - SERUM 2.3 mg/dL (0.6-1.3); GLUCOSE 131 mg/dL (74-106); POTASSIUM - SERUM 4.2 mmol/L (3.5-5.1); SODIUM 138 mmol/L (136-145); UREA NITROGEN 32 mg/dL (7-18); eGFR NON AFRICAN AMERICAN 30 mL/min (90-120)
[2019-08-25 17:00] LABS: ALBUMIN 3.4 g/dL (3.4-5.0); ALKALINE PHOSPHATASE 73 U/L (30-120); ALT (SGPT) 17 U/L (10-68); BILIRUBIN - TOTAL 0.34 mg/dL (0.2-1.3); CREATINE KINASE 296 UL (21-232); PROTEIN - SERUM 6.8 g/dL (6.4-8.2); THYROID STIMULATING HORMONE 1.74 uIU/mL (0.36-3.74); TROPONIN-I < 0.017 ng/mL (0.000-0.060)
[2019-08-25 19:32] VITALS: BP 151/91
--- NOTE | 2019-08-25 19:33 | NUR ---
REPORT TO AUDREY HOLLIDAY
[2019-08-25 19:38] LABS: UDS - AMPHET NEGATIVE QUAL (NEGATIVE); UDS - BARB NEGATIVE QUAL (NEGATIVE); UDS - BENZO NEGATIVE QUAL (NEGATIVE); UDS - COCAINE NEGATIVE QUAL (NEGATIVE); UDS - OPIATE POSITIVE QUAL (NEGATIVE); UDS - PCP NEGATIVE QUAL (NEGATIVE); UDS - THC NEGATIVE QUAL (NEGATIVE)
[2019-08-25 19:39] LABS: BILIRUBIN NEGATIVE (NEGATIVE); GLUCOSE NEGATIVE (NEGATIVE); KETONE NEGATIVE (NEGATIVE); NITRITE NEGATIVE (NEGATIVE); SPECIFIC GRAVITY 1.015 (1.005-1.020); UROBILINOGEN NORMAL (NORMAL)
--- NOTE | 2019-08-25 23:07 | NUR ---
RECEIVED BEDSIDE REPORT. PATIENT IS LETHARGIC, EASY TO AROUSE. RESPIRATIONS ARE EVEN AND UNLABORED. PATIENT IS SNORING. WENT THROUGH MEDICATIONS AND PATIENT HISTORY WITH DAUGHTER. NO S/S OF DISTRESS. NO C/O PAIN. PATIENT HAS A GUAJARDO THAT WAS PLACED IN ER. CALL LIGHT WITHIN REACH. WILL CPOC.
[2019-08-25 23:59] VITALS: Ht 152.4 cm; Wt 95.5 kg
[2019-08-26] VITALS: BP 141/95
[2019-08-26 04:00] VITALS: BP 171/60
[2019-08-26 05:50] LABS: BASOPHILS 0.6 % (0-2); EOSINOPHILS 4.4 % (0-7); HEMATOCRIT 35.7 % (42.0-54.0); HEMOGLOBIN 10.8 g/dL (13.5-17.5); IMMATURE GRANULOCYTES 0.7 % (0-5); LYMPHOCYTES 17.3 % (15-50); MCHC 30.3 g/dL (31.0-37.0); MCV 99.2 fL (80.0-100.0); MEAN PLATELET VOLUME 9.8 fL (7.4-10.4); MONOCYTES 10.6 % (2-11); NEUTROPHILS 66.4 % (40-80); PLATELET COUNT 222 10x3/uL (130-400); RDW 13.8 % (11.5-14.5); WBC 7.1 10x3/uL (4.8-10.8)
[2019-08-26 06:30] LABS: ALBUMIN 3.3 g/dL (3.4-5.0); ANION GAP 11.9 mmol/L (8-16); BILIRUBIN - TOTAL 0.34 mg/dL (0.2-1.3); CALCIUM 8.4 mg/dL (8.5-10.1); CARBON DIOXIDE 27.1 mmol/L (21.0-32.0); PROTEIN - SERUM 6.3 g/dL (6.4-8.2)
[2019-08-26 06:35] LABS: CREATININE - SERUM 1.3 mg/dL (0.6-1.3)
[2019-08-26 09:08] VITALS: BP 165/79
[2019-08-26 12:57] VITALS: BP 168/60
--- NOTE | 2019-08-26 13:59 | NUR ---
I have reviewed this patient and I concur with the Shift Assessment completed by the Licensed Practical Nurse today this shift.
--- NOTE | 2019-08-26 15:39 | HP ---
PATIENT: MONO MENSAH MEDICAL RECORD: [id number] ACCOUNT: [id number] LOCATION:[place] [id number] : [birth year] ADMISSION DATE: 08/25/19 PCP: NDA[facility] SHORT HISTORY AND PHYSICAL EXAMINATION DATE OF ADMISSION: 08/25/2019 CHIEF COMPLAINT: Confusion, weakness, decreased urinary output. HISTORY OF PRESENT ILLNESS: This is a 74-year-old male with history of prostate cancer and mild chronic kidney disease, who has several admissions into the hospital with similar complaints - sleepiness, confusion, fatigue, weakness, and decreased urinary output, these are the symptoms the patient has along with low back pain anytime he gets acute renal failure, his states that the back pain gets worse the day before his other symptoms presents. When he came in last night to the ER, he was confused. His vital signs were stable. His BUN was 32, creatinine was 2.3 (baseline creatinine around 1.3 to 1.4). He is admitted for acute kidney injury on chronic kidney disease and weakness and confusion. PAST MEDICAL HISTORY: He has psoriatic arthritis followed by rheumatology at [facility]. He has hypertension, history of prostate cancer, sleep apnea on BiPAP. He has COPD, hypertension, coronary artery disease, reflux and hyperlipidemia. PAST SURGICAL HISTORY: He has had a TURP. He has had angioplasties. He has had cervical fusion. He has had carpal tunnel release and pacemaker placement. ALLERGIES: HE IS INTOLERANT TO STATINS. HOME MEDICATIONS: Include sulfasalazine 1000 mg twice a day, baclofen 10 mg t.i.d., Flomax 0.4 mg once a day, DuoNeb via nebulizer every 4 to 6 hours as needed, olmesartan 40 mg once a day, diltiazem 240 mg once a day, clonidine 0.1 p.r.n. elevated blood pressure, morphine ER 15 mg twice a day, venlafaxine 75 mg twice a day, Macdoel 7.5/325 twice a day, gabapentin 300 mg at bedtime, furosemide 20 mg p.r.n. swelling, Zofran 4 mg every 4 to 6 hours p.r.n. nausea, pantoprazole 40 mg twice a day, Plaquenil 200 mg once a day. HABITS: Former smoker, no alcohol or drugs. SOCIAL HISTORY: Retired, and lives with his . FAMILY HISTORY: Mother had rheumatoid arthritis. Sister with rheumatoid arthritis. REVIEW OF SYSTEMS: GENERAL: No major weight changes. HEENT: No particular sinus or allergy problems. RESPIRATORY: Has COPD and sleep apnea, on BiPAP. He is followed by a [place] russet repairer. CARDIAC: History of coronary artery disease, arrhythmias, followed by [facility]. GASTROINTESTINAL: Has reflux. GENITOURINARY: Has difficulty urinating and supposed to be on a routine self-catheterization, although he does not do it on schedule. He does it whenever his states he has been doing it frequently likely. He has a HISTORY AND PHYSICAL [id number] MONO MENSAH history of prostate cancer and has completed chemo and he has had a TURP. MUSCULOSKELETAL: History of psoriatic arthritis followed at [facility] rheumatology. NEUROLOGIC: No migraines or seizures. PSYCHIATRIC: He has depression and is on medicines for that. PHYSICAL EXAMINATION: VITAL SIGNS: He has been afebrile since he was seen in the ER. Heart rate in the 60s, respirations 14 to 20, last blood pressure 171/60, O2 sats 95%. GENERAL: At this time, he is awake and alert. He does not appear in any acute distress. HEENT: Grossly within normal limits. NECK: Supple. HEART: Regular rate and rhythm. LUNGS: Clear. ABDOMEN: Soft, flat, nontender. EXTREMITIES: Trace if any edema. NEUROLOGIC: He is awake and alert and is in no distress at this time; however, in the ER last night he was confused and lethargic. LABORATORY DATA: Yesterday on 08/25/2019, in the ER, his basic metabolic panel was okay except BUN was 32, creatinine was 2.3. Ammonia level was 1. Troponin is normal. Thyroid is normal. CBC is normal. Repeat CBC this morning, his hemoglobin was 10.8. Repeat BMP this morning, his BUN is down to 27 and creatinine down to 1.3. He is awake and alert. His urinalysis is normal. His urine drug screen is positive for opiates, which he is on. ASSESSMENT: 1. Acute kidney injury on chronic kidney disease, with baseline creatinine around 1.3 to 1.4. 2. Confusion and weakness. PLAN: I spoke with on the phone. She talked to him just before I talked to her. She states that he sounds like he appears back in his normal mental status. He had a Morales catheter placed last night in the ER. We will get that back out. He does not want to keep it. He does have an appointment to see Dr. Man; however, that appointment has been postponed due to the COVID-19 problem going on right now. We will probably discharge later today after rehab walks him and I discussed this with his and she is in agreement. TRANSINT:[id number] Voice Confirmation ID: [id number] DOCUMENT ID: [id number] CHUYITA ROSALES MD at 1539 CC: [id number] DICTATION DATE: 08/26/19 1010 COUNTER ROLLER: 08/26/19 1103 ADM IN [place] [id number] [place] [id number]
--- NOTE | 2019-08-26 16:41 | NUR ---
PT DISCHARGED HOME VIA WHEELCHAIR. GUAJARDO CATH REMOVED. STAT DOMINICK REMOVED. PIV REMOVED WITH CATHETER TIP FULLY INTACT. PT SIGNED PROPER DISCHARGE INSTRUCTIONS AND REMOVED ALL VALUABLES FROM THE ROOM.
--- NOTE | 2019-08-27 08:33 | MORECARE ---
CASE MANAGEMENT DISCHARGE SUMMARY PATIENT: MONO MENSAH UNIT: [id number] ADM DATE: 08/25/19 AGE: 74 : 47 SEX: M ROOM/BED: D.2113 AUTHOR: JOSEPH RÍOS PHYSICIAN: REFERRING PHYSICIAN: NADER SHORT MD DATE OF SERVICE: 08/27/19 Discharge Plan Patient Name: MONO MENSAH Facility: [facility]:[place] : 1945 Planned Disposition: Home Anticipated Discharge Date: 08/26/19 Discharge Date: 08/26/2019 Expected LOS: 1 Initial Reviewer: [email or web address] Initial Review Date: 08/27/2019 Generated: 08/27/19 9:32 am Patient Name: MONO MENSAH Page 68180 at 0833 All edits/amendments must be made on the electronic document DICTATION DATE: 08/27/19831 ELEMENTARY ESL TEACHER: PAOLO 08/27/19831 RPT#: [id number] DC DATE:08/26/19 STATUS: DIS IN [facility] [address] [place] [address] END OF REPORT
--- NOTE | 2019-08-27 08:40 | MORECARE ---
CASE MANAGEMENT DISCHARGE SUMMARY PATIENT: MONO MENSAH UNIT: [id number] ADM DATE: 08/25/19 AGE: 74 : 47 SEX: M ROOM/BED: D.2113 AUTHOR: KHUSHBU,DOC PHYSICIAN: REFERRING PHYSICIAN: NADER SHORT MD DATE OF SERVICE: 08/27/19 Discharge Plan Patient Name: MONO MENSAH Facility: [facility]:[place] : 1945 Planned Disposition: Home Anticipated Discharge Date: 08/26/19 Discharge Date: 08/26/2019 Expected LOS: 1 Initial Reviewer: [email or web address] Initial Review Date: 08/27/2019 Generated: 08/27/19 9:40 am Comments DCP- Discharge Planning Updated by [email or web address]: Tex Lara on 08/27/19 7:[address] Patient Name: MONO MENSAH Admission Status: ER Accout number: [id number] Admission Date: 08-25-2019 : 1945 Admission Diagnosis: Attending: NADER SHORT Current LOS: 1 Anticipated DC Date: 08-26-2019 Planned Disposition: Home Primary Insurance: MEDICARE A & B Discharge Planning Comments: CM REVIEWED CHART, PT DISCHARGED HOME LAST NIGHT WITH HOME HEALTH ORDER IF PT NEEDS IT. CM CALLED PT'S HOME, . SAMUEL, SPOUSE ANSWERED, REPORTS PT IS NOT HOME AND IS "DRIVING". CM DISCUSSED AVAILABILITY OF HOME HEALTH TO ASSIST WITH TEACHING OF SELF CATH. SAMUEL REPORTS PT IS ABLE TO DO THIS HIMSELF AND DID IT THIS MORNING PRIOR TO LEAVING THE HOUSE. SAMUEL DENIES DISCHARGE NEEDS AT THIS TIME. Bottom Stop Attacher: Tex Lara DCPIA - Discharge Planning Initial Assessment Updated by [id number]: Tex Lara on 08/27/19 8:32 am * How many steps to enter\\exit or inside your home? NONE * PCP DR. SHORT / [facility] * Pharmacy [facility] * Preadmission Environment Home with Family * ADLs Independent * Equipment Cane Nebulizer Other Oxygen * Other Equipment HOME AND PORTABLE OXYGEN TRILOGY * List name and contact numbers for known caregivers / representatives who currently or will assist patient after discharge: SAMUEL MENSAH, SPOUSE, * Verbal permission to speak to the caregivers and representatives has been obtained from the patient. N/A * Community resources currently utilized None * Please name any agencies selected above. NONE * Additional services required to return to the preadmission environment? No * Can the patient safely return to the preadmission environment? Yes * Has this patient been hospitalized within the prior 30 days at any hospital? No Last DP export: 08/27/19 7:33 a Patient Name: MONO MENSAH Page 57494 at 0840 All edits/amendments must be made on the electronic document DICTATION DATE: 08/27/19839 FIELD REPRESENTATIVES DIRECTOR: PAOLO 08/27/19839 RPT#: [id number] DC DATE:08/26/19 STATUS: DIS IN [facility] [address] [place] [address] END OF REPORT
== END 2019-08-26 16:41 | disposition home or self-care (01) | DRG 682 ==
LOC: D.ER 15:42 → D.M2 21:45
PROVIDERS: Family Medicine; ADMIT Family Medicine; ATTEND Family Medicine
DX: N17.9 Acute kidney failure, unspecified (principal); G93.41 Metabolic encephalopathy; I13.0 Hypertensive heart and chronic kidney disease with heart failure and stage 1 through stage 4 chronic kidney disease, or unspecified chronic kidney disease; N18.9 Chronic kidney disease, unspecified; J44.9 Chronic obstructive pulmonary disease, unspecified; I25.10 Atherosclerotic heart disease of native coronary artery without angina pectoris; K21.9 Gastro-esophageal reflux disease without esophagitis; E78.5 Hyperlipidemia, unspecified; I50.9 Heart failure, unspecified; N40.1 Benign prostatic hyperplasia with lower urinary tract symptoms; R33.8 Other retention of urine; Z95.0 Presence of cardiac pacemaker

== ENCOUNTER 2019-09-19 10:58 | Observation (INO) | payer MEDICARE ==
[~2019-09-19] VITALS: Ht 165.1 cm; Wt 104.5 kg
[2019-09-19 11:57] LABS: BASOPHILS 0.3 % (0-2); EOSINOPHILS 4.3 % (0-7); HEMATOCRIT 36.5 % (42.0-54.0); HEMOGLOBIN 11.1 g/dL (13.5-17.5); IMMATURE GRANULOCYTES 0.5 % (0-5); LYMPHOCYTES 15.9 % (15-50); MCH 29.6 pg (26.0-34.0); MCHC 30.4 g/dL (31.0-37.0); MCV 97.3 fL (80.0-100.0); MEAN PLATELET VOLUME 9.5 fL (7.4-10.4); MONOCYTES 9.4 % (2-11); NEUTROPHILS 69.6 % (40-80); PLATELET COUNT 239 10x3/uL (130-400); RBC 3.75 10x6/uL (4.20-6.10); RDW 14.1 % (11.5-14.5); WBC 8.7 10x3/uL (4.8-10.8)
[2019-09-19 12:30] LABS: CALC OSMOLALITY 286 mosm/kg (275-300); CALCIUM 8.6 mg/dL (8.5-10.1); CARBON DIOXIDE 26.1 mmol/L (21.0-32.0); CHLORIDE - SERUM 101 mmol/L (98-107); CREATININE - SERUM 2.5 mg/dL (0.6-1.3); GLUCOSE 110 mg/dL (74-106); POTASSIUM - SERUM 4.3 mmol/L (3.5-5.1); SODIUM 139 mmol/L (136-145); UREA NITROGEN 36 mg/dL (7-18); eGFR NON AFRICAN AMERICAN 27 mL/min (90-120)
[2019-09-19 12:47] LABS: ALBUMIN 3.8 g/dL (3.4-5.0); ALKALINE PHOSPHATASE 72 U/L (30-120); ALT (SGPT) 23 U/L (10-68); BILIRUBIN - TOTAL 0.37 mg/dL (0.2-1.3); CKMB 20.7 U/L (0.0-3.6); PROTEIN - SERUM 7.2 g/dL (6.4-8.2)
--- NOTE | 2019-09-19 12:47 | NUR ---
GUAJARDO CATH PLACED IN PT. 300CC OUT. PT KEVIN. WELL.
[2019-09-19 12:48] LABS: CREATINE KINASE 984 UL (21-232); TROPONIN-I < 0.017 ng/mL (0.000-0.060)
[2019-09-19 12:58] LABS: BILIRUBIN NEGATIVE (NEGATIVE); GLUCOSE NEGATIVE (NEGATIVE); KETONE NEGATIVE (NEGATIVE); NITRITE NEGATIVE (NEGATIVE); UROBILINOGEN NORMAL (NORMAL)
--- NOTE | 2019-09-19 14:12 | NUR ---
RECEIVED PT TO ROOM 2140 VIA STRETCHER, PT WAS ABLE TO TRANSFERS SELF FROM THE STRETCHER TO BED. PT VERY SLEEPY BUT EASILY AROUSES TO VOICE. ORIENTED PT TO ROOM AND CALL LIGHT. WILL ASSSESS PT AND START PLAN OF CARE.
[2019-09-19] MEDS ORDERED: HYDROCODON-ACE1 EA10 PO (14:38)
[2019-09-19 14:42] VITALS: BP 126/66; Ht 165.1 cm; Wt 104.5 kg
--- NOTE | 2019-09-19 19:33 | NUR ---
ASSISTED WITH NEEDS OF COMFORT AND WATER ALL SO SET UP CPAP MACHINE
[2019-09-19 20:00] VITALS: BP 109/55
--- NOTE | 2019-09-19 20:30 | NUR ---
PT COMPLAINED OF NAUSEA LUNGS REMAIN CLEAR NO LABORED RESP
--- NOTE | 2019-09-19 23:08 | HP ---
PATIENT: MONO MENSAH MEDICAL RECORD: [id number] ACCOUNT: [id number] LOCATION:[address] : [birth year] ADMISSION DATE: 09/19/19 PCP: NADER SHORT HISTORY AND PHYSICAL EXAMINATION CHIEF COMPLAINT: Urinary difficulties and confusion. HISTORY OF PRESENT ILLNESS: A 74-year-old male with a history of prostate cancer, mild chronic kidney disease, has had several admissions into the hospital with similar complaints, urinary difficulty, and when this happens, he starts becoming more confused. This started last night. The patient states he did not sleep well last night. In the ER today, his vital signs were stable. His BUN was 36, creatinine up to 2.5 and baseline creatinine is around 1.3 to 1.4. He is admitted. PAST MEDICAL HISTORY: Hypertension, history of prostate cancer, psoriatic arthritis, [facility]. He has sleep apnea on BiPAP. He has COPD, coronary artery disease, reflux, and hyperlipidemia. He has been scheduled to see Dr. Man for his urinary problems. However, that has been postponed due to the pandemic. He was just admitted on 08/25/2019 for similar problems and he has had other hospitalizations for this as well. PAST SURGICAL HISTORY: He has had a TURP. He has had angioplasties. He has had a cervical fusion. He has had carpal tunnel release and a pacemaker placement. ALLERGIES: HE IS INTOLERANT TO STATINS. HOME MEDICATIONS: Include sulfasalazine 1000 mg twice a day, baclofen 10 mg t.i.d., DuoNeb q.6 hours p.r.n., Flomax 0.4 mg at bedtime, diltiazem 240 mg daily, olmesartan 40 mg daily, clonidine 0.1 p.r.n. elevated blood pressure, gabapentin 300 mg at bedtime, hydrocodone 10/325 q.8 hours p.r.n. pain, morphine sulfate 15 mg q.12 hours, venlafaxine 75 mg twice a day, furosemide 20 mg p.r.n. swelling, Zofran 4 mg q.4-6 hours p.r.n. nausea, pantoprazole 40 mg twice a day, and Plaquenil 200 mg once a day. HABITS: Former smoker. No alcohol or drugs. SOCIAL HISTORY: Retired, lives with his . FAMILY HISTORY: Mother had rheumatoid arthritis. Sister with rheumatoid arthritis. REVIEW OF SYSTEMS: Generally hard to gather from the patient as he is somnolent, but chart review shows no major weight changes. HEENT: No particular sinus or allergy problems. RESPIRATORY: He has COPD and sleep apnea, on BiPAP. He is followed by pulmonology at [place]. CARDIAC: Has history of coronary artery disease and arrhythmias, followed by [facility]. GASTROINTESTINAL: Has reflux. GENITOURINARY: Difficulty urinating and supposedly on a routine self-catheterization, although it was felt he may not do that quite regularly. He has a history of prostate cancer and has had a TURP. He has had chemo. HISTORY AND PHYSICAL [id number] MONO MENSAH MUSCULOSKELETAL: History of psoriatic arthritis [facility] by [facility]. NEUROLOGIC: No migraines or seizures. PHYSICAL EXAMINATION: VITAL SIGNS: Temperature 97.8, pulse 66, respirations 20, blood pressure 122/50, O2 sat 94%. GENERAL: He is somnolent. He will awaken and say a few words and go back to sleep. HEENT: Unremarkable. NECK: Supple. HEART: Regular rate and rhythm. LUNGS: Fairly clear. ABDOMEN: Soft, nontender. EXTREMITIES: No edema. LABORATORY DATA: Urinalysis Yellow, clear urine, specific gravity 1.030. No sign of infection. CBC showed a white count of 8700, hemoglobin 11.1, and hematocrit 36.5. Basic metabolic panel is all okay except BUN 36 and creatinine 2.5. Liver functions are normal. Troponin less than 0.017. ASSESSMENT: 1. Acute kidney injury on chronic kidney disease with baseline creatinine around 1.3 to 1.4. 2. Confusion and weakness. PLAN: 1. Morales catheter is in place and we will continue Morales catheter use. 2. We will give him fluids. We will recheck kidney function and see how he is doing tomorrow and make further recommendations from there. TRANSINT:[id number] Voice Confirmation ID: [id number] DOCUMENT ID: [id number] CHUYITA ROSALES MD at 2306 CC: [id number] DICTATION DATE: 09/19/191804 CONTINUOUS MINING MACHINE OPERATOR: 09/19/19 9758 ADM IN [place] [address] [facility], [place] [address]
[2019-09-20 01:26] VITALS: BP 131/50
[2019-09-20 04:30] VITALS: BP 132/61
--- NOTE | 2019-09-20 05:17 | NUR ---
I have reviewed this patient and I concur with the Shift Assessment completed by the Licensed Practical Nurse today this shift.
[2019-09-20 06:59] LABS: BASOPHILS 0.1 % (0-2); EOSINOPHILS 3.5 % (0-7); HEMATOCRIT 35.2 % (42.0-54.0); HEMOGLOBIN 10.6 g/dL (13.5-17.5); IMMATURE GRANULOCYTES 0.3 % (0-5); LYMPHOCYTES 12.9 % (15-50); MCH 29.9 pg (26.0-34.0); MCHC 30.1 g/dL (31.0-37.0); MCV 99.2 fL (80.0-100.0); MEAN PLATELET VOLUME 9.6 fL (7.4-10.4); MONOCYTES 10.2 % (2-11); RBC 3.55 10x6/uL (4.20-6.10); RDW 14.2 % (11.5-14.5); WBC 6.8 10x3/uL (4.8-10.8)
[2019-09-20 07:00] LABS: PLATELET COUNT 183 10x3/uL (130-400)
--- NOTE | 2019-09-20 07:33 | NUR ---
ASSESSMENT DONE. DENIES NEEDS
[2019-09-20 07:38] LABS: ALBUMIN 3.1 g/dL (3.4-5.0); ALKALINE PHOSPHATASE 72 U/L (30-120); ALT (SGPT) 21 U/L (10-68); BILIRUBIN - TOTAL 0.19 mg/dL (0.2-1.3); CALC OSMOLALITY 288 mosm/kg (275-300); CARBON DIOXIDE 25.7 mmol/L (21.0-32.0); CHLORIDE - SERUM 109 mmol/L (98-107); GLUCOSE 100 mg/dL (74-106); POTASSIUM - SERUM 4.1 mmol/L (3.5-5.1); PROTEIN - SERUM 6.4 g/dL (6.4-8.2); SODIUM 142 mmol/L (136-145); UREA NITROGEN 30 mg/dL (7-18)
[2019-09-20 07:39] LABS: CKMB 11.3 U/L (0.0-3.6); CREATINE KINASE 818 UL (21-232); CREATININE - SERUM 1.1 mg/dL (0.6-1.3); eGFR NON AFRICAN AMERICAN 70 mL/min (90-120)
--- NOTE | 2019-09-20 09:07 | MORECARE ---
CASE MANAGEMENT DISCHARGE SUMMARY PATIENT: MONO DUMONT UNIT: [id number] ADM DATE: 09/19/19 AGE: 74 : 47 SEX: M ROOM/BED: D.2140 AUTHOR: JOSEPH RÍOS PHYSICIAN: REFERRING PHYSICIAN: CHUYITA ROSALES MD DATE OF SERVICE: 09/20/19 Discharge Plan Patient Name: MONO DUMONT Facility: [facility]:[place] : 1945 Planned Disposition: Home Anticipated Discharge Date: 09/20/19 Discharge Date: Expected LOS: 1 Initial Reviewer: [email or web address] Initial Review Date: 09/19/2019 Generated: 09/20/19 10:06 am Coverage Notice Reviewer: [email or web address] Deion Luis Notice Issued Date-Time: 09/20/2019 8:47 Notice Type: Medicare Outpatient Observation Notice Notice Delivered To: Patient Relationship to Patient: Self Senior Principal Name: Mono Dumont Delivery Method: HAND - Hand Delivered Vero Days: Prior Verbal Notification: Recipient Understood Notice: Yes Recipient Signature: Yes Med Rec Note Co-signed by Attending: Coverage Notice Comment: ELLINGTON signed and original provided to patient. original to chart. Patient Name: MONO DUMONT Page 57505 at 0907 All edits/amendments must be made on the electronic document DICTATION DATE: 09/20/19905 SALES ENGINEERING MANAGER: PAOLO 09/20/19905 RPT#: [id number] DC DATE: STATUS: ADM IN [facility] [address] [place] [address] END OF REPORT
[2019-09-20 09:22] VITALS: BP 157/61
--- NOTE | 2019-09-20 11:50 | NUR ---
DC GIVEN TO PT
--- NOTE | 2019-09-20 12:13 | NUR ---
DC HOME PER PERSONAL CAR
--- NOTE | 2019-09-21 08:56 | MORECARE ---
CASE MANAGEMENT DISCHARGE SUMMARY PATIENT: MONO DUMONT UNIT: [id number] ADM DATE: 09/19/19 AGE: 74 : 47 SEX: M ROOM/BED: D.2140 AUTHOR: JOSEPH RÍOS PHYSICIAN: REFERRING PHYSICIAN: CHUYITA ROSALES MD DATE OF SERVICE: 09/21/19 Discharge Plan Patient Name: MONO DUMONT [facility] : 1945 Planned Disposition: Home Anticipated Discharge Date: 09/20/19 Discharge Date: 09/20/2019 Expected LOS: 1 Initial Reviewer: [email or web address] Initial Review Date: 09/19/2019 Generated: 09/21/19 9:56 am Coverage Notice Reviewer: [email or web address] Deion Luis Notice Issued Date-Time: 09/20/2019 8:47 Notice Type: Medicare Outpatient Observation Notice Notice Delivered To: Patient Relationship to Patient: Self Disbursement Clerk Name: Mono Dumont Delivery Method: HAND - Hand Delivered Vero Days: Prior Verbal Notification: Recipient Understood Notice: Yes Recipient Signature: Yes Med Rec Note Co-signed by Attending: Coverage Notice Comment: ELLINGTON signed and original provided to patient. original to chart. Last DP export: 09/20/19 8:07 am Patient Name: MONO DUMONT Page 47543 at 0856 All edits/amendments must be made on the electronic document DICTATION DATE: 09/21/1954 AFTER SCHOOL COORDINATOR: PAOLO 09/21/19 0856 RPT#: [id number] DC DATE:09/20/19 STATUS: DIS IN [facility] [address] [place] [address] END OF REPORT
== END 2019-09-20 12:13 | disposition home or self-care (01) ==
LOC: D.ER 10:58 → OBSVTIME 13:05 → D.M2 13:05
PROVIDERS: Family Medicine; ADMIT Family Medicine; ATTEND Family Medicine
DX: N17.9 Acute kidney failure, unspecified (principal); I12.9 Hypertensive chronic kidney disease with stage 1 through stage 4 chronic kidney disease, or unspecified chronic kidney disease; N18.9 Chronic kidney disease, unspecified; J44.9 Chronic obstructive pulmonary disease, unspecified; I25.10 Atherosclerotic heart disease of native coronary artery without angina pectoris; E78.5 Hyperlipidemia, unspecified; G93.41 Metabolic encephalopathy; N13.9 Obstructive and reflux uropathy, unspecified

== ENCOUNTER 2019-12-14 12:50 | Inpatient (IN) | payer MEDICARE ==
[~2019-12-14] VITALS: Ht 165.1 cm; Wt 102.3 kg
[~2019-12-14 12:50] MED LIST changes: +HYDROCODON-ACE1 EA10 PO
--- NOTE | 2019-12-14 14:16 | NUR ---
RECEIVED PT FROM ADMISSIONS. PT IS AAO AND AD ALINE. ACCOMPANIED BY . RR EVEN AND UNLABORED ON RA. QUICKSTART, HISTORY, ASSESSMENT, AND MED REQ COMPLETE. PT DENIES ANY NEEDS AT THIS TIME. NO S/S OF DISTRESS NOTED. 16FR COUDE CATHETER PLACED WITH IMMEDIATE 250ML OF PALE YELLOW OUTPUT RECORDED. WILL CTM.
[2019-12-14 14:57] VITALS: BP 112/47; Ht 165.1 cm; Wt 102.3 kg
--- NOTE | 2019-12-14 15:06 | NUR ---
20GA PLACED TO THE LEFT FOREARM X1 ATTEMPT. FLUSHED WITH 10ML NS TO CONFIRM PATENCY. PT TOLERATED WELL. NS INFUSING @100ML/HR VIA L.FOR PIV. GUAJARDO IN PLACE. STAT LOCK IN PLACE. WILL CTM.
[2019-12-14 15:44] LABS: BILIRUBIN NEGATIVE (NEGATIVE); GLUCOSE NEGATIVE (NEGATIVE); KETONE NEGATIVE (NEGATIVE); NITRITE NEGATIVE (NEGATIVE); UROBILINOGEN NORMAL (NORMAL)
[2019-12-14 15:45] LABS: WHITE CELLS - URINE 0-5 /hpf (NEGATIVE)
[2019-12-14 15:46] LABS: BACTERIA FEW /hpf (NEGATIVE)
[2019-12-14 20:00] VITALS: BP 115/53
[2019-12-15] VITALS: BP 105/37
--- NOTE | 2019-12-15 03:18 | NUR ---
I have reviewed this patient and I concur with the Shift Assessment completed by the Licensed Practical Nurse today this shift.
[2019-12-15 04:00] VITALS: BP 103/58
[2019-12-15 06:48] LABS: BASOPHILS 0.6 % (0-2); EOSINOPHILS 6.6 % (0-7); HEMOGLOBIN 10.9 g/dL (13.5-17.5); IMMATURE GRANULOCYTES 0.6 % (0-5); LYMPHOCYTES 23.8 % (15-50); MCH 29.5 pg (26.0-34.0); MCHC 30.3 g/dL (31.0-37.0); MCV 97.6 fL (80.0-100.0); MEAN PLATELET VOLUME 9.6 fL (7.4-10.4); MONOCYTES 12.4 % (2-11); PLATELET COUNT 174 10x3/uL (130-400); RBC 3.69 10x6/uL (4.20-6.10); RDW 14.6 % (11.5-14.5); WBC 4.8 10x3/uL (4.8-10.8)
[2019-12-15 06:54] LABS: ANION GAP 8.1 mmol/L (8-16); CALCIUM 8.4 mg/dL (8.5-10.1); CARBON DIOXIDE 28.7 mmol/L (21.0-32.0); CREATININE - SERUM 1.4 mg/dL (0.6-1.3); POTASSIUM - SERUM 4.8 mmol/L (3.5-5.1)
--- NOTE | 2019-12-15 07:55 | NUR ---
REPORT RECIEVED. PT SITTING SEMI FOWLERS IN BED. RR EVEN AND UNLABORED ON 2L NC. HE HAS A L FA PIV INFUSING NS @ 100. HE HAS A GUAJARDO DRAINING URINE. BED LOCKED AND IN LOWEST POSITION, CALL LIGHT WITHIN REACH. WILL CTM
[2019-12-15 09:56] VITALS: BP 170/68
[2019-12-15 13:58] VITALS: BP 137/62
--- NOTE | 2019-12-15 15:04 | NUR ---
I have reviewed this patient and I concur with the Shift Assessment completed by the Licensed Practical Nurse today this shift.
[2019-12-16] VITALS: BP 124/61
--- NOTE | 2019-12-16 02:45 | NUR ---
I have reviewed this patient and I concur with the Shift Assessment completed by the Licensed Practical Nurse today this shift.
[2019-12-16 04:00] VITALS: BP 136/74
[2019-12-16 06:30] LABS: CALCIUM 8.4 mg/dL (8.5-10.1); CARBON DIOXIDE 27.7 mmol/L (21.0-32.0); CHLORIDE - SERUM 106 mmol/L (98-107); GLUCOSE 102 mg/dL (74-106); SODIUM 140 mmol/L (136-145)
[2019-12-16 07:19] LABS: BASOPHILS 0.3 % (0-2); EOSINOPHILS 4.2 % (0-7); HEMATOCRIT 35.3 % (42.0-54.0); HEMOGLOBIN 10.8 g/dL (13.5-17.5); IMMATURE GRANULOCYTES 0.3 % (0-5); LYMPHOCYTES 20.1 % (15-50); MCH 29.7 pg (26.0-34.0); MCHC 30.6 g/dL (31.0-37.0); MEAN PLATELET VOLUME 9.7 fL (7.4-10.4); MONOCYTES 11.6 % (2-11); NEUTROPHILS 63.5 % (40-80); PLATELET COUNT 174 10x3/uL (130-400); RBC 3.64 10x6/uL (4.20-6.10); RDW 14.6 % (11.5-14.5)
[2019-12-16 07:20] LABS: WBC 6.1 10x3/uL (4.8-10.8)
[2019-12-16 07:25] LABS: CALC OSMOLALITY 278 mosm/kg (275-300); CREATININE - SERUM 0.9 mg/dL (0.6-1.3); UREA NITROGEN 13 mg/dL (7-18); eGFR NON AFRICAN AMERICAN 88 mL/min (90-120)
[2019-12-16 09:00] VITALS: BP 150/69
--- NOTE | 2019-12-16 09:15 | MORECARE ---
CASE MANAGEMENT DISCHARGE SUMMARY PATIENT: MONO MENSAH UNIT: [id number] ADM DATE: 12/15/19 AGE: 74 : 47 SEX: M ROOM/BED: D.2126 AUTHOR: JOSEPH RÍOS PHYSICIAN: REFERRING PHYSICIAN: NADER SHORT MD DATE OF SERVICE: 12/16/19 Discharge Plan Patient Name: MONO MENSAH Facility: [facility]:[place] : 1945 Planned Disposition: Home with Home Health Anticipated Discharge Date: 12/16/19 Discharge Date: Expected LOS: 1 Initial Reviewer: [email or web address] Initial Review Date: 12/14/2019 Generated: 12/16/19 10:15 am External Providers External Provider: [facility] Next Contact Date: Service Request Date: Service Type: Resolution: Reviewer: Comments: Patient Name: MONO MENSAH Page 17815 at 0915 All edits/amendments must be made on the electronic document DICTATION DATE: 12/16/19914 RIGGING AND CONTROLS AIRCRAFT MECHANIC: PAOLO 12/16/19914 RPT#: [id number] DC DATE: STATUS: ADM IN [facility] [address] [place] [address] END OF REPORT
--- NOTE | 2019-12-16 09:22 | MORECARE ---
CASE MANAGEMENT DISCHARGE SUMMARY PATIENT: MONO MENSAH UNIT: [id number] ADM DATE: 12/15/19 AGE: 74 : 47 SEX: M ROOM/BED: D.2126 AUTHOR: JOSEPH RÍOS PHYSICIAN: REFERRING PHYSICIAN: NADER SHORT MD DATE OF SERVICE: 12/16/19 Discharge Plan Patient Name: MONO MENSAH [facility] [employer] [facility] 1945 Planned Disposition: Home with Home Health Anticipated Discharge Date: 12/16/19 Discharge Date: Expected LOS: 1 Initial Reviewer: [email or web address] Initial Review Date: 12/14/2019 Generated: 12/16/19 10:21 am DCPIA - Discharge Planning Initial Assessment Updated by [email or web address]: Lelo Fam on 12/16/19 9:18 am * Is the patient Alert and Oriented? Yes * How many steps to enter\exit or inside your home? 6/0 * PCP [facility] * Pharmacy [facility] * Preadmission Environment Home with Family * ADLs Independent * Equipment Other * Other Equipment SELF CATHETERS * List name and contact numbers for known caregivers / representatives who currently or will assist patient after discharge: SAMUEL MENSAH * Verbal permission to speak to the caregivers and representatives has been obtained from the patient. Yes * Community resources currently utilized None * Additional services required to return to the preadmission environment? Yes * Can the patient safely return to the preadmission environment? Yes * Has this patient been hospitalized within the prior 30 days at any hospital? No Last DP export: 12/16/19 8:15 a Patient Name: MONO MENSAH Page 96544 at 0922 All edits/amendments must be made on the electronic document DICTATION DATE: 12/16/19920 CUSTOMER SERVICE ATTENDANT: PAOLO 12/16/19920 RPT#: [id number] DC DATE: STATUS: ADM IN [facility] [address] [place] [address] END OF REPORT
--- NOTE | 2019-12-16 09:29 | MORECARE ---
CASE MANAGEMENT DISCHARGE SUMMARY PATIENT: MONO MENSAH UNIT: [id number] ADM DATE: 12/15/19 AGE: 74 : 47 SEX: M ROOM/BED: D.4492 AUTHOR: JOSEPH RÍOS PHYSICIAN: REFERRING PHYSICIAN: NADER SHORT MD DATE OF SERVICE: 12/16/19 Discharge Plan Patient Name: MONO MENSAH Facility: [facility]:[place] : 1945 Planned Disposition: Home with Home Health Anticipated Discharge Date: 12/16/19 Discharge Date: Expected LOS: 1 Initial Reviewer: [email or web address] Initial Review Date: 12/14/2019 Generated: 12/16/19 10:29 am Comments DCP- Discharge Planning Updated by [email or web address]: Lelo Fam on 12/16/19 8:[address] Patient Name: MONO MENSAH Admission Status: Elective Accout number: [id number] Admission Date: 12-15-2019 : 1945 Admission Diagnosis: Attending: NADER SHORT Current LOS: 1 Anticipated DC Date: 12-16-2019 Planned Disposition: Home with Home Health Primary Insurance: MEDICARE A & B Discharge Planning Comments: CM met with patient to complete initial dc planning assessment. CM educated patient on the CM role and verbal consent given by patient to complete assessment. CM verified patient's address, phone number, and emergency contact phone numbers. Patient lives at home with his Danni. At discharge patient plans to return home and feels this is a safe discharge. CM discussed availability of home health, rehab services, and medical equipment. Prior to admission pt self catheterized himself. Pt unable to recall supply company. At discharge the pt will have a [facility]. Pt in agreement for home health for [facility]. SIENA signed for [facility]. Cm called Mono at [phone], and faxed referral. Patient denies other known discharge needs at this time. Transportation provider at discharge will be Danni . DC IMM delivered, explained, signed by the patient, and placed in chart. Signed form also left with the patient. CM will continue to follow and will assist as needed with dc plans/needs. Internal Audit Consultant: Lelo Fam DCPIA - Discharge Planning Initial Assessment Updated by [email or web address]: Lelo Fam on 12/16/19 9:18 am * Is the patient Alert and Oriented? Yes * How many steps to enter\exit or inside your home? 6/0 * PCP [facility] * [facility] * Preadmission Environment Home with Family * ADLs Independent * Equipment Other * Other Equipment SELF CATHETERS * List name and contact numbers for known caregivers / representatives who currently or will assist patient after discharge: DANNI MENSAH * Verbal permission to speak to the caregivers and representatives has been obtained from the patient. Yes * Community resources currently utilized None * Additional services required to return to the preadmission environment? Yes * Can the patient safely return to the preadmission environment? Yes * Has this patient been hospitalized within the prior 30 days at any hospital? No Coverage Notice Reviewer: [email or web address] Deion Fam Notice Issued Date-Time: 12/16/2019 8:40 Notice Type: IM Discharge Notice Notice Delivered To: Patient Relationship to Patient: Assistant Women'S Rowing Coach Name: Delivery Method: HAND - Hand Delivered Vero Days: Prior Verbal Notification: Recipient Understood Notice: Yes Recipient Signature: Yes Med Rec Note Co-signed by Attending: Coverage Notice Comment: DC IMM delivered, explained, signed by the patient, and placed in chart. Signed form also left with the patient. Reviewer: [email or web address] Deion Fam Notice Issued Date-Time: 12/16/2019 8:40 Notice Type: Patient Choice Letter Notice Delivered To: Patient Relationship to Patient: Assistant Women'S Rowing Coach Name: Delivery Method: HAND - Hand Delivered Vero Days: Prior Verbal Notification: Recipient Understood Notice: Yes Recipient Signature: Yes Med Rec Note Co-signed by Attending: Coverage Notice Comment: care IV home health Last DP export: 12/16/19 8:22 a Patient Name: MONO MENSAH Page 41645 at 0929 All edits/amendments must be made on the electronic document DICTATION DATE: 12/16/19928 ART DIRECTOR: PAOLO 12/16/19928 RPT#: [id number] DC DATE: STATUS: ADM IN [facility] [address] [place] [address] END OF REPORT
--- NOTE | 2019-12-16 10:32 | NUR ---
DAUGHTER JULIÁN WHO WORKS IN MEDICAL RECORDS CONCERNED WITH PT GOING HOME WITH GUAJARDO SINCE LAST TIME BECAME SEPTIC. NO UROLOGY FOLLOW UP AVAILABLE DUE TO DR CARRASCO NOT SEEING PT NOW PER DAUGHTER. HAS APPT FOR CYSTOGRAM AT [facility] [place]. DR SHORT OFFICE CALLED AND MESSAGE SENT.
--- NOTE | 2019-12-16 15:11 | NUR ---
PT'S DISCHARGE INSTRUCTIONS REVIEWED AND SIGNED. BENNETT GOING HOME WITH PT. IV REMOVED.
== END 2019-12-16 15:12 | disposition home health service (06) | DRG 683 ==
LOC: D.M2 12:50 → OBSVTIME 12:50 → D.M2 12:50
PROVIDERS: ADMIT Family Medicine; ATTEND Family Medicine
DX: N17.9 Acute kidney failure, unspecified (principal); N39.0 Urinary tract infection, site not specified; I11.0 Hypertensive heart disease with heart failure; I50.9 Heart failure, unspecified; I25.10 Atherosclerotic heart disease of native coronary artery without angina pectoris; K59.00 Constipation, unspecified; N40.1 Benign prostatic hyperplasia with lower urinary tract symptoms; R33.8 Other retention of urine; Z95.0 Presence of cardiac pacemaker

== ENCOUNTER 2019-12-27 16:00 | Outpatient (CLI) | payer MEDICARE | END 2019-12-27 23:59 | disposition home or self-care (01) | LOC: D.MAMMO 16:00 | PROVIDERS: ATTEND Nurse Practitioner Family | DX: N63.42 Unspecified lump in left breast, subareolar (principal); Z85.46 Personal history of malignant neoplasm of prostate ==

== ENCOUNTER 2019-12-28 08:19 | Inpatient (IN) | payer MEDICARE ==
[~2019-12-28] VITALS: Ht 165.1 cm; Wt 105.7 kg
[2019-12-28 08:45] LABS: BASOPHILS 0.4 % (0-2); EOSINOPHILS 2.6 % (0-7); HEMATOCRIT 39.5 % (42.0-54.0); HEMOGLOBIN 12.3 g/dL (13.5-17.5); IMMATURE GRANULOCYTES 0.4 % (0-5); LYMPHOCYTES 14.9 % (15-50); MCH 29.8 pg (26.0-34.0); MCHC 31.1 g/dL (31.0-37.0); MCV 95.6 fL (80.0-100.0); MEAN PLATELET VOLUME 9.3 fL (7.4-10.4); MONOCYTES 10.9 % (2-11); NEUTROPHILS 70.8 % (40-80); RBC 4.13 10x6/uL (4.20-6.10); RDW 14.3 % (11.5-14.5); WBC 11.4 10x3/uL (4.8-10.8)
[2019-12-28 08:47] LABS: PLATELET COUNT 253 10x3/uL (130-400)
[2019-12-28 08:55] LABS: APTT 27.7 SECONDS (22.8-39.4); INR 0.93 (0.85-1.17); PROTIME 12.4 SECONDS (11.6-15.0)
[2019-12-28 09:01] LABS: CALC OSMOLALITY 284 mosm/kg (275-300); CALCIUM 8.3 mg/dL (8.5-10.1); CARBON DIOXIDE 27.6 mmol/L (21.0-32.0); CHLORIDE - SERUM 100 mmol/L (98-107); CREATININE - SERUM 3.9 mg/dL (0.6-1.3); GLUCOSE 109 mg/dL (74-106); POTASSIUM - SERUM 4.1 mmol/L (3.5-5.1); SODIUM 138 mmol/L (136-145); UREA NITROGEN 35 mg/dL (7-18); eGFR NON AFRICAN AMERICAN 16 mL/min (90-120)
[2019-12-28 09:08] VITALS: BP 85/64
[2019-12-28 09:21] LABS: ALBUMIN 3.9 g/dL (3.4-5.0); ALKALINE PHOSPHATASE 84 U/L (30-120); ALT (SGPT) 24 U/L (10-68); BILIRUBIN - TOTAL 0.21 mg/dL (0.2-1.3); CKMB 28.5 U/L (0.0-3.6); PROTEIN - SERUM 6.9 g/dL (6.4-8.2); THYROID STIMULATING HORMONE 3.46 uIU/mL (0.36-3.74)
[2019-12-28 09:22] LABS: CREATINE KINASE 1262 UL (21-232)
[2019-12-28 09:23] LABS: TROPONIN-I 0.099 ng/mL (0.000-0.060)
--- NOTE | 2019-12-28 10:05 | NUR ---
ATTEMPTED TO IRRIGATE FC. IRRIGATION SLN FLUSHES EASILY BUT UNABLE TO WITHDRAW. FC EXCHANGED AND MOD AMT IRRIGANT VS URINE CAME OUT OF MEATUS WHEN CATH REMOVED. NEW 16 FR PLACED WITHOUT DIFFICULTY AND NO URINE RTND. INFORMED DR FINK. SMALL AMT OF URINE VS IRRIGANT THAT RTND PLACED IN SPEC CUP AND SENT TO LAB
--- NOTE | 2019-12-28 10:06 | NUR ---
BLADDER SCAN = 389 ML. NO URINE IN FC BAG/TUBING. DR FINK NOTIFIED
[2019-12-28 10:10] VITALS: BP 125/71
[2019-12-28 10:41] LABS: BILIRUBIN NEGATIVE (NEGATIVE); GLUCOSE NEGATIVE (NEGATIVE); KETONE NEGATIVE (NEGATIVE); NITRITE NEGATIVE (NEGATIVE); UROBILINOGEN NORMAL (NORMAL)
[2019-12-28 10:50] LABS: UDS - AMPHET NEGATIVE QUAL (NEGATIVE); UDS - BARB NEGATIVE QUAL (NEGATIVE); UDS - BENZO NEGATIVE QUAL (NEGATIVE); UDS - COCAINE NEGATIVE QUAL (NEGATIVE); UDS - OPIATE POSITIVE QUAL (NEGATIVE); UDS - PCP NEGATIVE QUAL (NEGATIVE); UDS - THC NEGATIVE QUAL (NEGATIVE)
[2019-12-28 10:53] LABS: AMORPHOUS SEDIMENT <1+ /lpf (NONE SEEN); BACTERIA FEW /hpf (NEGATIVE); EPITHELIAL CELLS 0-5 /hpf (0-5); RED CELLS - URINE 0-5 /hpf (0-5); WHITE CELLS - URINE 0-5 /hpf (NEGATIVE)
[2019-12-28 12:00] VITALS: BP 112/89
--- NOTE | 2019-12-28 13:49 | NUR ---
fc draining scant amts cloudy yellow urine to bsb. Dr Lance @ BS talking with pt and family
[2019-12-28 13:50] VITALS: BP 109/60
[2019-12-28 16:29] LABS: CKMB 30.8 U/L (0.0-3.6)
[2019-12-28 16:37] LABS: CREATINE KINASE 1302 UL (21-232)
[2019-12-28 16:38] LABS: TROPONIN-I 0.143 ng/mL (0.000-0.060)
--- NOTE | 2019-12-28 17:20 | NUR ---
ARRIVE TO ROOM VIA STRETCHER FROM ER. TRANSFER TO BED X2 PEOPLE. LETHARGIC, AROUSES TO DEEP STIMULI. QUICKLY RETURNS TO SLEEP. SLOW TO RESPOND. UNABLE TO OBTAIN PHARMACY OR VERIFY MEDICATIONS DUE TO LETHARGIC. WILL TRY TO GET AHOLD OF SPOUSE. SCDs ON.
[2019-12-28 17:42] VITALS: BP 104/71; BMI 38.9
--- NOTE | 2019-12-28 19:47 | NUR ---
REPORT RECEIVED AND ROUNDING COMPLETE. PATIENT LAYING IN BED IN LOW FOWLERS, EYES CLOSED BREATHING SHALLOW BUT EVEN, WOKE WITH LOUD TALKING AND FEEL BACK TO SLEEP QUICKLY WHEN I WAS TALKING. NO DISTRESS NOTED. CALL LIGHT WITHIN REACH AND BED IN ALARM ON. GUAJARDO CATH IN PLACE WITH SCANT AMOUNT OF URINE IN GUAJARDO BAG. RIGHT HAND PIV THAT IS SALINE LOCKED AT THIS TIME.
[2019-12-28 20:00] VITALS: BP 105/55
[2019-12-28 22:14] LABS: CKMB 31.4 U/L (0.0-3.6)
[2019-12-28 22:19] LABS: CREATINE KINASE 1379 UL (21-232)
[2019-12-28 22:20] LABS: TROPONIN-I 0.136 ng/mL (0.000-0.060)
[2019-12-29] VITALS: BP 95/47
--- NOTE | 2019-12-29 01:08 | NUR ---
SANTOS IS LETHARGIC AND HARD TO WAKE, DISCUSSED MEDICATIONS WITH CHARGE NURSE AND THEN CALLED . STATES THAT HE WAS GIVEN HIS MEDICATIONS BEFORE HE CAME TO THE HOSPITAL. WILL START NARCOTICS AT NEXT DOSE.
[2019-12-29 03:53] LABS: BASOPHILS 0.1 % (0-2); EOSINOPHILS 2.9 % (0-7); HEMATOCRIT 37.9 % (42.0-54.0); HEMOGLOBIN 11.7 g/dL (13.5-17.5); IMMATURE GRANULOCYTES 0.5 % (0-5); LYMPHOCYTES 11.6 % (15-50); MCH 29.8 pg (26.0-34.0); MCHC 30.9 g/dL (31.0-37.0); MCV 96.7 fL (80.0-100.0); MEAN PLATELET VOLUME 9.5 fL (7.4-10.4); MONOCYTES 8.8 % (2-11); NEUTROPHILS 76.1 % (40-80); PLATELET COUNT 220 10x3/uL (130-400); RBC 3.92 10x6/uL (4.20-6.10); RDW 14.5 % (11.5-14.5); WBC 10.8 10x3/uL (4.8-10.8)
[2019-12-29 04:00] VITALS: BP 107/49
[2019-12-29 04:28] LABS: ALBUMIN 3.5 g/dL (3.4-5.0); ALKALINE PHOSPHATASE 77 U/L (30-120); ALT (SGPT) 24 U/L (10-68); BILIRUBIN - TOTAL 0.39 mg/dL (0.2-1.3); CALCIUM 7.6 mg/dL (8.5-10.1); CHLORIDE - SERUM 99 mmol/L (98-107); GLUCOSE 105 mg/dL (74-106); POTASSIUM - SERUM 4.4 mmol/L (3.5-5.1); SODIUM 136 mmol/L (136-145)
[2019-12-29 04:33] LABS: CALC OSMOLALITY 283 mosm/kg (275-300); CREATINE KINASE 1262 UL (21-232); CREATININE - SERUM 5.6 mg/dL (0.6-1.3); UREA NITROGEN 45 mg/dL (7-18); eGFR NON AFRICAN AMERICAN 11 mL/min (90-120)
[2019-12-29 04:34] LABS: TROPONIN-I 0.126 ng/mL (0.000-0.060)
[2019-12-29 08:50] VITALS: BP 96/59
[2019-12-29 11:27] VITALS: BP 126/73
[2019-12-29 13:06] VITALS: BMI 38.7
--- NOTE | 2019-12-29 13:37 | HP ---
PATIENT: MONO MENSAH MEDICAL RECORD: [id number] ACCOUNT: [id number] LOCATION:[address] : [birth year] ADMISSION DATE: 12/28/19 PCP: NADER SHORT HISTORY AND PHYSICAL EXAMINATION DATE OF ADMISSION: 12/28/2019 CHIEF COMPLAINT: Altered mental status, decreased urine output. HISTORY OF PRESENT ILLNESS: This is a 74-year-old white male with history of chronic bladder/urinary problems. He has history of prostate cancer, mild chronic kidney disease and several admissions in the hospital with similar complaints, urinary difficulty. When his creatinine goes up, he starts becoming more confused. This happened this time as well and in the ER, his creatinine was up to 3.9, which is the highest I have seen in the past. The patient was in the hospital about 2 weeks ago and he left with a Morales catheter. He followed up with Paradise Cid APN, at [facility], after the catheter apparently got clogged, they had to remove it, apparently a blood clot or something was found. The patient is followed by urologist at [facility] and has a procedure scheduled, but it still over a month away, there at [facility]. With the patient's acute renal failure, decreased urine output, and change in mental status, he is admitted into the hospital. PAST MEDICAL AND SURGICAL HISTORY: Hypertension, history of prostate cancer, psoriatic arthritis, followed by rheumatology at [facility]. He has sleep apnea on BiPAP. Has a history of COPD, coronary artery disease, reflux and hyperlipidemia. PAST SURGICAL HISTORY: He has had a TURP. He has had angioplasties and cervical fusion. He has had carpal tunnel release and pacemaker placement. ALLERGIES: HE IS INTOLERANT TO STATINS. HOME MEDICATIONS: Include sulfasalazine 1000 mg twice a day, baclofen 10 mg t.i.d., Flomax once a day, Cardizem-CD 240 once a day, olmesartan 40 mg once a day, clonidine 0.1 p.r.n. elevated blood pressure. He is on morphine extended release 15 mg q.12 hours, Effexor 75 mg twice a day, gabapentin 300 mg at bedtime, and hydrocodone 10/325 q.8 hours p.r.n. He is on Lasix 20 mg p.r.n. lower extremity edema, Zofran p.r.n. nausea, Protonix 40 mg twice a day, and Plaquenil 200 mg once a day. HABITS: Former smoker, no alcohol or drugs. SOCIAL HISTORY: Retired, lives with his . FAMILY HISTORY: Mother had rheumatoid arthritis. Sister with rheumatoid arthritis. REVIEW OF SYSTEMS: Really unable to obtain due to his somnolence. He will wake up and go right back to sleep, but there has no major weight changes recently. HEENT: No particular sinus or allergy problems. RESPIRATORY: Has history of COPD, sleep apnea on BiPAP. CARDIOLOGY: He has history of coronary artery disease and arrhythmias, followed by the higher level teaching assistant here. GASTROINTESTINAL: Has reflux. HISTORY AND PHYSICAL [id number] MONO MENSAH GENITOURINARY: See above history. He has been self-cathing at home and doing pretty well with that. MUSCULOSKELETAL: History of psoriatic arthritis followed by [facility]. NEUROLOGIC: No migraines or seizures. PHYSICAL EXAMINATION: VITAL SIGNS: Afebrile, heart rate 71, respirations 10-12, blood pressure 109/60, O2 sats 97%. He was seen while in the ER at approximately 13:40 on 12/28/2019. GENERAL: He was somnolent. He will open his eyes and answer a question or 2 and go right back to sleep. SKIN: Warm and dry. NECK: Supple. No JVD or bruit. HEART: Regular rate and rhythm. LUNGS: Fairly clear. ABDOMEN: Soft, nontender. EXTREMITIES: No edema. LABORATORY DATA: Ammonia level was 22. INR was 0.93. Urine drug screen positive for opiates. Urinalysis; straw hazy urine, 1+ blood, 1+ leukocyte esterase. There were a few bacteria. CBC with a white count of 11,400; hemoglobin 12.3, platelets are normal. Sodium 138, potassium 4.1, chloride 100, CO2 27.6, BUN 35, creatinine 3.9, glucose 109, lactic acid 1.6. Liver enzymes were normal. CK is elevated at 1379. Troponin is elevated at 0.136. INR 0.93. ASSESSMENT: 1. Acute mental status change. 2. Acute kidney failure over chronic renal disease. 3. History of prostate cancer. 4. History of coronary artery disease. PLAN: A Morales catheter has been placed and we will see if he has a usual response with good urinary outflow and see if his creatinine goes down. Other tests or procedures as warranted. TRANSINT:[id number] Voice Confirmation ID: [id number] DOCUMENT ID: [id number] CHUYITA ROSALES MD at 1337 CC: [id number] DICTATION DATE: 12/29/19 0943 CHIEF DIETITIAN: 12/29/19 1245 ADM IN [facility] [address] [id number]
[2019-12-29 17:08] VITALS: Ht 165.1 cm; Wt 105.7 kg
[2019-12-29 17:55] LABS: BILIRUBIN NEGATIVE (NEGATIVE); GLUCOSE NEGATIVE (NEGATIVE); KETONE NEGATIVE (NEGATIVE); NITRITE NEGATIVE (NEGATIVE); UROBILINOGEN NORMAL (NORMAL)
[2019-12-29 17:56] LABS: BACTERIA MANY /hpf (NEGATIVE); RED CELLS - URINE >50 /hpf (0-5); WHITE CELLS - URINE 0-5 /hpf (NEGATIVE)
--- NOTE | 2019-12-30 04:55 | NUR ---
CALLED TO ROOM BY RN DUE TO PT OWN TRILOGY UNIT ALARMING. PT IS NOT ON RT SERVICE. EXPLAINED TO PT DAUGHTER THAT WE DO NOT RUN HOME TRILOGY UNITS. PT OR PT FAMILY IS RESPONSIBLE FOR RUNNING THEIR OWN MACHINE. DAUGHTER STATES"SO I'M SUPPOSED TO GET UP AND GO OVER THERE AND SILENCE THAT ALARM MYSELF?" I SAID YES, WE DO NOT SET THEM UP OR RUN THEM. THE ALARM THAT WAS SHOWING WAS A CIRCUIT DISCONNECT AND IT DOES NOT APPEAR TO BE DISCONNECTED, IF SHE FEELS THERE IS A PROBLEM WITH THE MACHINE SHE CAN REMOVE PT FROM MACHINE (SHE WAS THE ONE WHO SET IT UP) AND CONTACT HER [facility] TO HAVE IT CHECKED OUT.
[2019-12-30 06:26] LABS: BASOPHILS 0.1 % (0-2); EOSINOPHILS 1.7 % (0-7); HEMATOCRIT 33.8 % (42.0-54.0); HEMOGLOBIN 10.6 g/dL (13.5-17.5); IMMATURE GRANULOCYTES 0.5 % (0-5); LYMPHOCYTES 11.8 % (15-50); MCH 29.9 pg (26.0-34.0); MCHC 31.4 g/dL (31.0-37.0); MCV 95.2 fL (80.0-100.0); MEAN PLATELET VOLUME 9.6 fL (7.4-10.4); MONOCYTES 10.3 % (2-11); NEUTROPHILS 75.6 % (40-80); PLATELET COUNT 198 10x3/uL (130-400); RBC 3.55 10x6/uL (4.20-6.10); RDW 14.7 % (11.5-14.5); WBC 10.4 10x3/uL (4.8-10.8)
[2019-12-30 06:43] LABS: ANION GAP 16.6 mmol/L (8-16); CALCIUM 7.8 mg/dL (8.5-10.1); CARBON DIOXIDE 23.8 mmol/L (21.0-32.0); POTASSIUM - SERUM 4.4 mmol/L (3.5-5.1)
--- NOTE | 2019-12-30 08:42 | NUR ---
I CALLED [facility] TO SEE WHO WILL BE SEEING THE PATIENT TODAY AND ALSO NEEDING AN ORDER FOR THE HOME TRILOGY. I SPOKE WITH KINGS FROM THE CLINIC, SHE IS TO FIND OUT AND CALL ME BACK SO I CAN LET THE FAMILY KNOW.
[2019-12-30 08:58] VITALS: BP 151/72
--- NOTE | 2019-12-30 09:34 | NUR ---
KINGS WITH [facility] TO CALL BACK AND STATES THAT DR ROSALES WILL SEE PATIENT TODAY WHEN CLINIC IS DONE. GIVEN OKAY FOR PATIENT TO USE HOME TRILOGY.
--- NOTE | 2019-12-30 09:34 | NUR ---
I SPOKE WITH THE PATIENT AND NURSE, NISHA AND RELAYED THIS INFORMATION TO BOTH OF THEM. NO FAMILY IN ROOM AT THIS TIME.
[2019-12-30 11:24] VITALS: BP 107/60
[2019-12-30 15:17] VITALS: BP 187/67
[2019-12-30 18:31] VITALS: BP 165/59
--- NOTE | 2019-12-30 18:36 | NUR ---
GUAJARDO INSERTED BY THIS NURSE
--- NOTE | 2019-12-30 19:43 | NUR ---
ROUNDED ON PT AND PT IS WILLING TO ALLOW GUAJARDO TO STAY IN PLACE NO OTHER NEEDS KNOWN BED LOW AND LOCKED CALL LIGHT IS WITH PT IS LEAVING BEDSIDE
[2019-12-31 07:02] LABS: BASOPHILS 0.2 % (0-2); HEMATOCRIT 34.5 % (42.0-54.0); HEMOGLOBIN 10.7 g/dL (13.5-17.5); IMMATURE GRANULOCYTES 0.3 % (0-5); LYMPHOCYTES 10.3 % (15-50); MCH 29.4 pg (26.0-34.0); MCV 94.8 fL (80.0-100.0); MEAN PLATELET VOLUME 9.9 fL (7.4-10.4); MONOCYTES 9.1 % (2-11); NEUTROPHILS 79.1 % (40-80); PLATELET COUNT 209 10x3/uL (130-400); RBC 3.64 10x6/uL (4.20-6.10); RDW 14.4 % (11.5-14.5)
[2019-12-31 08:06] LABS: CALC OSMOLALITY 295 mosm/kg (275-300); CALCIUM 8.4 mg/dL (8.5-10.1); CARBON DIOXIDE 25.1 mmol/L (21.0-32.0); CHLORIDE - SERUM 108 mmol/L (98-107); CREATINE KINASE 863 UL (21-232); CREATININE - SERUM 1.2 mg/dL (0.6-1.3); GLUCOSE 106 mg/dL (74-106); POTASSIUM - SERUM 4.6 mmol/L (3.5-5.1); SODIUM 143 mmol/L (136-145); UREA NITROGEN 44 mg/dL (7-18); eGFR NON AFRICAN AMERICAN 63 mL/min (90-120)
[2019-12-31 08:10] LABS: CKMB 6.1 U/L (0.0-3.6)
[2019-12-31 08:49] VITALS: BP 178/62
--- NOTE | 2019-12-31 10:25 | NUR ---
ADMININSTERED ORDERED DOSE OF PLAQUENIL @0850. COMPUTER IN ROOM SHUT DOWN IN THE MIDDLE OF SCANNING MEDS. CALLED PHARMACY AND IT. WILL CTM.
[2019-12-31 12:00] VITALS: BP 200/71
--- NOTE | 2019-12-31 13:24 | NUR ---
Nutrition Follow-up: Pt sleeping soundly at time of visit this AM. Nursing reports pt did not want to eat breakfast this AM but overall has been eating >50% of meals. Diet: Cardiac Wt: 233# (12/28) Labs reviewed Meds noted: Protonix, NS @ 100 -Encourage PO intake and honor food preferences within diet restrictions. -Offer nutrition supplements. -Monitor wt. -RD following.
--- NOTE | 2019-12-31 16:44 | NUR ---
PAGED @6788 TO OBTAIN ORDER FOR PRN ANTIHYPERTENSIVE. HAVE NOT RECEIVED CALL BACK @4644. WILL CTM.
[2019-12-31 19:15] LABS: ALKALINE PHOSPHATASE 62 U/L (30-120); ALT (SGPT) 24 U/L (10-68); BILIRUBIN - TOTAL 0.42 mg/dL (0.2-1.3); CALC OSMOLALITY 291 mosm/kg (275-300); CALCIUM 8.7 mg/dL (8.5-10.1); CARBON DIOXIDE 24.9 mmol/L (21.0-32.0); CHLORIDE - SERUM 104 mmol/L (98-107); GLUCOSE 118 mg/dL (74-106); POTASSIUM - SERUM 4.4 mmol/L (3.5-5.1); SODIUM 143 mmol/L (136-145); UREA NITROGEN 29 mg/dL (7-18); eGFR NON AFRICAN AMERICAN 78 mL/min (90-120)
--- NOTE | 2019-12-31 20:24 | NUR ---
RECEIVED UP IN BED WITH TRILOGY IN PLACE. ALERT AND ORIENTED X4. UP WITH ASSIST. IV TO LT FA WITH NS AT 100CC/HR. F/C INTACT WITH CLEAR YELLOW URINE IN BEDSIDE DRAINAGE BAG. TELEMETRY IN PLACE. PACEMAKER TO LT CHEST. DENIES ANY NEEDS AT THIS TIME.
[2019-12-31 20:45] VITALS: BP 113/56
[2020-01-01 00:45] VITALS: BP 189/74
[2020-01-01 04:45] VITALS: BP 197/78
--- NOTE | 2020-01-01 07:00 | NUR ---
RECEIVED REPORT. ASSUMED CARE OF PATIENT. PATIENT RESTING IN BED WITH EYES OPEN. RESP EVEN AND UNLABORED. CALL LIGHT WITHIN REACH. WHITE BOARD UPDATED. BEDSIDE SHIFT REPORT COMPLETE. CATHETER EMPTYED AT THIS TIME, 1400CC TEA COLORED URINE. NO DISTRESS.
[2020-01-01 07:24] LABS: BASOPHILS 0.2 % (0-2); EOSINOPHILS 2.5 % (0-7); HEMATOCRIT 34.7 % (42.0-54.0); HEMOGLOBIN 10.9 g/dL (13.5-17.5); IMMATURE GRANULOCYTES 0.4 % (0-5); LYMPHOCYTES 16.1 % (15-50); MCH 29.8 pg (26.0-34.0); MCHC 31.4 g/dL (31.0-37.0); MCV 94.8 fL (80.0-100.0); MEAN PLATELET VOLUME 9.9 fL (7.4-10.4); MONOCYTES 9.1 % (2-11); NEUTROPHILS 71.7 % (40-80); PLATELET COUNT 226 10x3/uL (130-400); RBC 3.66 10x6/uL (4.20-6.10); RDW 14.2 % (11.5-14.5); WBC 8.2 10x3/uL (4.8-10.8)
[2020-01-01 08:56] LABS: CALCIUM 8.5 mg/dL (8.5-10.1); CARBON DIOXIDE 24.5 mmol/L (21.0-32.0); CHLORIDE - SERUM 112 mmol/L (98-107); CREATININE - SERUM 0.9 mg/dL (0.6-1.3); GLUCOSE 90 mg/dL (74-106); POTASSIUM - SERUM 4.4 mmol/L (3.5-5.1); SODIUM 146 mmol/L (136-145); eGFR NON AFRICAN AMERICAN 88 mL/min (90-120)
[2020-01-01 09:04] LABS: CALC OSMOLALITY 293 mosm/kg (275-300); CREATINE KINASE 647 UL (21-232); UREA NITROGEN 20 mg/dL (7-18)
[2020-01-01 09:28] LABS: CKMB 6.4 U/L (0.0-3.6)
--- NOTE | 2020-01-01 12:00 | NUR ---
PATIENT HAPPY TO REPORT HE IS GETTING TO GO HOME TODAY. AWAITING DISCHARGE ORDERS/PAPERWORK AT THIS TIME.
[2020-01-01] MEDS ORDERED: URISPAS100 MG PO (12:06)
--- NOTE | 2020-01-01 13:30 | NUR ---
PAGED FOR ORDER FOR PATIENTS HTN, BP 254/90 AND CLONIDINE WAS NOT RESTARTED.
--- NOTE | 2020-01-01 14:24 | NUR ---
BP MEDS RESTARTED PER . PATIENT WILL REMAIN ON UNIT X 2 HOURS TO MONITOR BP BEFORE LETTING PATIENT GO HOME.
--- NOTE | 2020-01-01 16:01 | NUR ---
RECHECKED PATIENTS BP, 172/76. PATIENT IS ABLE TO DISCHARGE TO HOME NOW.
--- NOTE | 2020-01-01 16:36 | NUR ---
PATIENT LEFT UNIT VIA WHEELCHAIR AT THIS TIME. PATIENT LEFT UNIT WITH ALL PERSONAL BELONGINGS INCLUDING TRILOGY HOME MACHINE. PATIENT THANKED THIS NURSE FOR ALL CARES RENEDERED. NO DISTRESS UPON LEAVING UNIT WITH HIS SPOUSE.
--- NOTE | 2020-01-02 09:35 | MORECARE ---
CASE MANAGEMENT DISCHARGE SUMMARY PATIENT: MONO MENSAH UNIT: [id number] ADM DATE: 12/28/19 AGE: 74 : 47 SEX: M ROOM/BED: D.3802 AUTHOR: JOSEPH RÍOS PHYSICIAN: REFERRING PHYSICIAN: CHUYITA ROSALES MD DATE OF SERVICE: 01/02/20 Discharge Plan Patient Name: MONO MENSAH Facility: [facility]:[place] : 1945 Planned Disposition: Home with Home Health Anticipated Discharge Date: Discharge Date: 01/01/2020 Expected LOS: Initial Reviewer: [email or web address] Initial Review Date: 12/28/2019 Generated: 01/02/20 10:35 am DCPIA - Discharge Planning Initial Assessment Updated by [email or web address]: Lelo Fam on 01/02/20 9:30 am * Is the patient Alert and Oriented? Yes * How many steps to enter\exit or inside your home? 0/0 * PCP [facility] * Preadmission Environment Home with Family * ADLs Independent * Equipment Catheter Supplies * Community resources currently utilized None * Additional services required to return to the preadmission environment? Yes * Can the patient safely return to the preadmission environment? Yes * Has this patient been hospitalized within the prior 30 days at any hospital? Yes External Providers External Provider: [facility] Next Contact Date: Service Request Date: Service Type: Resolution: Reviewer: Comments: Patient Name: MONO MENSAH Page 15865 at 0935 All edits/amendments must be made on the electronic document DICTATION DATE: 01/02/20934 CONTACT LENS BLOCKER: PAOLO 01/02/20 0935 RPT#: [id number] DC DATE:01/01/20 STATUS: DIS IN [facility] [address] [place] [address] END OF REPORT
--- NOTE | 2020-01-02 09:42 | MORECARE ---
CASE MANAGEMENT DISCHARGE SUMMARY PATIENT: MONO MENSAH UNIT: [id number] ADM DATE: 12/28/19 AGE: 74 : 47 SEX: M ROOM/BED: D.6603 AUTHOR: JOSEPH RÍOS PHYSICIAN: REFERRING PHYSICIAN: CHUYITA ROSALES MD DATE OF SERVICE: 01/02/20 Discharge Plan Patient Name: MONO MENSAH Facility: [facility]:[place] : 1945 Planned Disposition: Home with Home Health Anticipated Discharge Date: Discharge Date: 01/01/2020 Expected LOS: Initial Reviewer: [email or web address] Initial Review Date: 12/28/2019 Generated: 01/02/20 10:42 am Comments DCP- Discharge Planning Updated by [email or web address]: Lelo Fam on 01/02/20 8:[address] Patient Name: MONO MENSAH Admission Status: ER Accout number: [id number] Admission Date: 12-28-2019 : 1945 Admission Diagnosis: Attending: CHUYITA ROSALES Current LOS: 4 Anticipated DC Date: Planned Disposition: Home with Home Health Primary Insurance: MEDICARE A & B Discharge Planning Comments: CM met with patient to complete initial dc planning assessment. CM educated patient on the CM role and verbal consent given by patient to complete assessment. CM verified patient's address, phone number, and emergency contact phone numbers. Patient lives at home with his . At discharge patient plans to return home and feels this is a safe discharge. CM discussed availability of home health, rehab services, and medical equipment. pt currently has an indwelling catheter and will require [facility] care. Pt is in agreement to have home health and SIENA signed for [place]. [facility] [place] states they will accept and will see on the next available appointment time of Friday. Patient denied known discharge needs at this time. Transportation provider at discharge will be his . CM will continue to follow and will assist as needed with dc plans/needs. DC IMM delivered, explained, signed by the patient, and placed in chart. Signed form also left with the patient. Business Continuity Analyst: Lelo Fam DCPIA - Discharge Planning Initial Assessment Updated by [email or web address]: Lelo Fam on 01/02/20 9:30 am * Is the patient Alert and Oriented? Yes * How many steps to enter\exit or inside your home? 0/0 * PCP [facility] * Preadmission Environment Home with Family * ADLs Independent * Equipment Catheter Supplies * Community resources currently utilized None * Additional services required to return to the preadmission environment? Yes * Can the patient safely return to the preadmission environment? Yes * Has this patient been hospitalized within the prior 30 days at any hospital? Yes Last DP export: 01/02/20 8:35 a Patient Name: MONO MENSAH Page 95001 at 0942 All edits/amendments must be made on the electronic document DICTATION DATE: 01/02/20941 PUBLICATION EDITOR: PAOLO 01/02/20941 RPT#: [id number] DC DATE:01/01/20 STATUS: DIS IN [facility] [address] [place] [address] END OF REPORT
--- NOTE | 2020-01-04 19:02 | MORECARE ---
CASE MANAGEMENT DISCHARGE SUMMARY PATIENT: MONO MENSAH UNIT: [id number] ADM DATE: 12/28/19 AGE: 74 : 47 SEX: M ROOM/BED: D.9264 AUTHOR: JOSEPH RÍOS PHYSICIAN: REFERRING PHYSICIAN: CHUYITA ROSALES MD DATE OF SERVICE: 01/04/20 Discharge Plan Patient Name: MONO MENSAH Facility: [facility]:[place] : 1945 Planned Disposition: Home with Home Health Anticipated Discharge Date: Discharge Date: 01/01/2020 Expected LOS: Initial Reviewer: [email or web address] Initial Review Date: 12/28/2019 Generated: 01/04/20 8:02 pm Comments DCP- Discharge Planning Updated by [email or web address]: Lelo Fam on 01/02/20 8:[address] Patient Name: MONO MENSAH Admission Status: ER Accout number: [id number] Admission Date: 12-28-2019 : 1945 Admission Diagnosis: Attending: CHUYITA ROSALES Current LOS: 4 Anticipated DC Date: Planned Disposition: Home with Home Health Primary Insurance: MEDICARE A & B Discharge Planning Comments: CM met with patient to complete initial dc planning assessment. CM educated patient on the CM role and verbal consent given by patient to complete assessment. CM verified patient's address, phone number, and emergency contact phone numbers. Patient lives at home with his . At discharge patient plans to return home and feels this is a safe discharge. CM discussed availability of home health, rehab services, and medical equipment. pt currently has an indwelling catheter and will require [facility] care. Pt is in agreement to have home health and SIENA signed for [place]. [facility]. [place] states they will accept and will see on the next available appointment time of Friday. Patient denied known discharge needs at this time. Transportation provider at discharge will be his . CM will continue to follow and will assist as needed with dc plans/needs. DC IMM delivered, explained, signed by the patient, and placed in chart. Signed form also left with the patient. Mold Yard Worker: Lelo Fam DCPIA - Discharge Planning Initial Assessment Updated by [email or web address]: Lelo Fam on 01/02/20 9:30 am * Is the patient Alert and Oriented? Yes * How many steps to enter\exit or inside your home? 0/0 * PCP [facility] * Preadmission Environment Home with Family * ADLs Independent * Equipment Catheter Supplies * Community resources currently utilized None * Additional services required to return to the preadmission environment? Yes * Can the patient safely return to the preadmission environment? Yes * Has this patient been hospitalized within the prior 30 days at any hospital? Yes Last DP export: 01/02/20 8:42 a Patient Name: MONO MENSAH Page 24480 at 1902 All edits/amendments must be made on the electronic document DICTATION DATE: 01/04/201901 SET UP AND CHARGER: PAOLO 01/04/201901 RPT#: [id number] DC DATE:01/01/20 STATUS: DIS IN [facility] [address] [place] [address] END OF REPORT
== END 2020-01-01 16:30 | disposition home health service (06) | DRG 682 ==
LOC: D.ER 08:19 → D.EDHOLD 11:09 → D.M2 11:09
PROVIDERS: Family Medicine; Internal Medicine Nephrology; ADMIT Family Medicine; ATTEND Family Medicine
DX: N17.9 Acute kidney failure, unspecified (principal); G93.41 Metabolic encephalopathy; I13.0 Hypertensive heart and chronic kidney disease with heart failure and stage 1 through stage 4 chronic kidney disease, or unspecified chronic kidney disease; M62.82 Rhabdomyolysis; N39.0 Urinary tract infection, site not specified; I25.10 Atherosclerotic heart disease of native coronary artery without angina pectoris; N18.9 Chronic kidney disease, unspecified; I50.9 Heart failure, unspecified; Z95.0 Presence of cardiac pacemaker; K21.9 Gastro-esophageal reflux disease without esophagitis; N32.89 Other specified disorders of bladder

== ENCOUNTER → 2020-07-14 12:54 | Outpatient (CLI) | payer MEDICARE ==
[2020-05-03 13:36] VITALS: BMI 38.2
[~2020-07-14 12:54] MED LIST changes: +NORVASC2.5 MG PO
[2020-07-14 13:20] LABS: BASOPHILS 0.3 % (0-2); EOSINOPHILS 3.7 % (0-7); HEMATOCRIT 39.6 % (42.0-54.0); HEMOGLOBIN 12.6 g/dL (13.5-17.5); IMMATURE GRANULOCYTES 0.6 % (0-5); LYMPHOCYTE ABS# 1.79 10x3/uL (1.32-3.57); LYMPHOCYTES 18.9 % (15-50); MCH 30.5 pg (26.0-34.0); MCHC 31.8 g/dL (31.0-37.0); MCV 95.9 fL (80.0-100.0); MEAN PLATELET VOLUME 9.3 fL (7.4-10.4); MONOCYTES 8.9 % (2-11); NEUTROPHIL ABS# 6.39 10x3/uL (1.78-5.38); NEUTROPHILS 67.6 % (40-80); PLATELET COUNT 221 10x3/uL (130-400); RBC 4.13 10x6/uL (4.20-6.10); RDW 14.1 % (11.5-14.5); WBC 9.5 10x3/uL (4.8-10.8)
[2020-07-14 13:42] LABS: ANION GAP 9.7 mmol/L (8-16); BILIRUBIN - TOTAL 0.27 mg/dL (0.2-1.3); CALCIUM 8.9 mg/dL (8.5-10.1); CARBON DIOXIDE 30.2 mmol/L (21.0-32.0); CREATININE - SERUM 2.3 mg/dL (0.6-1.3); POTASSIUM - SERUM 3.9 mmol/L (3.5-5.1); PROTEIN - SERUM 6.9 g/dL (6.4-8.2)
== END | disposition home or self-care (01) ==
LOC: D.RAD 12:54
DX: Z01.818 Encounter for other preprocedural examination (principal)

== ENCOUNTER → 2020-08-24 16:52 | Outpatient (CLI) | payer MEDICARE ==
[2020-05-03 13:36] VITALS: BMI 38.2
[2020-08-24 17:28] LABS: CHOL - HDL RATIO 3.3 ratio (2.3-4.9); LDL-HDL RATIO 2.1 ratio (1.5-3.5)
== END | disposition home or self-care (01) ==
LOC: D.LABREF 16:52
PROVIDERS: ATTEND Nurse Practitioner
DX: I25.10 Atherosclerotic heart disease of native coronary artery without angina pectoris (principal); E78.5 Hyperlipidemia, unspecified

== ENCOUNTER → 2020-10-31 18:45 | Outpatient (CLI) | payer MEDICARE ==
[2020-05-03 13:36] VITALS: BMI 38.2
[2020-10-31 19:23] LABS: CHOL - HDL RATIO 3.2 ratio (2.3-4.9); LDL-HDL RATIO 1.9 ratio (1.5-3.5)
== END | disposition home or self-care (01) ==
LOC: D.LABREF 18:45
PROVIDERS: ATTEND Nurse Practitioner
DX: I25.10 Atherosclerotic heart disease of native coronary artery without angina pectoris (principal); E78.5 Hyperlipidemia, unspecified